=== PATIENT | female | born 1945 | race Caucasian/White ===

== ENCOUNTER 2016-12-09 09:41 | Inpatient (IN) | payer MEDICARE ==
[2016-12-09] MEDS ORDERED: SODIUM CHLORIDE 0.9% 1,000 ML IV STA (10:49)
[2016-12-09] MEDS ORDERED: IPRATROPIUM-ALBUTEROL 3 ML NEB INHALATION STA (10:50)
--- NOTE | 2016-12-09 10:55 | ED ---
General Adult HPI <Mark Perez - Last Filed: 12/09/16 14:35> - General Source: patient, RN notes reviewed Mode of arrival: ambulatory Limitations: no limitations <Jessica Villareal - Last Filed: 12/09/16 15:31> - General Chief complaint: Upper Respiratory Infection Stated complaint: POSS PNEUMONIA Time Seen by Provider: 12/09/16 10:41 - History of Present Illness Initial comments: Patient is a 71-year-old female presents to the emergency room for evaluation of cough and shortness of breath. Patient states she began with throat pain and ear pain about a week ago. Patient states she began developing a productive cough a few days ago. Patient states the cough is getting worse. Patient states she has been having increased shortness of breath. Patient states she has been having low-grade fevers over the past few days. Patient denies receiving influenza vaccine this year. Patient denies history of asthma , COPD or smoking. Patient denies any cardiac history. Patient states she is on medication for blood pressure, cholesterol and diabetes. Patient denies abdominal pain, nausea or vomiting. Patient states she has slight headache. Patient denies dizziness. (Jessica Villareal) - Related Data Home Medications Medication Instructions Recorded Confirmed Aspirin 81 mg PO DAILY 01/06/15 12/09/16 Atenolol [Tenormin] 25 mg PO DAILY 01/06/15 12/09/16 Enalapril [Vasotec] 5 mg PO DAILY 01/06/15 12/09/16 Isosorbide Mononitrate ER [Imdur] 30 mg PO DAILY 01/06/15 12/09/16 Albuterol Inhaler [Ventolin Hfa 2 puff INHALATION RT-Q4H PRN 12/09/16 12/09/16 Inhaler] Fluticasone Nasal [place] [Flonase 1 spr EA NOSTRIL DAILY PRN 12/09/16 12/09/16 Nasal [place]] Insulin Aspart [NovoLOG] 20 unit SQ AC-TID MDD MAX 90UNITS 12/09/16 12/09/16 TOTAL Insulin Aspart [NovoLOG] See Protocol SQ AC-TID MDD MAX 90 12/09/16 12/09/16 UNITS TOTAL Insulin Glargine,Hum.rec.anlog 70 units SQ HS 12/09/16 12/09/16 [Daily Steele] Allergies Allergy/AdvReac Type Severity Reaction Status Date / Time azithromycin Allergy Unknown Verified 09/09/15 21:31 Review of Systems ROS Other: All systems not noted in ROS Statement are negative. <Mark Perez - Last Filed: 12/09/16 14:35> ROS Other: All systems not noted in ROS Statement are negative. <Jessica Villareal - Last Filed: 12/09/16 15:31> ROS Statement: Those systems with pertinent positive or pertinent negative responses have been documented in the HPI. Past Medical History Past Medical History: Diabetes Mellitus, Hyperlipidemia, Hypertension History of Any Multi-Drug Resistant Organisms: None Reported Past Surgical History: Section, Hysterectomy Past Psychological History: No Psychological Hx Reported Smoking Status: Former smoker Past Alcohol Use History: None Reported Past Drug Use History: None Reported <Jessica Villareal - Last Filed: 12/09/16 15:31> General Exam <Mark Perez - Last Filed: 12/09/16 14:35> Limitations: no limitations General appearance: alert, in no apparent distress Head exam: Present: atraumatic, normocephalic, normal inspection Eye exam: Present: normal appearance ENT exam: Present: normal exam, normal oropharynx, mucous membranes moist, TM's normal bilaterally, normal external ear exam Neck exam: Present: normal inspection, full ROM. Absent: tenderness, lymphadenopathy Respiratory exam: Present: wheezes (Expiratory wheezing). Absent: respiratory distress Cardiovascular Exam: Present: regular rate, normal rhythm, normal heart sounds Extremities exam: Present: normal inspection Back exam: Present: normal inspection Neurological exam: Present: alert, oriented X3, CN II-XII intact, normal gait Psychiatric exam: Present: normal affect, normal mood Skin exam: Present: warm, dry, intact, normal color. Absent: rash <Jessica Villareal - Last Filed: 12/09/16 15:31> - General Exam Comments Initial Comments: Sitting in exam room, no acute distress. (Jessica Villareal) Course <Mark Perez - Last Filed: 12/09/16 14:35> <Jessica Villareal - Last Filed: 12/09/16 15:31> Vital Signs 12/09/16 12/09/16 12/09/16 10:13 11:02 11:13 Temperature 98 F Pulse Rate 77 74 77 Respiratory 16 Rate Blood Pressure 138/61 O2 Sat by Pulse 93 L Oximetry 12/09/16 12/09/16 12/09/16 12:45 14:10 15:24 Temperature 97.8 F 98.9 F Pulse Rate 81 72 78 Respiratory 20 18 20 Rate Blood Pressure 123/49 123/59 131/60 O2 Sat by Pulse 96 94 L 95 Oximetry - Reevaluation(s) Reevaluation #1: 12/09/16 14:29 Patient reevaluated by myself, Dr. Perez. Patient still has some difficulty in breathing. Pulse ox dropped to 88 on room air. Patient has wheezing. Dr. Conteh has been paged for admission for Dr. Woodruff. 12/09/16 14:35 Case was discussed in detail with Dr. Conteh, who will admit (Mark Perez) EKG Findings - EKG Comments: EKG Findings:: Normal sinus rhythm, ventricular rate 75 bpm, KS interval 194 ms , QRS duration 82 ms, QT/QTc 400/446 ms <Jessica Villareal - Last Filed: 12/09/16 15:31> Medical Decision Making - Lab Data Result diagrams: 12/09/16 10:52 12/09/16 10:52 <Mark Perez - Last Filed: 12/09/16 14:35> - Lab Data Result diagrams: 12/09/16 10:52 12/09/16 10:52 - Radiology Data Radiology results: report reviewed, image reviewed <Jessica Villareal - Last Filed: 12/09/16 15:31> - Medical Decision Making Patient is a 71-year-old female presents to the emergency room for evaluation cough, shortness of breath. X-ray significant for right middle lobe pneumonia. D-dimer elevated. CT shows no signs of PE. Patient's O2 sat without nasal cannula at 88%. Case discussed with Dr. Perez. Dr. Perez also evaluated patient. Dr. Perez spoke with Dr. Conteh who agreed to admit patient. Plan discussed with patient and her family. (Jessica Villareal) - Lab Data Lab Results 12/09/16 12/09/16 12/09/16 Range/Units 10:52 10:52 10:52 WBC 9.9 (3.8-10.6) k/uL RBC 5.57 H (3.80-5.40) m/uL Hgb 15.6 (11.4-16.0) gm/dL Hct 48.4 H (34.0-46.0) % MCV 86.9 (80.0-100.0) fL MCH 28.1 (25.0-35.0) pg MCHC 32.3 (31.0-37.0) g/dL RDW 14.4 (11.5-15.5) % Plt Count 273 (150-450) k/uL Neutrophils % 68 % Lymphocytes % 20 % Monocytes % 4 % Eosinophils % 6 % Basophils % 0 % Neutrophils # 6.7 (1.3-7.7) k/uL Lymphocytes # 2.0 (1.0-4.8) k/uL Monocytes # 0.4 (0-1.0) k/uL Eosinophils # 0.6 (0-0.7) k/uL Basophils # 0.0 (0-0.2) k/uL PT (9.0-12.0) sec INR (<1.1) APTT (22.0-30.0) sec D-Dimer (<0.60) mg/L FEU Sodium 141 (137-145) mmol/L Potassium 4.5 (3.5-5.1) mmol/L Chloride 98 (98-107) mmol/L Carbon Dioxide 33 H (22-30) mmol/L Anion Gap 10 mmol/L BUN 15 (7-17) mg/dL Creatinine 0.97 (0.52-1.04) mg/dL Est GFR (MDRD) Af Amer >60 (>60 ml/min/1.73 sqM) Est GFR (MDRD) Non-Af 57 (>60 ml/min/1.73 sqM) Glucose 139 H (74-99) mg/dL POC Glucose (mg/dL) (75-99) mg/dL POC Glu Folder Inspector ID Plasma Lactic Acid Gerald (0.7-2.0) mmol/L Calcium 9.4 (8.4-10.2) mg/dL Total Bilirubin 0.8 (0.2-1.3) mg/dL AST 36 (14-36) U/L ALT 43 (9-52) U/L Alkaline Phosphatase 109 (38-126) U/L Total Creatine Kinase 111 (30-135) U/L CK-MB (CK-2) 3.8 H* (0.0-2.4) ng/mL CK-MB (CK-2) Rel Index 3.4 Troponin I <0.012 (0.000-0.034) ng/mL Total Protein 7.1 (6.3-8.2) g/dL Albumin 3.9 (3.5-5.0) g/dL Influenza Type A RNA (Not Detectd) Influenza Type B (PCR) (Not Detectd) 12/09/16 12/09/16 12/09/16 Range/Units 10:52 10:52 10:52 WBC (3.8-10.6) k/uL RBC (3.80-5.40) m/uL Hgb (11.4-16.0) gm/dL Hct (34.0-46.0) % MCV (80.0-100.0) fL MCH (25.0-35.0) pg MCHC (31.0-37.0) g/dL RDW (11.5-15.5) % Plt Count (150-450) k/uL Neutrophils % % Lymphocytes % % Monocytes % % Eosinophils % % Basophils % % Neutrophils # (1.3-7.7) k/uL Lymphocytes # (1.0-4.8) k/uL Monocytes # (0-1.0) k/uL Eosinophils # (0-0.7) k/uL Basophils # (0-0.2) k/uL PT 10.5 (9.0-12.0) sec INR 1.0 (<1.1) APTT 22.7 (22.0-30.0) sec D-Dimer 0.73 H (<0.60) mg/L FEU Sodium (137-145) mmol/L Potassium (3.5-5.1) mmol/L Chloride (98-107) mmol/L Carbon Dioxide (22-30) mmol/L Anion Gap mmol/L BUN (7-17) mg/dL Creatinine (0.52-1.04) mg/dL Est GFR (MDRD) Af Amer (>60 ml/min/1.73 sqM) Est GFR (MDRD) Non-Af (>60 ml/min/1.73 sqM) Glucose (74-99) mg/dL POC Glucose (mg/dL) (75-99) mg/dL POC Glu Folder Inspector ID Plasma Lactic Acid Gerald 1.9 (0.7-2.0) mmol/L Calcium (8.4-10.2) mg/dL Total Bilirubin (0.2-1.3) mg/dL AST (14-36) U/L ALT (9-52) U/L Alkaline Phosphatase (38-126) U/L Total Creatine Kinase (30-135) U/L CK-MB (CK-2) (0.0-2.4) ng/mL CK-MB (CK-2) Rel Index Troponin I (0.000-0.034) ng/mL Total Protein (6.3-8.2) g/dL Albumin (3.5-5.0) g/dL Influenza Type A RNA Not Detected (Not Detectd) Influenza Type B (PCR) Not Detected (Not Detectd) 12/09/16 Range/Units 14:29 WBC (3.8-10.6) k/uL RBC (3.80-5.40) m/uL Hgb (11.4-16.0) gm/dL Hct (34.0-46.0) % MCV (80.0-100.0) fL MCH (25.0-35.0) pg MCHC (31.0-37.0) g/dL RDW (11.5-15.5) % Plt Count (150-450) k/uL Neutrophils % % Lymphocytes % % Monocytes % % Eosinophils % % Basophils % % Neutrophils # (1.3-7.7) k/uL Lymphocytes # (1.0-4.8) k/uL Monocytes # (0-1.0) k/uL Eosinophils # (0-0.7) k/uL Basophils # (0-0.2) k/uL PT (9.0-12.0) sec INR (<1.1) APTT (22.0-30.0) sec D-Dimer (<0.60) mg/L FEU Sodium (137-145) mmol/L Potassium (3.5-5.1) mmol/L Chloride (98-107) mmol/L Carbon Dioxide (22-30) mmol/L Anion Gap mmol/L BUN (7-17) mg/dL Creatinine (0.52-1.04) mg/dL Est GFR (MDRD) Af Amer (>60 ml/min/1.73 sqM) Est GFR (MDRD) Non-Af (>60 ml/min/1.73 sqM) Glucose (74-99) mg/dL POC Glucose (mg/dL) 84 (75-99) mg/dL POC Glu Folder Inspector ID Merry Aly Plasma Lactic Acid Gerald (0.7-2.0) mmol/L Calcium (8.4-10.2) mg/dL Total Bilirubin (0.2-1.3) mg/dL AST (14-36) U/L ALT (9-52) U/L Alkaline Phosphatase (38-126) U/L Total Creatine Kinase (30-135) U/L CK-MB (CK-2) (0.0-2.4) ng/mL CK-MB (CK-2) Rel Index Troponin I (0.000-0.034) ng/mL Total Protein (6.3-8.2) g/dL Albumin (3.5-5.0) g/dL Influenza Type A RNA (Not Detectd) Influenza Type B (PCR) (Not Detectd) Disposition <Mark Perez - Last Filed: 12/09/16 14:35> Decision Date: 12/09/16 <Jessica Villareal - Last Filed: 12/09/16 15:31> Clinical Impression: Pneumonia Disposition: ADMITTED IP TO THIS HOSP Condition: Stable
[2016-12-09 11:12] LABS: Basophils % (A) 0 %; CH 28.1; CHCM 32.5; Eosinophils # (A) 0.6 k/uL (0-0.7); Eosinophils % (A) 6 %; HCT 48.4 % (34.0-46.0); HDW 2.92; HGB 15.6 gm/dL (11.4-16.0); Luc # (Auto) 0.12; Luc % (Auto) 1; Lymphocytes % (A) 20 %; MCH 28.1 pg (25.0-35.0); MCHC 32.3 g/dL (31.0-37.0); MCV 86.9 fL (80.0-100.0); Mean Platelet Volume 7.7; Monocytes # (A) 0.4 k/uL (0-1.0); Monocytes % (A) 4 %; Neutrophils # (A) 6.7 k/uL (1.3-7.7); Neutrophils % (A) 68 %; RBC 5.57 m/uL (3.80-5.40); RDW 14.4 % (11.5-15.5); WBC 9.9 k/uL (3.8-10.6); WBC (Perox) 10.23
[2016-12-09 11:23] LABS: ALT 43 U/L (9-52); AST 36 U/L (14-36); Alkaline Phosphatase 109 U/L (38-126); Anion Gap 10 mmol/L; Blood Urea Nitrogen 15 mg/dL (7-17); Calcium 9.4 mg/dL (8.4-10.2); Carbon Dioxide 33 mmol/L (22-30); Chloride 98 mmol/L (98-107); Glucose 139 mg/dL (74-99); Non-African American GFR(MDRD) 57 (>60 ml/min/1.73 sqM); Potassium 4.5 mmol/L (3.5-5.1); Sodium 141 mmol/L (137-145); Total Bilirubin 0.8 mg/dL (0.2-1.3); Total Protein 7.1 g/dL (6.3-8.2)
[2016-12-09 11:26] LABS: Partial Thromboplastin Time 22.7 sec (22.0-30.0); Prothrombin Time 10.5 sec (9.0-12.0)
[2016-12-09 11:44] LABS: Creatine Kinase 111 U/L (30-135)
[2016-12-09 11:57] LABS: Troponin I <0.012 ng/mL (0.000-0.034)
[2016-12-09 12:05] LABS: Creatine Kinase MB 3.8 ng/mL (0.0-2.4)
--- NOTE | 2016-12-09 12:13 | XR ---
EXAMINATION TYPE: XR chest 2V DATE OF EXAM: 12/09/2016 11:41 AM COMPARISON: 09/13/2016 INDICATION: Difficulty breathing TECHNIQUE: Frontal and lateral views of the chest are obtained. FINDINGS: The heart size is normal. The pulmonary vasculature is normal. Right middle lobe infiltrate is present. Some minimal subsegmental atelectasis may be at the left bas e. IMPRESSION: 1. Right middle lobe infiltrate silhouetting the right heart diaphragm. 2. Minimal streak atelectasis may be at the left lung base.
[2016-12-09] MEDS ORDERED: RX INFO: IV CONTRAST WAS GIVEN 1 EACH MISC MISCELLANE PRN (12:20)
--- NOTE | 2016-12-09 12:58 | CT ---
CT CHEST FOR PULMONARY EMBOLISM. EXAMINATION TYPE: CT angio chest DATE OF EXAM: 12/09/2016 12:46 PM INDICATION: SOB, Cough, recent diagnosis of PE CT DLP: 204 mGycm, Automated exposure control for dose reduction was used. CONTRAST: Patient injected with 100 ml mL of Omnipaque 350. COMPARISON: NONE TECHNIQUE: CT of the chest is performed on a spiral scan at 2 mm thick sections. Study is performed with intravenous contrast timed for evaluation for pulmonary embolism. This will limit additional po rtions of the evaluation. 3-D MIP images reconstructed by the technologist are reviewed on the compu ter in the coronal and sagittal planes. FINDINGS: No persistent filling defects are evident to suggest an acute pulmonary embolism. The ascending aorta diameter at the level of the main pulmonary artery is 2.8 cm. The main pulmonary artery diameter at the bifurcation is 2.3 cm. Emphysematous changes are present. A few patchy upper lobe areas of pneumonitis are present. There ma y be some chronic bronchitis with thickening of the bronchi centrally. Hiatal hernia is present. Vasc ular calcifications within the aorta. There is a borderline enlarged lymph node adjacent to the ascen ding thoracic aorta just above the main pulmonary artery. A few air bronchograms thickening along the mediastinal border with the right middle lobe is present. Correlate for atelectasis. Pneumonia is no t excluded. Limited CT section through the upper abdomen are unremarkable. IMPRESSIONS: 1. Some atelectasis of the right middle lobe may be present medially
[2016-12-09] MEDS ORDERED: LEVOFLOXACIN 500 MG TAB PO STA (13:25)
[2016-12-09] MEDS ORDERED: PNEUMONIA PROTOCOL UTILIZED 1 EACH MISC PO PRN (14:40)
[2016-12-09 14:44] LABS: Glucose,Whole Blood 84 mg/dL (75-99)
[2016-12-09] MEDS ORDERED: FLUTICASONE 50MCG/SPRAY NASAL 16GM EA NOSTRIL PRN (14:44)
[2016-12-09] MEDS: methylPREDNISolone SOD SUCCI 125 MG/2 ML VIAL IV SCH (15:21)
[2016-12-09 16:45] LABS: Glucose,Whole Blood 247 mg/dL (75-99)
[2016-12-09 17:03] VITALS: BMI 29.2
[2016-12-09 17:55] LABS: Glucose,Whole Blood 274 mg/dL (75-99)
[2016-12-09] MEDS: INSULIN LISPRO (humaLOG) 300 UNIT/3 ML VIAL SQ SCH ×3 (18:30→22:26)
[2016-12-09] MEDS: SODIUM CHLORIDE 0.9% 1,000 ML IV SCH (18:31)
[2016-12-09] MEDS ORDERED: PROMETHAZINE 25 MG TAB PO PRN (19:55)
[2016-12-09 20:17] LABS: Appearance,Urine Clear (Clear); Bilirubin,Urine Negative (Negative); Glucose,Urine (UA) 4+ (Negative); Ketones,Urine Negative (Negative); Leukocyte Esterase,Urine Negative (Negative); Nitrite,Urine Negative (Negative); PH, Urine 5.5 (5.0-8.0); Particle Count 1268; Protein,Urine 1+ (Negative); Specific Gravity,Urine 1.024 (1.001-1.035); Squamous Epithelial Cell,Urine <1 /hpf (0-4); UA Billing (MACRO vs. MICRO) MICRO; WBC,Urine 1 /hpf (0-5)
[2016-12-09 21:45] LABS: Glucose,Whole Blood 310 mg/dL (75-99)
[2016-12-09 23:53] LABS: Glucose,Whole Blood 328 mg/dL (75-99)
[2016-12-10] MEDS ORDERED: INSULIN LISPRO (humaLOG) 300 UNIT/3 ML VIAL SQ ONE (00:43)
[2016-12-10 00:54] LABS: Glucose,Whole Blood 311 mg/dL (75-99)
[2016-12-10] MEDS: SODIUM CHLORIDE 0.9% 1,000 ML IV SCH ×2 (05:47→18:23)
[2016-12-10 07:17] LABS: Glucose,Whole Blood 261 mg/dL (75-99)
[2016-12-10] MEDS: INSULIN LISPRO (humaLOG) 300 UNIT/3 ML VIAL SQ SCH ×7 (08:18→22:02)
[2016-12-10] MEDS: ATENOLOL 25 MG TAB PO SCH (08:18)
[2016-12-10] MEDS: LISINOPRIL 10 MG TAB PO SCH (08:18)
[2016-12-10 11:50] LABS: Glucose,Whole Blood 404 mg/dL (75-99)
[2016-12-10] MEDS: INSULIN GLARGINE 100 UNIT/ML 10 ML VIAL SQ SCH ×2 (13:06→22:01)
[2016-12-10] MEDS: ASPIRIN 81 MG CHEW PO SCH (13:07)
[2016-12-10 13:41] LABS: Hemoglobin A1C 8.9 % (4.2-6.1)
[2016-12-10] MEDS ORDERED: LEVOFLOXACIN 750MG-D5W PMX 750 MG in DEXTROSE/WATER 1 150ML.BAG IVPB SCH (14:42)
--- NOTE | 2016-12-10 15:18 | HP ---
DATE OF ADMISSION: PRINCIPAL DIAGNOSIS: Community-acquired pneumonia. HISTORY OF PRESENT ILLNESS: This is a 71-year-old female patient who presented to the emergency department secondary to increasing cough with productive green-yellow sputum. The patient states her symptoms started over a week ago where she developed a sinus infection. She was treated by Dr. Tyrell Woodruff, her primary care physician with antibiotic therapy. She states initially she got better; however, once she was done with the antibiotics, all her symptoms came back. She became more short of breath over the last 24 hours or so and presented to the emergency department. She was admitted to the hospital, started on IV antibiotic therapy, supplemental oxygen, this morning she feels tired, but she states she does feel better than she did yesterday. She has been afebrile overnight. WBC count is normal. Troponin was negative, influenza A and B were also negative. Patient is seen sitting up in bed. She is in no acute distress. REVIEW OF SYSTEMS: Patient denies seizures, syncope, or loss of consciousness. Denies diplopia or visual disturbances. Denies dysphagia. States shortness of breath, cough with productive sputum. Denies wheeze. Denies chest pain, angina or palpitations. Denies abdominal pain, nausea, vomiting, constipation, or diarrhea. Denies dysuria or urinary retention. Denies fever or chills. PAST MEDICAL HISTORY: Hypertension, hypercholesterolemia, diabetes insulin-dependent, abdominal aneurysm, carotid artery disease, hard of hearing. PAST SURGICAL HISTORY: , partial hysterectomy, left breast biopsy 2 weeks ago positive for malignancy. FAMILY HISTORY: Mother from cancer unknown. Father is from CVA. The patient has 15 brothers and sisters, 2 brothers from myocardial infarction. The rest are alive and well. She has 5 children, one daughter with a pacemaker. ALLERGIES: AZITHROMYCIN. HOME MEDICATIONS: 1. NovoLog sliding scale. 2. Flonase 1 spray daily as needed. 3. Vasotec 5 mg daily. 4. Ventolin inhaler 2 puffs q.4 p.r.n. 5. Imdur 30 mg daily. 6. Tenormin 25 mg daily. 7. NovoLog 20 units a.c. t.i.d. 8. Toujeo 70 units at bedtime. 9. Aspirin 81 mg daily. PHYSICAL EXAMINATION: VITAL SIGNS: Temperature is 97.5, heart rate 72, respiratory rate is 17, blood pressure is 136/73, pulse oximetry is 98% on 2 L. GENERAL: Patient is seen lying in bed, in no acute distress. HEENT: Head is normocephalic, atraumatic. Pupils equal. Conjunctivae are clear. NECK: Supple, no JVD. LUNGS: Clear anteriorly, diminished posterior at the bases. No wheezes, rales, or rhonchi appreciated. HEART: Regular rate and rhythm. No murmur. Abdomen is soft, nontender. Bowel sounds positive. EXTREMITIES: No lower extremity edema is noted. NEURO: Patient is alert, oriented x3. Speech is clear, interactive and appropriate. No tremors noted. LABS: Sodium is 141, potassium is 4.5, BUN is 15, creatinine is 0.97. WBC count is 9.9, hemoglobin is 15.6, platelet count is 273, troponin is negative. Urinalysis is negative, urinalysis is negative, influenza A and B are negative. DIAGNOSTIC TESTS: CAT scan of the chest is negative for pulmonary embolism. Ascending aortic aneurysm at the level of the main pulmonary artery is 2.8 cm and emphysema changes are present. Chest x-ray shows right middle lobe infiltrate with atelectasis at the left base. IMPRESSION: 1. Right middle lobe pneumonia, community-acquired, failed outpatient treatment. Continue with IV antibiotic therapy, IV Solu-Medrol and updraft treatments. 2. Diabetes type 2. We convert Toujeo to Lantus, continue with mealtime insulin with sliding scale and Accu-Cheks a.c. and at bedtime. 3. Hypertension. Continue with lisinopril and atenolol. 4. Hyperlipidemia. Patient is diet controlled at this time but would benefit from a statin regardless of her cholesterol secondary to her diabetes. 5. Gastrointestinal prophylaxis, patient will be placed on Protonix. 6. Deep venous thrombosis prophylaxis, continue with Lovenox.
[2016-12-10 17:07] LABS: Glucose,Whole Blood 256 mg/dL (75-99)
[2016-12-10] MEDS: methylPREDNISolone SOD SUCCI 40 MG/ML 1 ML VIAL IV SCH ×2 (18:22→23:56)
[2016-12-10] MEDS: methylPREDNISolone SOD SUCCI 125 MG/2 ML VIAL IV SCH (18:53)
[2016-12-10 21:46] LABS: Glucose,Whole Blood 324 mg/dL (75-99)
[2016-12-11 02:28] LABS: Glucose,Whole Blood 320 mg/dL (75-99)
[2016-12-11] MEDS: SODIUM CHLORIDE 0.9% 1,000 ML IV SCH (05:23)
[2016-12-11 06:53] LABS: Glucose,Whole Blood 312 mg/dL (75-99)
[2016-12-11] MEDS: INSULIN GLARGINE 100 UNIT/ML 10 ML VIAL SQ SCH ×2 (08:54→20:32)
[2016-12-11] MEDS: INSULIN LISPRO (humaLOG) 300 UNIT/3 ML VIAL SQ SCH ×7 (08:54→20:32)
[2016-12-11] MEDS: LISINOPRIL 10 MG TAB PO SCH (08:55)
[2016-12-11] MEDS: ASPIRIN 81 MG CHEW PO SCH (08:55)
[2016-12-11] MEDS: PANTOPRAZOLE 40 MG TABLET PO SCH (08:55)
[2016-12-11] MEDS: ATENOLOL 25 MG TAB PO SCH (08:55)
[2016-12-11] MEDS: ISOSORBIDE MONONITRATE ER 30 MG TAB.ER.24H PO SCH (08:55)
[2016-12-11] MEDS: methylPREDNISolone SOD SUCCI 40 MG/ML 1 ML VIAL IV SCH ×3 (08:55→23:06)
[2016-12-11 09:46] LABS: Basophils % (A) 0 %; CHCM 31.9; Eosinophils # (A) 0.1 k/uL (0-0.7); Eosinophils % (A) 1 %; HCT 46.2 % (34.0-46.0); HDW 2.82; Hypochromasia Slight; Luc # (Auto) 0.04; Luc % (Auto) 0; Lymphocytes # (A) 1.2 k/uL (1.0-4.8); Lymphocytes % (A) 7 %; MCH 28.6 pg (25.0-35.0); MCHC 32.4 g/dL (31.0-37.0); MCV 88.5 fL (80.0-100.0); Monocytes # (A) 0.4 k/uL (0-1.0); Monocytes % (A) 2 %; Neutrophils # (A) 15.4 k/uL (1.3-7.7); Neutrophils % (A) 90 %; RBC 5.22 m/uL (3.80-5.40); WBC 17.1 k/uL (3.8-10.6)
[2016-12-11 10:20] LABS: Anion Gap 15 mmol/L; Blood Urea Nitrogen 32 mg/dL (7-17); Calcium 9.7 mg/dL (8.4-10.2); Carbon Dioxide 27 mmol/L (22-30); Chloride 98 mmol/L (98-107); Glucose 345 mg/dL (74-99); Non-African American GFR(MDRD) 55 (>60 ml/min/1.73 sqM); Potassium 5.3 mmol/L (3.5-5.1); Sodium 140 mmol/L (137-145)
[2016-12-11 11:36] LABS: Glucose,Whole Blood 404 mg/dL (75-99)
[2016-12-11] MEDS ORDERED: LEVOFLOXACIN 750 MG TAB PO SCH (12:00)
[2016-12-11] MEDS: IPRATROPIUM-ALBUTEROL 3 ML NEB INHALATION PRN (12:16)
[2016-12-11] MEDS: ENOXAPARIN 40 MG/0.4 ML SYRINGE SQ SCH (13:11)
--- NOTE | 2016-12-11 14:59 | P.PN ---
Subjective This is a 71-year-old female. Her primary care physician is Dr. Tyrell Woodruff. She has a past medical history for hypertension, hyperlipidemia, diabetes mellitus type 2 insulin-dependent, abdominal aneurysm, carotid artery disease, hard of hearing. Patient complains of a green-yellow sputum production and cough starting over a week ago when she developed a sinus infection. She was treated as an outpatient by Dr. Tyrell Woodruff with antibiotics. She states initially she got better however when she was done with the antibiotics or symptoms came back and she was more short of breath over the past 24 hours. Patient came into the hospital for evaluation. She was started on IV antibiotics, oxygen therapy. Troponin was negative. Influenza A and B were negative. Patient is currently on Solu-Medrol 40 mg every 8 hours. She does not have home O2. IV Levaquin will be switched to oral and IV fluids to saline lock. Patient lives at home with her daughter and plans to return there at discharge. Anticipate possible discharge the next 24-48 hours. Objective - Vital Signs Vital signs: Vital Signs Temp 96.0 F L 12/11/16 07:00 Pulse 88 12/11/16 12:30 Resp 17 12/11/16 07:00 BP 166/70 12/11/16 07:00 Pulse Ox 97 12/11/16 08:22 Intake & Output 12/10/16 12/11/16 12/11/16 18:59 06:59 18:59 Intake Total 500 600 Balance 500 600 Intake: IV 600 Sodium Chloride 0.9% 1, 600 000 ml @ 75 mls/hr IV . [id number] [facility] Rx#:[id number] Oral 500 Other: # Voids 3 3 - Exam Gen: This is a 71-year-old female. She is sitting up in bed and appears to be in no acute distress. HEENT: Head is atraumatic, normocephalic. Pupils equal, round. Sclerae is anicteric. NECK: Supple. No JVD. No lymphadenopathy. No thyromegaly. LUNGS: Diminished to the bases. Harsh cough noted.. No intercostal retractions. HEART: Regular rate and rhythm. No murmur. ABDOMEN: Soft. Bowel sounds are present. No masses. No tenderness. EXTREMITIES: No pedal edema. No calf tenderness. NEUROLOGICAL: Patient is awake, alert and oriented x3. Cranial nerves 2 through 12 are grossly intact. - Labs CBC & Chem 7: 12/11/16 08:54 12/11/16 08:54 Labs: Abnormal Lab Results - Last 24 Hours (Table) 12/10/16 12/10/16 12/11/16 Range/Units 17:05 21:29 02:25 WBC (3.8-10.6) k/uL Hct (34.0-46.0) % Neutrophils # (1.3-7.7) k/uL Potassium (3.5-5.1) mmol/L BUN (7-17) mg/dL Glucose (74-99) mg/dL POC Glucose (mg/dL) 256 H 324 H 320 H (75-99) mg/dL 12/11/16 12/11/16 12/11/16 Range/Units 06:51 08:54 08:54 WBC 17.1 H (3.8-10.6) k/uL Hct 46.2 H (34.0-46.0) % Neutrophils # 15.4 H (1.3-7.7) k/uL Potassium 5.3 H (3.5-5.1) mmol/L BUN 32 H (7-17) mg/dL Glucose 345 H (74-99) mg/dL POC Glucose (mg/dL) 312 H (75-99) mg/dL 12/11/16 Range/Units 11:34 WBC (3.8-10.6) k/uL Hct (34.0-46.0) % Neutrophils # (1.3-7.7) k/uL Potassium (3.5-5.1) mmol/L BUN (7-17) mg/dL Glucose (74-99) mg/dL POC Glucose (mg/dL) 404 H (75-99) mg/dL Microbiology - Last 24 Hours (Table) 12/09/16 20:05 Urine Culture - Final Urine,Voided Assessment and Plan Plan: 1. Middle lobe pneumonia, failed outpatient treatment, possible gram-negative pneumonia. Continue Levaquin which will be switched to oral. Continue Solu- Medrol 40 mg every 8 hours. Continue DuoNeb treatments. 2. Diabetes mellitus type 2. Continue Lantus and sliding insulin scale. Lantus will be increased due to hyperglycemia from steroids. 3. Hypertension. Continue lisinopril and atenolol. 4. Hyperlipidemia. Diet control. 5. Gastrointestinal prophylaxis. Continue Protonix. 6. DVT prophylaxis. Continue Lovenox. Discharge plan: Home with daughter in the next 24-48 hours. Impression and plan of care have been directed as dictated by the signing physician. Sanam Dow nurse practitioner acting as scribe for signing physician. Time with Patient: Greater than 30
[2016-12-11 17:04] LABS: Glucose,Whole Blood 403 mg/dL (75-99)
[2016-12-11 20:38] LABS: Glucose,Whole Blood 406 mg/dL (75-99)
[2016-12-12 02:26] LABS: Glucose,Whole Blood 329 mg/dL (75-99)
[2016-12-12 06:57] LABS: Glucose,Whole Blood 288 mg/dL (75-99)
[2016-12-12] MEDS: PANTOPRAZOLE 40 MG TABLET PO SCH (08:13)
[2016-12-12] MEDS: methylPREDNISolone SOD SUCCI 40 MG/ML 1 ML VIAL IV SCH (08:13)
[2016-12-12] MEDS: ENOXAPARIN 40 MG/0.4 ML SYRINGE SQ SCH (08:13)
[2016-12-12] MEDS: ATENOLOL 25 MG TAB PO SCH (08:13)
[2016-12-12] MEDS: ASPIRIN 81 MG CHEW PO SCH (08:13)
[2016-12-12] MEDS: ISOSORBIDE MONONITRATE ER 30 MG TAB.ER.24H PO SCH (08:14)
[2016-12-12] MEDS: LISINOPRIL 10 MG TAB PO SCH (08:14)
[2016-12-12] MEDS: INSULIN LISPRO (humaLOG) 300 UNIT/3 ML VIAL SQ SCH ×9 (08:14→20:18)
[2016-12-12] MEDS: IPRATROPIUM-ALBUTEROL 3 ML NEB INHALATION PRN (09:08)
[2016-12-12] MEDS: INSULIN GLARGINE 100 UNIT/ML 10 ML VIAL SQ SCH ×2 (09:11→20:18)
[2016-12-12 10:06] LABS: Anion Gap 12 mmol/L; Blood Urea Nitrogen 31 mg/dL (7-17); Calcium 9.1 mg/dL (8.4-10.2); Carbon Dioxide 28 mmol/L (22-30); Chloride 97 mmol/L (98-107); Glucose 395 mg/dL (74-99); Non-African American GFR(MDRD) 54 (>60 ml/min/1.73 sqM); Potassium 4.8 mmol/L (3.5-5.1); Sodium 137 mmol/L (137-145)
[2016-12-12 10:39] LABS: Basophils % (A) 0 %; CH 27.6; CHCM 30.6; Eosinophils % (A) 0 %; HDW 2.73; HGB 14.3 gm/dL (11.4-16.0); Hypochromasia Moderate; Luc # (Auto) 0.05; Luc % (Auto) 0; Lymphocytes # (A) 1.4 k/uL (1.0-4.8); Lymphocytes % (A) 9 %; MCH 28.3 pg (25.0-35.0); MCHC 31.2 g/dL (31.0-37.0); MCV 90.8 fL (80.0-100.0); Mean Platelet Volume 7.9; Monocytes # (A) 0.3 k/uL (0-1.0); Monocytes % (A) 2 %; Neutrophils # (A) 14.1 k/uL (1.3-7.7); Neutrophils % (A) 89 %; RBC 5.07 m/uL (3.80-5.40); RDW 13.8 % (11.5-15.5); WBC 15.8 k/uL (3.8-10.6); WBC (Perox) 15.98
[2016-12-12 12:16] LABS: Glucose,Whole Blood 388 mg/dL (75-99)
[2016-12-12] MEDS ORDERED: ONDANSETRON 4 MG/2 ML VIAL IVP PRN (12:29)
[2016-12-12] MEDS ORDERED: INFLUENZA VACCINE (3YR+) 60 MCG/0.5 ML SYRINGE IM ONE (14:43)
[2016-12-12] MEDS ORDERED: PNEUMOCOCCAL VACC-PNEUMOVAX 23 25 MCG/0.5 ML VIAL IM ONE (14:43)
--- NOTE | 2016-12-12 15:50 | P.PN ---
Subjective This is a 71-year-old female. Her primary care physician is Dr. Tyrell Woodruff. She has a past medical history for hypertension, hyperlipidemia, diabetes mellitus type 2 insulin-dependent, abdominal aneurysm, carotid artery disease, hard of hearing. Patient complains of a green-yellow sputum production and cough starting over a week ago when she developed a sinus infection. She was treated as an outpatient by Dr. Tyrell Woodruff with antibiotics. She states initially she got better however when she was done with the antibiotics or symptoms came back and she was more short of breath over the past 24 hours. Patient came into the hospital for evaluation. She was started on IV antibiotics, oxygen therapy. Troponin was negative. Influenza A and B were negative. Patient is currently on Solu-Medrol 40 mg every 8 hours. She does not have home O2. IV Levaquin will be switched to oral and IV fluids to saline lock. Patient lives at home with her daughter and plans to return there at discharge. Anticipate possible discharge the next 24-48 hours. 12/12: Patient continues to have cough with clear sputum production. She denies any chest pain except with coughing. She is complaining of some nausea for which Zofran added. Solu-Medrol will be switched over to prednisone in the morning with anticipation of a ready for discharge. Objective - Vital Signs Vital signs: Vital Signs Temp 97.2 F L 12/12/16 07:00 Pulse 78 12/12/16 09:22 Resp 18 12/12/16 07:00 BP 137/59 12/12/16 07:00 Pulse Ox 96 12/12/16 07:00 Intake & Output 12/11/16 12/12/16 12/12/16 18:59 06:59 18:59 Intake Total 600 700 Balance 600 700 Weight 77.111 kg Intake: IV 600 Sodium Chloride 0.9% 1, 600 000 ml @ 75 mls/hr IV . [id number] [facility] Rx#:[id number] Oral 700 Other: Voiding Method Toilet # Voids 1 2 - Exam Gen: This is a 71-year-old female. She is sitting up in bed and appears to be in no acute distress. HEENT: Head is atraumatic, normocephalic. Pupils equal, round. Sclerae is anicteric. NECK: Supple. No JVD. No lymphadenopathy. No thyromegaly. LUNGS: Diminished to the bases. Harsh cough noted.. No intercostal retractions. HEART: Regular rate and rhythm. No murmur. ABDOMEN: Soft. Bowel sounds are present. No masses. No tenderness. EXTREMITIES: No pedal edema. No calf tenderness. NEUROLOGICAL: Patient is awake, alert and oriented x3. Cranial nerves 2 through 12 are grossly intact. - Labs CBC & Chem 7: 12/12/16 08:56 12/12/16 08:56 Labs: Abnormal Lab Results - Last 24 Hours (Table) 12/11/16 12/11/16 12/12/16 Range/Units 17:02 20:18 02:10 WBC (3.8-10.6) k/uL Neutrophils # (1.3-7.7) k/uL Chloride (98-107) mmol/L BUN (7-17) mg/dL Glucose (74-99) mg/dL POC Glucose (mg/dL) 403 H 406 H 329 H (75-99) mg/dL 12/12/16 12/12/16 12/12/16 Range/Units 06:56 08:56 08:56 WBC 15.8 H (3.8-10.6) k/uL Neutrophils # 14.1 H (1.3-7.7) k/uL Chloride 97 L (98-107) mmol/L BUN 31 H (7-17) mg/dL Glucose 395 H (74-99) mg/dL POC Glucose (mg/dL) 288 H (75-99) mg/dL 12/12/16 Range/Units 12:14 WBC (3.8-10.6) k/uL Neutrophils # (1.3-7.7) k/uL Chloride (98-107) mmol/L BUN (7-17) mg/dL Glucose (74-99) mg/dL POC Glucose (mg/dL) 388 H (75-99) mg/dL Assessment and Plan Plan: 1. Middle lobe pneumonia, failed outpatient treatment, possible gram-negative pneumonia. Continue Levaquin which will be switched to oral. Solu-Medrol changed to oral prednisone. Continue DuoNeb treatments. 2. Diabetes mellitus type 2. Continue Lantus and sliding insulin scale. Lantus will be increased due to hyperglycemia from steroids. 3. Hypertension. Continue lisinopril and atenolol. 4. Hyperlipidemia. Diet control. 5. Gastrointestinal prophylaxis. Continue Protonix. 6. DVT prophylaxis. Continue Lovenox. Discharge plan: Home with daughter in the next 24 hours. Impression and plan of care have been directed as dictated by the signing physician. Sanam Dow nurse practitioner acting as scribe for signing physician. Time with Patient: Greater than 30
[2016-12-12 16:31] LABS: Glucose,Whole Blood 309 mg/dL (75-99)
[2016-12-12 20:28] LABS: Glucose,Whole Blood 245 mg/dL (75-99)
[2016-12-12 23:53] LABS: Glucose,Whole Blood 225 mg/dL (75-99)
[2016-12-13] MEDS: INSULIN LISPRO (humaLOG) 300 UNIT/3 ML VIAL SQ SCH ×6 (00:04→13:04)
[2016-12-13 04:01] LABS: Glucose,Whole Blood 145 mg/dL (75-99)
[2016-12-13] MEDS: IPRATROPIUM-ALBUTEROL 3 ML NEB INHALATION PRN (07:49)
[2016-12-13] MEDS: ENOXAPARIN 40 MG/0.4 ML SYRINGE SQ SCH (07:51)
[2016-12-13] MEDS: ATENOLOL 25 MG TAB PO SCH (07:51)
[2016-12-13] MEDS: PANTOPRAZOLE 40 MG TABLET PO SCH (07:51)
[2016-12-13] MEDS: ASPIRIN 81 MG CHEW PO SCH (07:51)
[2016-12-13] MEDS: ISOSORBIDE MONONITRATE ER 30 MG TAB.ER.24H PO SCH (07:51)
[2016-12-13] MEDS: INSULIN GLARGINE 100 UNIT/ML 10 ML VIAL SQ SCH (07:52)
[2016-12-13] MEDS: LISINOPRIL 10 MG TAB PO SCH (07:53)
[2016-12-13 08:02] LABS: Glucose,Whole Blood 115 mg/dL (75-99)
[2016-12-13 08:11] VITALS: BP 144/72; PULSE 69; RESP 18; TEMP 96.5
[2016-12-13] MEDS ORDERED: predniSONE 20 MG TAB PO SCH (09:00)
[2016-12-13 09:31] LABS: Basophils % (A) 0 %; CHCM 31.6; Eosinophils % (A) 0 %; HCT 46.1 % (34.0-46.0); HDW 2.74; HGB 14.3 gm/dL (11.4-16.0); Hypochromasia Slight; Luc % (Auto) 1; Lymphocytes % (A) 23 %; MCH 27.6 pg (25.0-35.0); Mean Platelet Volume 8.8; Monocytes # (A) 0.8 k/uL (0-1.0); Monocytes % (A) 6 %; Neutrophils # (A) 9.1 k/uL (1.3-7.7); Neutrophils % (A) 69 %; RBC 5.18 m/uL (3.80-5.40); RDW 13.9 % (11.5-15.5); WBC 13.1 k/uL (3.8-10.6); WBC (Perox) 12.92
[2016-12-13 09:39] LABS: Anion Gap 11 mmol/L; Blood Urea Nitrogen 31 mg/dL (7-17); Carbon Dioxide 30 mmol/L (22-30); Chloride 100 mmol/L (98-107); Glucose 204 mg/dL (74-99); Non-African American GFR(MDRD) 52 (>60 ml/min/1.73 sqM); Potassium 4.5 mmol/L (3.5-5.1); Sodium 141 mmol/L (137-145)
[2016-12-13 11:50] LABS: Glucose,Whole Blood 293 mg/dL (75-99)
[2016-12-13] MEDS ORDERED: LEVOFLOXACIN 750 MG TAB PO SCH (13:00)
--- NOTE | 2016-12-13 15:04 | P.DS ---
Providers Date of admission: 12/09/16 14:45 Expected date of discharge: 12/13/16 Attending physician: Meri Conteh Primary care physician: Tyrell Woodruff [facility] Course: This is a 71-year-old female. Her primary care physician is Dr. Tyrell Woodruff. She has a past medical history for hypertension, hyperlipidemia, diabetes mellitus type 2 insulin-dependent, abdominal aneurysm, carotid artery disease, hard of hearing. Patient complains of a green-yellow sputum production and cough starting over a week ago when she developed a sinus infection. She was treated as an outpatient by Dr. Tyrell Woodruff with antibiotics. She states initially she got better however when she was done with the antibiotics or symptoms came back and she was more short of breath over the past 24 hours. Patient came into the hospital for evaluation. She was started on IV antibiotics, oxygen therapy. Troponin was negative. Influenza A and B were negative. Patient is currently on Solu-Medrol 40 mg every 8 hours. She does not have home O2. IV Levaquin will be switched to oral and IV fluids to saline lock. Patient lives at home with her daughter and plans to return there at discharge. Anticipate possible discharge the next 24-48 hours. 12/12: Patient continues to have cough with clear sputum production. She denies any chest pain except with coughing. She is complaining of some nausea for which Zofran added. Solu-Medrol will be switched over to prednisone in the morning with anticipation of a ready for discharge. 12/13: Patient is breathing status continues to improve and she is anxious to be discharged home today. Patient will be discharged home in stable condition. Patient was noted to have a pulse ox of 88% on room air and casework supervisor is setting up home oxygen. Discharge diagnoses: 1. Middle lobe pneumonia, failed outpatient treatment, possible gram-negative pneumonia. 2. Diabetes mellitus type 2. 3. Hypertension. 4. Hyperlipidemia. 5. Chronic respiratory failure requiring home oxygen therapy. Discharge plan: Home with daughter Impression and plan of care have been directed as dictated by the signing physician. Sanam Dow nurse practitioner acting as scribe for signing physician. Cc: Dr. Tyrell Woodruff Patient Condition at Discharge: Good Plan - Discharge Summary New Discharge Prescriptions: Levofloxacin [Levaquin] 750 mg PO Q48H #3 tab predniSONE 0 mg PO DIRECTED #40 tab Discharge Medication List Aspirin 81 mg PO DAILY 02/18/15 [History] Atenolol [Tenormin] 25 mg PO DAILY 01/06/15 [History] Enalapril [Vasotec] 5 mg PO DAILY 01/06/15 [History] Isosorbide Mononitrate ER [Imdur] 30 mg PO DAILY 01/06/15 [History] Albuterol Inhaler [Ventolin Hfa Inhaler] 2 puff INHALATION RT-Q4H PRN 12/09/16 [ History] Fluticasone Nasal [place] [Flonase Nasal [place]] 1 spr EA NOSTRIL DAILY PRN [History] Insulin Aspart [NovoLOG] 20 unit SQ AC-TID MDD MAX 90UNITS TOTAL 12/09/16 [ History] Insulin Aspart [NovoLOG] See Protocol SQ AC-TID MDD MAX 90 UNITS TOTAL 12/09/16 [History] Insulin Glargine,Hum.rec.anlog [Toujeo Solostar] 70 units SQ HS 12/09/16 [ History] Levofloxacin [Levaquin] 750 mg PO Q48H #3 tab 12/13/16 [Rx] predniSONE 0 mg PO DIRECTED #40 tab 12/13/16 [Rx] Follow up Appointment(s)/Referral(s): Tyrell Woodruff MD [Primary Care Provider] - 1 Week (Office currently closed, please call for appointment. ) Patient Instructions/Handouts: Type 2 Diabetes in Adults (DC), Pneumonia (DC) Activity/Diet/Wound Care/Special Instructions: Cardiac, diabetic diet Home Oxygen with [facility] #[phone] Discharge Disposition: HOME SELF-CARE
== END 2016-12-13 15:29 | disposition home or self-care (01) | DRG 178 ==
LOC: EC 09:41 → 4MS4W 14:45
PROVIDERS: ADMIT Internal Medicine; ATTEND Internal Medicine
DX: J15.6 Pneumonia due to other Gram-negative bacteria (principal); J96.10 Chronic respiratory failure, unspecified whether with hypoxia or hypercapnia; Z99.81 Dependence on supplemental oxygen; E11.9 Type 2 diabetes mellitus without complications; I10 Essential (primary) hypertension; E78.00 Pure hypercholesterolemia, unspecified; E78.5 Hyperlipidemia, unspecified; H91.90 Unspecified hearing loss, unspecified ear; I71.4 Abdominal aortic aneurysm, without rupture; I77.89 Other specified disorders of arteries and arterioles; Z79.4 Long term (current) use of insulin; Z79.82 Long term (current) use of aspirin; Z79.899 Other long term (current) drug therapy; Z88.1 Allergy status to other antibiotic agents; Z87.891 Personal history of nicotine dependence; Z82.49 Family history of ischemic heart disease and other diseases of the circulatory system
CPT/HCPCS: 36415; 71020; 71275; 80048; 80053; 81001; 82550; 82553; 83036; 83605; 84484; 85025; 85379; 85610; 85730; 87040; 87086; 87502; 93005; 94640; 94760; 96361; 96374; 99285

== ENCOUNTER 2016-12-17 19:51 | Inpatient (IN) | payer MEDICARE ==
[2016-12-17] MEDS ORDERED: PANTOPRAZOLE 40 MG/10 ML VIAL IVP STA (20:22)
[2016-12-17] MEDS ORDERED: ONDANSETRON 4 MG/2 ML VIAL IVP STA (20:22)
[2016-12-17] MEDS ORDERED: SODIUM CHLORIDE 0.9% 1,000 ML IV STA (20:22)
[2016-12-17] MEDS ORDERED: SODIUM CHLORIDE 0.9% 500 ML IV STA (20:22)
--- NOTE | 2016-12-17 20:35 | ED ---
General Adult HPI - General Chief complaint: Abdominal Pain Stated complaint: upper abdominal pain Source: patient, family, RN notes reviewed, old records reviewed Mode of arrival: wheelchair Limitations: no limitations - History of Present Illness Initial comments: Chief complaint and history of present illness a 71-year-old female with complaint of epigastric discomfort getting progressively worse over the past day and a half. She vomited once yesterday. Decreased appetite. - Related Data Home Medications Medication Instructions Recorded Confirmed Aspirin 81 mg PO DAILY 01/06/15 12/09/16 Atenolol [Tenormin] 25 mg PO DAILY 01/06/15 12/09/16 Enalapril [Vasotec] 5 mg PO DAILY 01/06/15 12/09/16 Isosorbide Mononitrate ER [Imdur] 30 mg PO DAILY 01/06/15 12/09/16 Albuterol Inhaler [Ventolin Hfa 2 puff INHALATION RT-Q4H PRN 12/09/16 12/09/16 Inhaler] Fluticasone Nasal [facility] [Flonase 1 spr EA NOSTRIL DAILY PRN 12/09/16 12/09/16 Nasal [facility]] Insulin Aspart [NovoLOG] 20 unit SQ AC-TID MDD MAX 90UNITS 12/09/16 12/09/16 TOTAL Insulin Aspart [NovoLOG] See Protocol SQ AC-TID MDD MAX 90 12/09/16 12/09/16 UNITS TOTAL Insulin Glargine,Hum.rec.anlog 70 units SQ HS 12/09/16 12/09/16 [Daily [place]] Previous Rx's Medication Instructions Recorded Levofloxacin [Levaquin] 750 mg PO Q48H #3 tab 12/13/16 predniSONE 0 mg PO DIRECTED #40 tab 12/13/16 Allergies Allergy/AdvReac Type Severity Reaction Status Date / Time azithromycin Allergy Unknown Verified 12/17/16 20:16 Review of Systems ROS Statement: Those systems with pertinent positive or pertinent negative responses have been documented in the HPI. Review of systems no headache or visual acuity changes no chest pain or shortness of breath patient points to epigastric region as area discomfort. Raiding around toward the upper left quadrant area. Nausea today vomited once yesterday. No diarrhea. No change in color stool. Appetite is decreased. All systems reviewed. Past medical problems significant for insulin-dependent diabetes mellitus, hyperlipidemia, hypertension and kidney stones. Patient worsens does not feel any kidney stone. Her surgeries include a , hysterectomy and left breast biopsy which daughter reports positive for very early breast cancer patient follow-up with radiation is being arranged. The family history includes mother had breast cancer. Patient quit smoking 20 years ago denies alcohol use. ROS Other: All systems not noted in ROS Statement are negative. Past Medical History Past Medical History: Diabetes Mellitus, Hyperlipidemia, Hypertension Additional Past Medical History / Comment(s): KIDNEY STONES. History of Any Multi-Drug Resistant Organisms: None Reported Past Surgical History: Section, Hysterectomy Additional Past Surgical History / Comment(s): LEFT BREAST BIOPSY R/T POSITIVE MAMMOGRAM. Past Anesthesia/Blood Transfusion Reactions: No Reported Reaction Past Psychological History: No Psychological Hx Reported Smoking Status: Former smoker Past Alcohol Use History: None Reported Past Drug Use History: None Reported - Past Family History Brother(s) Family Medical History: Congestive Heart Failure (CHF) Mother Additional Family Medical History / Comment(s): BREAST CANCER WITH METS TO LIVER AND BODY General Exam - General Exam Comments Initial Comments: General: The patient is awake and alert, complaining of epigastric discomfort. Getting progressively worse over the past day and a half. Nausea vomiting one time. Vital signs O2 is 97.8 pulse 87 respiratory rate 20 pulse ox 94% room air blood pressure elevated 198/84. Elevated blood pressure noted. Patient is in pain initially brought down with medications as needed. Eye: Pupils are equal, round and reactive to light, extra-ocular movements are intact ; there is normal conjunctiva bilaterally. No signs of icterus. Ears, nose, mouth and throat: There are moist mucous membranes and no oral lesions. Neck: The neck is supple, there is no tenderness . Cardiovascular: There is a regular rate and rhythm. No murmur, rub or gallop is appreciated. Respiratory: Lungs are clear to auscultation, respirations are non-labored, breath sounds are equal. No wheezes, stridor, rales, or rhonchi. Gastrointestinal: Tender epigastric region. Voluntary guarding. No rebound or referred pain to that area. Normal active bowel sounds. Family reports history of abdominal aortic aneurysm last measured approximately a year ago at between 3 and 4 cm. Back: No complaint of any back pain. No radiation of pain. Musculoskeletal: No complaint of pain to the upper or lower extremities. Neurological: No noted or complained of neuro deficits. Skin: Skin is warm and dry and no rashes or lesions are noted. Limitations: no limitations Course Vital Signs 12/17/16 12/17/16 12/17/16 20:07 21:45 23:35 Temperature 97.8 F Pulse Rate 87 82 73 Respiratory 20 18 Rate Blood Pressure 198/84 187/77 O2 Sat by Pulse 94 L 94 L Oximetry 12/17/16 23:44 Temperature Pulse Rate 79 Respiratory Rate Blood Pressure O2 Sat by Pulse Oximetry Medical Decision Making - Medical Decision Making Labs show white count of 15.2 hemoglobin 15 hematocrit of 47, INR 1.1, potassium is 4.9 with a BUN 20 creatinine 0.8 GFR greater than 60. Glucose 210. AST ALT both elevated. Amylase and lipase within normal limits. Urine clean no signs of infection. Chest x-ray was done and reviewed and compared to a chest x-ray that had been done approximately 8 days ago. His impression is radiologist's impression is heart is normal. Lungs are clear consolidation. There are no hilar masses. Thoracic aorta is atheromatous. Bony thorax is intact. Impression; no acute cardiopulmonary disease. No change compared to old exam. As read by Dr. Gastelum X-ray of the abdomen was done and reviewed by radiologist his findings are reviewed. His final impression is no acute abdomen. No change. As read by Dr. Gastelum The patient was given a GI cocktail with lidocaine which helped significantly with the epigastric pain. The patient still is short of breath with a pulse ox in the high 80s. DuoNeb ordered. Patient reports feeling significantly better afterwards. Case discussed with Dr. Pierre on-call for Dr. Woodruff. Patient be admitted for acute exacerbation of COPD. - Lab Data Result diagrams: 12/17/16 20:25 12/17/16 20:25 Lab Results 12/17/16 12/17/16 12/17/16 Range/Units 20:25 20:25 20:25 WBC 15.2 H (3.8-10.6) k/uL RBC 5.50 H (3.80-5.40) m/uL Hgb 15.3 (11.4-16.0) gm/dL Hct 47.2 H (34.0-46.0) % MCV 85.8 (80.0-100.0) fL MCH 27.8 (25.0-35.0) pg MCHC 32.4 (31.0-37.0) g/dL RDW 13.8 (11.5-15.5) % Plt Count 218 (150-450) k/uL Neutrophils % 85 % Lymphocytes % 10 % Monocytes % 4 % Eosinophils % 1 % Basophils % 0 % Neutrophils # 12.8 H (1.3-7.7) k/uL Lymphocytes # 1.5 (1.0-4.8) k/uL Monocytes # 0.6 (0-1.0) k/uL Eosinophils # 0.2 (0-0.7) k/uL Basophils # 0.0 (0-0.2) k/uL PT (9.0-12.0) sec INR (<1.1) Sodium 138 (137-145) mmol/L Potassium 4.9 (3.5-5.1) mmol/L Chloride 98 (98-107) mmol/L Carbon Dioxide 30 (22-30) mmol/L Anion Gap 10 mmol/L BUN 20 H (7-17) mg/dL Creatinine 0.80 (0.52-1.04) mg/dL Est GFR (MDRD) Af Amer >60 (>60 ml/min/1.73 sqM) Est GFR (MDRD) Non-Af >60 (>60 ml/min/1.73 sqM) Glucose 210 H (74-99) mg/dL POC Glucose (mg/dL) (75-99) mg/dL POC Glu Automatic Lathe Setter ID Plasma Lactic Acid Gerald 2.6 H* (0.7-2.0) mmol/L Calcium 9.5 (8.4-10.2) mg/dL Total Bilirubin 0.5 (0.2-1.3) mg/dL AST 41 H (14-36) U/L ALT 72 H (9-52) U/L Alkaline Phosphatase 127 H (38-126) U/L Total Protein 6.5 (6.3-8.2) g/dL Albumin 3.7 (3.5-5.0) g/dL Amylase 35 (30-110) U/L Lipase 63 (23-300) U/L Urine Color Urine Appearance (Clear) Urine pH (5.0-8.0) Ur Specific [place] (1.001-1.035) Urine Protein (Negative) Urine Glucose (UA) (Negative) Urine Ketones (Negative) Urine Blood (Negative) Urine Nitrate (Negative) Urine Bilirubin (Negative) Urine Urobilinogen (<2.0) mg/dL Ur Leukocyte Esterase (Negative) 12/17/16 12/17/16 12/17/16 Range/Units 20:25 21:17 23:55 WBC (3.8-10.6) k/uL RBC (3.80-5.40) m/uL Hgb (11.4-16.0) gm/dL Hct (34.0-46.0) % MCV (80.0-100.0) fL MCH (25.0-35.0) pg MCHC (31.0-37.0) g/dL RDW (11.5-15.5) % Plt Count (150-450) k/uL Neutrophils % % Lymphocytes % % Monocytes % % Eosinophils % % Basophils % % Neutrophils # (1.3-7.7) k/uL Lymphocytes # (1.0-4.8) k/uL Monocytes # (0-1.0) k/uL Eosinophils # (0-0.7) k/uL Basophils # (0-0.2) k/uL PT 10.7 (9.0-12.0) sec INR 1.1 (<1.1) Sodium (137-145) mmol/L Potassium (3.5-5.1) mmol/L Chloride (98-107) mmol/L Carbon Dioxide (22-30) mmol/L Anion Gap mmol/L BUN (7-17) mg/dL Creatinine (0.52-1.04) mg/dL Est GFR (MDRD) Af Amer (>60 ml/min/1.73 sqM) Est GFR (MDRD) Non-Af (>60 ml/min/1.73 sqM) Glucose (74-99) mg/dL POC Glucose (mg/dL) 139 H (75-99) mg/dL POC Glu Automatic Lathe Setter ID Gabby Aguirre Plasma Lactic Acid Gerald (0.7-2.0) mmol/L Calcium (8.4-10.2) mg/dL Total Bilirubin (0.2-1.3) mg/dL AST (14-36) U/L ALT (9-52) U/L Alkaline Phosphatase (38-126) U/L Total Protein (6.3-8.2) g/dL Albumin (3.5-5.0) g/dL Amylase (30-110) U/L Lipase (23-300) U/L Urine Color Colorless Urine Appearance Clear (Clear) Urine pH 5.5 (5.0-8.0) Ur Specific [place] 1.003 (1.001-1.035) Urine Protein Negative (Negative) Urine Glucose (UA) 1+ H (Negative) Urine Ketones Negative (Negative) Urine Blood Negative (Negative) Urine Nitrate Negative (Negative) Urine Bilirubin Negative (Negative) Urine Urobilinogen <2.0 (<2.0) mg/dL Ur Leukocyte Esterase Negative (Negative) Disposition Clinical Impression: Acute exacerbation of chronic obstructive pulmonary disease (COPD), GERD ( gastroesophageal reflux disease) Disposition: ADMITTED IP TO THIS [facility] Condition: Stable
[2016-12-17 20:42] LABS: Basophils % (A) 0 %; CH 28.2; Eosinophils # (A) 0.2 k/uL (0-0.7); Eosinophils % (A) 1 %; HCT 47.2 % (34.0-46.0); HDW 2.78; HGB 15.3 gm/dL (11.4-16.0); Luc # (Auto) 0.07; Luc % (Auto) 0; Lymphocytes # (A) 1.5 k/uL (1.0-4.8); Lymphocytes % (A) 10 %; MCH 27.8 pg (25.0-35.0); MCHC 32.4 g/dL (31.0-37.0); MCV 85.8 fL (80.0-100.0); Mean Platelet Volume 8.6; Monocytes # (A) 0.6 k/uL (0-1.0); Monocytes % (A) 4 %; Neutrophils # (A) 12.8 k/uL (1.3-7.7); Neutrophils % (A) 85 %; RDW 13.8 % (11.5-15.5); WBC 15.2 k/uL (3.8-10.6); WBC (Perox) 15.17
[2016-12-17 20:51] LABS: INR 1.1 (<1.1); Prothrombin Time 10.7 sec (9.0-12.0)
[2016-12-17 20:56] LABS: ALT 72 U/L (9-52); AST 41 U/L (14-36); Alkaline Phosphatase 127 U/L (38-126); Amylase 35 U/L (30-110); Anion Gap 10 mmol/L; Blood Urea Nitrogen 20 mg/dL (7-17); Calcium 9.5 mg/dL (8.4-10.2); Carbon Dioxide 30 mmol/L (22-30); Chloride 98 mmol/L (98-107); Glucose 210 mg/dL (74-99); Non-African American GFR(MDRD) >60 (>60 ml/min/1.73 sqM); Potassium 4.9 mmol/L (3.5-5.1); Sodium 138 mmol/L (137-145); Total Bilirubin 0.5 mg/dL (0.2-1.3); Total Protein 6.5 g/dL (6.3-8.2)
--- NOTE | 2016-12-17 21:01 | XR ---
EXAMINATION TYPE: XR chest 2V DATE OF EXAM: 12/17/2016 8:53 PM COMPARISON: 12/09/2016 HISTORY: Pneumonia cough TECHNIQUE: Frontal and lateral views of the chest are obtained. FINDINGS: Heart is normal. Lungs are clear of consolidation. There are no hilar masses. Thoracic aor ta is atheromatous. Bony thorax is intact. IMPRESSION: No active cardiopulmonary disease. No change compared to old exam.
--- NOTE | 2016-12-17 21:03 | XR ---
EXAMINATION TYPE: XR abdomen 2V DATE OF EXAM: 12/17/2016 8:53 PM COMPARISON: 09/09/2015 HISTORY: Flank pain TECHNIQUE: 3 views FINDINGS: Bowel gas pattern is normal. There is no sign of intestinal obstruction or pneumoperitoneum . Fecal pattern is normal. There are phleboliths in the pelvis. There is moderate spurring in the hip joints. Lung bases are clear. There are no pathologic calcifications over the kidneys. IMPRESSION: Nonacute abdomen. No change.
[2016-12-17] MEDS ORDERED: HYDROmorphone 1 MG/ML 1 ML SYRINGE IVP STA (21:39)
[2016-12-17 21:40] LABS: Appearance,Urine Clear (Clear); Bilirubin,Urine Negative (Negative); Glucose,Urine (UA) 1+ (Negative); Ketones,Urine Negative (Negative); Leukocyte Esterase,Urine Negative (Negative); Nitrite,Urine Negative (Negative); PH, Urine 5.5 (5.0-8.0); Protein,Urine Negative (Negative); Specific Gravity,Urine 1.003 (1.001-1.035); UA Billing (MACRO vs. MICRO) CHEM; Urobilinogen,Urine <2.0 mg/dL (<2.0)
[2016-12-17] MEDS ORDERED: MAG HYDROX/AL HYDROX/SIMETH 30 ML, HYOSCYAMINE ELIXIR 10 ML, CIMETIDINE HCL 300 MG, LID... PO STA ×4 (22:37)
[2016-12-17] MEDS ORDERED: IPRATROPIUM-ALBUTEROL 3 ML NEB INHALATION STA (23:24)
[2016-12-17 23:57] LABS: Glucose,Whole Blood 139 mg/dL (75-99)
[2016-12-18] MEDS ORDERED: NALOXONE 0.4 MG/ML 1 ML VIAL IV PRN (00:28)
[2016-12-18] MEDS ORDERED: FLUTICASONE 50MCG/SPRAY NASAL 16GM EA NOSTRIL PRN (00:31)
[2016-12-18] MEDS ORDERED: IPRATROPIUM-ALBUTEROL 3 ML NEB INHALATION PRN (00:35)
[2016-12-18] MEDS: SODIUM CHLORIDE 0.9% 1,000 ML IV SCH ×2 (02:00→14:20)
[2016-12-18 02:03] LABS: Glucose,Whole Blood 134 mg/dL (75-99)
[2016-12-18 02:10] VITALS: BMI 26.6
[2016-12-18] MEDS: methylPREDNISolone SOD SUCCI 125 MG/2 ML VIAL IV SCH ×4 (02:26→23:30)
[2016-12-18 07:32] LABS: Glucose,Whole Blood 251 mg/dL (75-99)
[2016-12-18] MEDS: ASPIRIN 81 MG CHEW PO SCH (07:51)
[2016-12-18] MEDS: INSULIN LISPRO (humaLOG) 300 UNIT/3 ML VIAL SQ SCH ×4 (07:51→22:46)
[2016-12-18] MEDS: ATENOLOL 25 MG TAB PO SCH ×3 (07:52→14:22)
[2016-12-18] MEDS: PANTOPRAZOLE 40 MG/10 ML VIAL IV SCH (07:52)
[2016-12-18] MEDS: LISINOPRIL 10 MG TAB PO SCH (07:52)
[2016-12-18 11:20] LABS: Hemoglobin A1C 8.9 % (4.2-6.1)
[2016-12-18 12:20] LABS: Glucose,Whole Blood 311 mg/dL (75-99)
[2016-12-18] MEDS: ISOSORBIDE MONONITRATE ER 30 MG TAB.ER.24H PO SCH (14:20)
[2016-12-18] MEDS: LEVOFLOXACIN 750 MG TAB PO SCH (14:20)
[2016-12-18 17:09] LABS: Glucose,Whole Blood 307 mg/dL (75-99)
[2016-12-18] MEDS: ACETAMINOPHEN TAB 325 MG TAB PO PRN ×2 (18:00→23:30)
[2016-12-18 21:10] LABS: Glucose,Whole Blood 297 mg/dL (75-99)
[2016-12-18] MEDS ORDERED: ONDANSETRON 4 MG/2 ML VIAL IVP PRN (21:22)
[2016-12-18] MEDS: HYDROmorphone 1 MG/ML 1 ML SYRINGE IVP PRN (21:34)
[2016-12-18] MEDS: INSULIN GLARGINE 100 UNIT/ML 10 ML VIAL SQ SCH (22:46)
--- NOTE | 2016-12-19 00:08 | P.HPIM ---
History of Present Illness H&P Date: 12/18/16 Chief Complaint: Abdominal pain/possible PUD This is a 71mYear-Old female with a previous medical history significant for hypertension and hypertensive cardiovascular disease, hyperlipidemia,diabetes mellitus type 2, abdominal aortic aneurysm , carotid artery disease, was recently hospitalized at [facility] for right middle lobe pneumonia and COPD exacerbation and was recently discharged few days ago ,patient stated that she was doing fine till fe wdays ago when she developed to have increased abdominal pain located in the epigastric area with her pain described as sharp pain located in the epigastric area radiating to her back so she ended up coming to the ER at [facility] for evaluation and was given solumedrol 125 mg IVP and was admitted for further evaluation. Patient is sitting up in bed in no acute distress and she will be seen by Gastroenterology for possible PUD and will be started on protonix 40 mg IVP daily. Review of Systems Constitutional: Denies anorexia, Denies chronic headaches, Denies fever, Denies lethargy, Denies weakness, Denies weight gain, Denies weight loss Eyes: denies blurred vision, denies bulging eye, denies decreased vision Ears: bilateral: decreased hearing Ears, nose, mouth and throat: Denies dysphagia, Denies neck fullness/pressure, Denies neck lump Cardiovascular: Reports decreased exercise tolerance, Denies chest pain, Denies claudication, Denies lightheadedness, Denies rapid heart beat, Denies shortness of breath, Denies syncope Respiratory: Reports dyspnea, Denies congestion, Denies cough, Denies cough with sputum, Denies home oxygen, Denies sleep apnea, Denies snoring, Denies wheezing Gastrointestinal: Reports abdominal pain, Reports belching, Reports bloating, Reports dyspepsia, Reports early satiety, Reports heartburn, Reports indigestion , Reports loss of appetite, Reports nausea, Denies BRBPR, Denies coffee ground emesis, Denies constipation, Denies hematemesis, Denies hematochezia, Denies jaundice, Denies melena, Denies vomiting Genitourinary: Denies dysuria, Denies hematuria Menstruation: Reports post hysterectomy, Reports postmenopausal Musculoskeletal: Denies myalgias Musculoskeletal: absent: ankle pain, ankle stiffness, ankle swelling, elbow pain , elbow stiffness, elbow swelling, foot pain, foot stiffness, foot swelling, hand pain, hand stiffness, hand swelling, hip pain, hip stiffness, hip swelling , knee pain, knee stiffness, knee swelling, shoulder pain, shoulder stiffness, shoulder swelling, wrist pain, wrist stiffness, wrist swelling Integumentary: Denies pruritus, Denies rash Neurological: Denies numbness, Denies weakness Psychiatric: Denies anxiety, Denies depression Endocrine: Denies fatigue, Denies weight change Past Medical History Past Medical History: Cancer, Diabetes Mellitus, GERD/Reflux, Hearing Disorder / Deafness, Hyperlipidemia, Hypertension, Osteoarthritis (OA), Vascular Disorder Additional Past Medical History / Comment(s): KIDNEY STONES, NEW BREAST CA/ RADIATION TO START FIRST WEEK IN DEC-2016 History of Any Multi-Drug Resistant Organisms: None Reported Past Surgical History: Section, Hysterectomy Additional Past Surgical History / Comment(s): LEFT BREAST BIOPSY R/T POSITIVE MAMMOGRAM. Past Anesthesia/Blood Transfusion Reactions: No Reported Reaction Past Psychological History: No Psychological Hx Reported Smoking Status: Former smoker Past Alcohol Use History: None Reported Past Drug Use History: None Reported - Past Family History Brother(s) Family Medical History: Congestive Heart Failure (CHF), Myocardial Infarction ( [place]) (patient has 15 brothers and sisters 2 brothers from [place].) Mother Additional Family Medical History / Comment(s): BREAST CANCER WITH METS TO LIVER AND BODY Father Family Medical History: CVA/TIA (Father from CVA.) Daughter(s) Family Medical History: No Reported History (patient has 5 children one daughter with a pacemaker.) Medications and Allergies Home Medications Medication Instructions Recorded Confirmed Type Aspirin 81 mg PO DAILY 01/06/15 12/18/16 History Enalapril [Vasotec] 5 mg PO DAILY 01/06/15 12/18/16 History Isosorbide Mononitrate ER [Imdur] 30 mg PO DAILY 01/06/15 12/18/16 History Albuterol Inhaler [Ventolin Hfa 2 puff INHALATION RT-Q4H PRN 12/09/16 12/18/16 History Inhaler] Fluticasone Nasal [place] [Flonase 1 spr EA NOSTRIL DAILY PRN 12/09/16 12/18/16 History Nasal [place]] Insulin Aspart [NovoLOG] 20 unit SQ AC-TID MDD MAX 90UNITS 12/09/16 12/18/16 History TOTAL Insulin Aspart [NovoLOG] See Protocol SQ AC-TID MDD MAX 90 12/09/16 12/18/16 History UNITS TOTAL Insulin Glargine,Hum.rec.anlog 70 units SQ HS 12/09/16 12/18/16 History [Daily Sarinadamaris] Atenolol 25 mg PO DAILY 12/18/16 12/18/16 History predniSONE See Taper PO DAILY 12/18/16 12/18/16 History Allergies Allergy/AdvReac Type Severity Reaction Status Date / Time azithromycin Allergy Swelling Verified 12/18/16 08:03 Physical Exam Vitals: Vital Signs Temp Pulse Pulse Resp BP BP Pulse Ox 12/18/16 15:00 96.5 F L 76 16 181/78 94 L 12/18/16 07:44 96 12/18/16 07:00 96.9 F L 78 20 154/75 96 12/18/16 02:45 96.9 F L 86 18 152/76 94 L 12/18/16 00:50 97.4 F L 80 18 171/74 94 L Intake and Output 12/18/16 12/18/16 12/18/16 06:59 14:59 22:59 Intake Total 560 Balance 560 Intake: IV 560 Sodium Chloride 0.9% 1, 560 000 ml @ 70 mls/hr IV . [id number] [facility] Rx#:[id number] Other: # Voids 2 3 Weight 77.111 kg - Constitutional General appearance: average body habitus, mild distress - EENT Eyes: anicteric sclerae, EOMI, PERRLA, no ptosis, no scleral icterus, normal appearance ENT: hard of hearing, normal oropharynx, no thrush, no tonsillar exudates, no tonsillar swelling Ears: bilateral: normal - Neck Neck: no lymphadenopathy, normal ROM, no rigidity, no stridor, no thyromegaly Carotids: bilateral: upstroke delayed Thyroid: bilateral: normal size - Respiratory Respiratory: bilateral: diminished, prolonged expiration, negative: dullness, rales, rhonchi, wheezing - Cardiovascular Rhythm: regular Heart sounds: normal: S1, S2 Abnormal Heart Sounds: systolic murmur, no rub, no click - Gastrointestinal General gastrointestinal: soft, no splenomegaly, no tenderness, no umbilical hernia, no ventral hernia - Integumentary Integumentary: normal, normal turgor - Neurologic Neurologic: CNII-XII intact - Musculoskeletal Musculoskeletal: gait normal, strength equal bilaterally - Psychiatric Psychiatric: A&O x's 3, appropriate affect, intact judgment & insight Results CBC & Chem 7: 12/17/16 20:25 12/17/16 20:25 Labs: Abnormal Lab Results - Last 24 Hours (Table) 12/18/16 12/18/16 12/18/16 Range/Units 02:02 07:29 12:04 POC Glucose (mg/dL) 134 H 251 H 311 H (75-99) mg/dL 12/18/16 Range/Units 17:06 POC Glucose (mg/dL) 307 H (75-99) mg/dL Thrombosis Risk Factor Assmnt - DVT/VTE Prophylaxis DVT/VTE Prophylaxis: Pharmacologic Prophylaxis ordered, Mechanical Prophylaxis ordered - Choose All That Apply Each Factor Represents 1 point: Abnormal pulmonary function (COPD) Each Risk Factor Represents 2 Points: Age 61-74 years, Malignancy Thrombosis Risk Factor Assessment Total Risk Factor Score: 5 Thrombosis Risk Factor Assessment Level: High Risk Assessment and Plan Plan: Assessment and plan: 1. Abdominal pain with possible PUD. will start Protonix 40 mg IVP daily and will consult Gastroenterology for possible EGD in AM. 2. Recent RML pneumonia with COPD exacerbation. will continue with Nebulized treatment,and discontinue Solu-Medrol. 3. Diabetes Mellitus type 2. will continue Lantus 70 units subcutaneously qhs and Humalog per SSI,BGM tid. 4. Hypertension. will continue with Atenolol 25 mg orally daily and Vasotec 5 mg orally daily. 5. Hyperlipidemia. low cholesterol diet. 6. Breast cancer post left lumpectomy.going for Radiation therapy next week. 7. Allergic Rhinitis. will continue with Flonase nasal spray bid. 8. DVT prophylaxis. continue with heparin 5000 units SC q 12 h. 9. GI prophylaxis. continue with PPI. 10. Full code.
[2016-12-19] MEDS: HYDROmorphone 1 MG/ML 1 ML SYRINGE IVP PRN (00:46)
[2016-12-19] MEDS: SODIUM CHLORIDE 0.9% 1,000 ML IV SCH ×2 (06:10→21:12)
[2016-12-19 07:24] LABS: Glucose,Whole Blood 228 mg/dL (75-99)
[2016-12-19] MEDS: predniSONE 10 MG TAB PO SCH (08:18)
[2016-12-19] MEDS: ISOSORBIDE MONONITRATE ER 30 MG TAB.ER.24H PO SCH (08:19)
[2016-12-19] MEDS: PANTOPRAZOLE 40 MG/10 ML VIAL IV SCH ×3 (08:19→21:14)
[2016-12-19] MEDS: LISINOPRIL 10 MG TAB PO SCH (08:19)
[2016-12-19] MEDS: ATENOLOL 25 MG TAB PO SCH ×2 (08:19)
[2016-12-19] MEDS: INSULIN LISPRO (humaLOG) 300 UNIT/3 ML VIAL SQ SCH ×3 (08:20→21:14)
[2016-12-19 09:51] LABS: Basophils # (A) 0.1 k/uL (0-0.2); Basophils % (A) 0 %; CH 28.2; CHCM 31.5; Eosinophils # (A) 0.1 k/uL (0-0.7); Eosinophils % (A) 0 %; HCT 46.3 % (34.0-46.0); HDW 2.52; HGB 14.1 gm/dL (11.4-16.0); Luc # (Auto) 0.03; Luc % (Auto) 0; Lymphocytes # (A) 0.9 k/uL (1.0-4.8); Lymphocytes % (A) 4 %; MCH 27.4 pg (25.0-35.0); MCHC 30.5 g/dL (31.0-37.0); MCV 89.9 fL (80.0-100.0); Mean Platelet Volume 8.6; Monocytes # (A) 0.3 k/uL (0-1.0); Monocytes % (A) 1 %; Neutrophils # (A) 20.1 k/uL (1.3-7.7); Neutrophils % (A) 94 %; RBC 5.15 m/uL (3.80-5.40); RDW 13.7 % (11.5-15.5); WBC 21.4 k/uL (3.8-10.6); WBC (Perox) 22.83
[2016-12-19 10:12] LABS: ALT 51 U/L (9-52); AST 22 U/L (14-36); Alkaline Phosphatase 83 U/L (38-126); Anion Gap 11 mmol/L; Blood Urea Nitrogen 26 mg/dL (7-17); Calcium 8.7 mg/dL (8.4-10.2); Carbon Dioxide 28 mmol/L (22-30); Chloride 96 mmol/L (98-107); Glucose 368 mg/dL (74-99); Non-African American GFR(MDRD) >60 (>60 ml/min/1.73 sqM); Potassium 5.2 mmol/L (3.5-5.1); Sodium 135 mmol/L (137-145); Total Bilirubin 0.6 mg/dL (0.2-1.3); Total Protein 5.8 g/dL (6.3-8.2)
[2016-12-19 10:15] LABS: Creatine Kinase MB 1.7 ng/mL (0.0-2.4); Troponin I <0.012 ng/mL (0.000-0.034)
--- NOTE | 2016-12-19 10:47 | P.CONS ---
History of Present Illness - Reason for Consult Consult date: 12/19/16 Epigastric pain Requesting physician: Rene Comer - History of Present Illness 71-year-old female patient Dr. Tyrell Woodruff past medical history recent diagnosis of breast cancer status post biopsy 2-3 weeks ago, hypertension, IDDM , abdominal aneurysm, CAD, and hard of hearing. Recently hospitalized for pneumonia and discharged 6 days ago. Readmitted with severe epigastric pain nausea vomiting without hematemesis, hematochezia, melena, or fever. No history of this type of pain. No history of EGD. No history of GERD. Pain is located along the mid sternum radiating down to the mid epigastric region. White count 15.2 increase to 21.4 this morning. Hemoglobin 14.1. Platelet 215. INR 1.1. Glucose 368. LFTs total bilirubin within normal limits. Lipase 63. Troponin less than 0.012. 12/17/2016 chest x-ray reported no active cardiopulmonary disease no change compared to old exam. 12/17/2016 abdominal x-rays done acute abdomen. No change. 12/09/2016 CTA negative for pulmonary embolism. Receiving oral steroids and baby aspirin. She is refusing intravenous Protonix and pain medications. She is making comments about going home today "I'll just deal with this at home". Review of Systems Constitutional: Denies fever, chills, sweats, weight gain, or loss. HEENT: Hard of hearing. Negative for migraines, blurred vision or loss, earaches, drainage, tinnitus, oral mucosal lesions, dysphagia, or odynophagia. CARDIAC: CAD. Hypertension. Hyperplastic colostomy. Negative for chest pain, arrhythmias, or palpitation. RESPIRATORY: Negative for shortness of breath, hemoptysis, cough, or sputum production. GI: See HPI for pertinent findings. : Negative for hematuria, urgency, frequency, polyuria, or dysuria. GYNc: Breast cancer. Denies possibility of . Negative vaginal discharge. MUSCULOSKELETAL: Negative for muscle aches, swelling, arthritis, and arthralgias. NEUROLOGIC: Negative for stroke or TIA. ENDOCRINE: IDDM. Negative for thyroid problems. SKIN: Negative for rash or itching. PSYCHIATRIC: Negative history for depression and anxiety All systems: negative (See HPI) Past Medical History Past Medical History: Cancer, Diabetes Mellitus, GERD/Reflux, Hearing Disorder / Deafness, Hyperlipidemia, Hypertension, Osteoarthritis (OA), Vascular Disorder Additional Past Medical History / Comment(s): KIDNEY STONES, NEW BREAST CA/ RADIATION TO START FIRST WEEK IN DEC-2016 History of Any Multi-Drug Resistant Organisms: None Reported Past Surgical History: Section, Hysterectomy Additional Past Surgical History / Comment(s): LEFT BREAST BIOPSY R/T POSITIVE MAMMOGRAM. Past Anesthesia/Blood Transfusion Reactions: No Reported Reaction Past Psychological History: No Psychological Hx Reported Smoking Status: Former smoker Past Alcohol Use History: None Reported Past Drug Use History: None Reported - Past Family History Brother(s) Family Medical History: Congestive Heart Failure (CHF), Myocardial Infarction ( [place]) (patient has 15 brothers and sisters 2 brothers from [place].) Mother Additional Family Medical History / Comment(s): BREAST CANCER WITH METS TO LIVER AND BODY Father Family Medical History: CVA/TIA (Father from CVA.) Daughter(s) Family Medical History: No Reported History (patient has 5 children one daughter with a pacemaker.) Medications and Allergies Home Medications Medication Instructions Recorded Confirmed Type Aspirin 81 mg PO DAILY 01/06/15 12/18/16 History Enalapril [Vasotec] 5 mg PO DAILY 01/06/15 12/18/16 History Isosorbide Mononitrate ER [Imdur] 30 mg PO DAILY 01/06/15 12/18/16 History Albuterol Inhaler [Ventolin Hfa 2 puff INHALATION RT-Q4H PRN 12/09/16 12/18/16 History Inhaler] Fluticasone Nasal [place] [Flonase 1 spr EA NOSTRIL DAILY PRN 12/09/16 12/18/16 History Nasal [place]] Insulin Aspart [NovoLOG] 20 unit SQ AC-TID MDD MAX 90UNITS 12/09/16 12/18/16 History TOTAL Insulin Aspart [NovoLOG] See Protocol SQ AC-TID MDD MAX 90 12/09/16 12/18/16 History UNITS TOTAL Insulin Glargine,Hum.rec.anlog 70 units SQ HS 12/09/16 12/18/16 History [Tonaz Solostkrishna] Atenolol 25 mg PO DAILY 12/18/16 12/18/16 History predniSONE See Taper PO DAILY 12/18/16 12/18/16 History Allergies Allergy/AdvReac Type Severity Reaction Status Date / Time azithromycin Allergy Swelling Verified 12/18/16 08:03 Physical Exam Vitals: Vital Signs Temp Pulse Resp BP Pulse Ox 12/19/16 07:00 96.8 F L 76 20 131/70 97 12/18/16 23:00 97.0 F L 77 16 156/68 98 12/18/16 15:00 96.5 F L 76 16 181/78 94 L Intake and Output 12/18/16 12/19/16 12/19/16 22:59 06:59 14:59 Intake Total 240 Balance 240 Intake: Oral 240 Other: # Voids 1 1 General appearance: The patient is alert, oriented, in no acute distress. HET: Head is normocephalic and atraumatic. Pupils are equal and reactive. Oropharynx is clear without lesions. Neck: Supple without lymphadenopathy. Trachea midline. Heart: S1 S2. Regular rate and rhythm. Lungs: No crackles or wheezes are heard. Abdomen: Soft, very mild midepigastric tenderness, nondistended with bowel sounds. No peritoneal signs. No palpable organomegaly or masses. Extremities: Normal skin color and turgor. No cyanosis, rash, ulceration, clubbing, or edema. Radial and pedal pulses are 2/4 bilaterally. Neurological: No focal deficits. Strength and sensation are grossly intact. Results CBC & Chem 7: 12/19/16 09:21 12/19/16 09:21 Labs: Abnormal Lab Results - Last 24 Hours (Table) 12/18/16 12/18/16 12/18/16 Range/Units 12:04 17:06 21:07 WBC (3.8-10.6) k/uL Hct (34.0-46.0) % MCHC (31.0-37.0) g/dL Neutrophils # (1.3-7.7) k/uL Lymphocytes # (1.0-4.8) k/uL Sodium (137-145) mmol/L Potassium (3.5-5.1) mmol/L Chloride (98-107) mmol/L BUN (7-17) mg/dL Glucose (74-99) mg/dL POC Glucose (mg/dL) 311 H 307 H 297 H (75-99) mg/dL Total Protein (6.3-8.2) g/dL Albumin (3.5-5.0) g/dL 12/19/16 12/19/16 12/19/16 Range/Units 07:05 09:21 09:21 WBC 21.4 H (3.8-10.6) k/uL Hct 46.3 H (34.0-46.0) % MCHC 30.5 L (31.0-37.0) g/dL Neutrophils # 20.1 H (1.3-7.7) k/uL Lymphocytes # 0.9 L (1.0-4.8) k/uL Sodium 135 L (137-145) mmol/L Potassium 5.2 H (3.5-5.1) mmol/L Chloride 96 L (98-107) mmol/L BUN 26 H (7-17) mg/dL Glucose 368 H (74-99) mg/dL POC Glucose (mg/dL) 228 H (75-99) mg/dL Total Protein 5.8 L (6.3-8.2) g/dL Albumin 3.2 L (3.5-5.0) g/dL Chest x-ray: report reviewed (Reviewed by Dr. Ding) Abdominal x-ray: report reviewed Assessment and Plan (1) Epigastric pain Narrative/Plan: 71-year-old female with a recent breast cancer diagnosis and recent hospitalization for pneumonia admitted with 5 day history of intractable nausea vomiting and midepigastric midsternal chest pain with leukocytosis suspect GERD possible peptic ulcer disease, however other pathology cannot be entirely excluded. Status: Acute Plan: Recommendations: 1. Patient was advised to take intravenous Protonix as directed as it is recommended for treatment of her epigastric pain. Patient was also encouraged take her pain medications. We'll proceed with an EGD evaluation in the am. Nothing by mouth except medications after midnight. May have clears as tolerated. We'll follow with you. The senior cognos developer has discussed the risks, benefits and alternative therapies for the above-mentioned procedure and for both sedation/analgesia as well as necessary blood product administration, if indicated, as they pertain to this patient. The patient has indicated understanding and acceptance of the risks and procedures discussed. Thank you for this kind referral and the opportunity to participate in the care of your patient. This consultation was discussed with Dr. Ding. The impression and plan of care have been directed as dictated.
[2016-12-19] MEDS ORDERED: RX INFO: IV CONTRAST WAS GIVEN 1 EACH MISC MISCELLANE PRN (11:35)
[2016-12-19 12:10] LABS: Amylase 34 U/L (30-110); LDH 375 U/L (313-618)
[2016-12-19 12:18] LABS: Glucose,Whole Blood 227 mg/dL (75-99)
[2016-12-19] MEDS: IOHEXOL 350 MG/ML 25 ML BOTTLE (ORAL USE) PO PRN ×2 (12:31→13:32)
--- NOTE | 2016-12-19 14:07 | P.GSCN ---
History of Present Illness Consult date: 12/19/16 Reason for Consult: Abdominal pain History of present illness: Patient came to the hospital for epigastric abdominal pain. She was recently hospitalized with pneumonia. She was started on IV steroids during this hospital stay for an exacerbation of COPD. Her white blood cell count is elevated today. She is afebrile. Abdominal x-rays performed 48 hours ago showed no pneumoperitoneum. She is scheduled for an upper endoscopy by GI. Denies any rectal bleeding or melena. We are asked to see this patient for evaluation of her abdomen pain. Review of Systems The patient denies any acute changes in his vision or hearing, no dysphagia or odynophagia, no chest pain, no dysuria or hematuria, no headache, no runny nose , no rectal bleeding or melena, no unexplained weight loss Past Medical History Past Medical History: Cancer, Diabetes Mellitus, GERD/Reflux, Hearing Disorder / Deafness, Hyperlipidemia, Hypertension, Osteoarthritis (OA), Vascular Disorder Additional Past Medical History / Comment(s): KIDNEY STONES, NEW BREAST CA/ RADIATION TO START FIRST WEEK IN DEC-2016 History of Any Multi-Drug Resistant Organisms: None Reported Past Surgical History: Section, Hysterectomy Additional Past Surgical History / Comment(s): LEFT BREAST BIOPSY R/T POSITIVE MAMMOGRAM. Past Anesthesia/Blood Transfusion Reactions: No Reported Reaction Past Psychological History: No Psychological Hx Reported Smoking Status: Former smoker Past Alcohol Use History: None Reported Past Drug Use History: None Reported - Past Family History Brother(s) Family Medical History: Congestive Heart Failure (CHF), Myocardial Infarction ( [place]) (patient has 15 brothers and sisters 2 brothers from [place].) Mother Additional Family Medical History / Comment(s): BREAST CANCER WITH METS TO LIVER AND BODY Father Family Medical History: CVA/TIA (Father from CVA.) Daughter(s) Family Medical History: No Reported History (patient has 5 children one daughter with a pacemaker.) Medications and Allergies Home Medications Medication Instructions Recorded Confirmed Type Aspirin 81 mg PO DAILY 01/06/15 12/18/16 History Enalapril [Vasotec] 5 mg PO DAILY 01/06/15 12/18/16 History Isosorbide Mononitrate ER [Imdur] 30 mg PO DAILY 01/06/15 12/18/16 History Albuterol Inhaler [Ventolin Hfa 2 puff INHALATION RT-Q4H PRN 12/09/16 12/18/16 History Inhaler] Fluticasone Nasal [place] [Flonase 1 spr EA NOSTRIL DAILY PRN 12/09/16 12/18/16 History Nasal [place]] Insulin Aspart [NovoLOG] 20 unit SQ AC-TID MDD MAX 90UNITS 12/09/16 12/18/16 History TOTAL Insulin Aspart [NovoLOG] See Protocol SQ AC-TID MDD MAX 90 12/09/16 12/18/16 History UNITS TOTAL Insulin Glargine,Hum.rec.anlog 70 units SQ HS 12/09/16 12/18/16 History [[place] Solostar] Atenolol 25 mg PO DAILY 12/18/16 12/18/16 History predniSONE See Taper PO DAILY 12/18/16 12/18/16 History Allergies Allergy/AdvReac Type Severity Reaction Status Date / Time azithromycin Allergy Swelling Verified 12/18/16 08:03 Surgical - Exam Vital Signs Temp Pulse Resp BP Pulse Ox 97.8 F 87 20 198/84 94 L 12/17/16 20:07 12/17/16 20:07 12/17/16 20:07 12/17/16 20:07 12/17/16 20:07 Physical exam: General: Well-developed, well-nourished HEENT: Normocephalic, sclerae nonicteric Abdomen: Mild epigastric tenderness, nondistended Extremities: No edema Neuro: Alert and oriented Results - Labs 12/19/16 09:21 12/19/16 09:21 Abnormal Lab Results - Last 24 Hours (Table) 12/18/16 12/18/16 12/19/16 Range/Units 17:06 21:07 07:05 WBC (3.8-10.6) k/uL Hct (34.0-46.0) % MCHC (31.0-37.0) g/dL Neutrophils # (1.3-7.7) k/uL Lymphocytes # (1.0-4.8) k/uL Sodium (137-145) mmol/L Potassium (3.5-5.1) mmol/L Chloride (98-107) mmol/L BUN (7-17) mg/dL Glucose (74-99) mg/dL POC Glucose (mg/dL) 307 H 297 H 228 H (75-99) mg/dL Total Protein (6.3-8.2) g/dL Albumin (3.5-5.0) g/dL 12/19/16 12/19/16 12/19/16 Range/Units 09:21 09:21 12:16 WBC 21.4 H (3.8-10.6) k/uL Hct 46.3 H (34.0-46.0) % MCHC 30.5 L (31.0-37.0) g/dL Neutrophils # 20.1 H (1.3-7.7) k/uL Lymphocytes # 0.9 L (1.0-4.8) k/uL Sodium 135 L (137-145) mmol/L Potassium 5.2 H (3.5-5.1) mmol/L Chloride 96 L (98-107) mmol/L BUN 26 H (7-17) mg/dL Glucose 368 H (74-99) mg/dL POC Glucose (mg/dL) 227 H (75-99) mg/dL Total Protein 5.8 L (6.3-8.2) g/dL Albumin 3.2 L (3.5-5.0) g/dL Diabetes panel 12/19/16 Range/Units 09:21 Sodium 135 L (137-145) mmol/L Potassium 5.2 H (3.5-5.1) mmol/L Chloride 96 L (98-107) mmol/L Carbon Dioxide 28 (22-30) mmol/L BUN 26 H (7-17) mg/dL Creatinine 0.85 (0.52-1.04) mg/dL Glucose 368 H (74-99) mg/dL Calcium 8.7 (8.4-10.2) mg/dL AST 22 (14-36) U/L ALT 51 (9-52) U/L Alkaline Phosphatase 83 (38-126) U/L Total Protein 5.8 L (6.3-8.2) g/dL Albumin 3.2 L (3.5-5.0) g/dL Calcium panel 12/19/16 Range/Units 09:21 Calcium 8.7 (8.4-10.2) mg/dL Albumin 3.2 L (3.5-5.0) g/dL Pituitary panel 12/19/16 Range/Units 09:21 Sodium 135 L (137-145) mmol/L Potassium 5.2 H (3.5-5.1) mmol/L Chloride 96 L (98-107) mmol/L Carbon Dioxide 28 (22-30) mmol/L BUN 26 H (7-17) mg/dL Creatinine 0.85 (0.52-1.04) mg/dL Glucose 368 H (74-99) mg/dL Calcium 8.7 (8.4-10.2) mg/dL Adrenal panel 12/19/16 Range/Units 09:21 Sodium 135 L (137-145) mmol/L Potassium 5.2 H (3.5-5.1) mmol/L Chloride 96 L (98-107) mmol/L Carbon Dioxide 28 (22-30) mmol/L BUN 26 H (7-17) mg/dL Creatinine 0.85 (0.52-1.04) mg/dL Glucose 368 H (74-99) mg/dL Calcium 8.7 (8.4-10.2) mg/dL Total Bilirubin 0.6 (0.2-1.3) mg/dL AST 22 (14-36) U/L ALT 51 (9-52) U/L Alkaline Phosphatase 83 (38-126) U/L Total Protein 5.8 L (6.3-8.2) g/dL Albumin 3.2 L (3.5-5.0) g/dL Assessment and Plan (1) Epigastric pain Narrative/Plan: Will check CAT scan abdomen and pelvis. Agree with proceeding with upper endoscopy. Continue antiacids. Status: Acute
--- NOTE | 2016-12-19 14:49 | CT ---
EXAMINATION TYPE: CT abdomen pelvis w con DATE OF EXAM: 12/19/2016 2:34 PM COMPARISON: NONE HISTORY: pain CT DLP: 501.2 mGycm Automated exposure control for dose reduction was used. CONTRAST: CT scan of the abdomen pelvis is performed with IV Contrast, patient injected with 100 ml mL of Omnip aque 300. FINDINGS- LUNG BASES-focal area of consolidation along the right heart border. LIVER/GB- No gross abnormality is appreciated. PANCREAS- No gross abnormality is seen. SPLEEN-and tiny area of enhancement within the spleen could represent a tiny flash angioma. Measures 3 mm. ADRENALS- No gross abnormality is seen. KIDNEYS/BLADDER-there are 2 right renal calculi measuring less than 5 mm with no hydronephrosis. Ther e is a calculus involving the posterior mid pole infundibulum and calyx extending a length of 1 cm wi thin the left kidney. No hydronephrosis. BOWEL- no bowel dilatation. Normal appendix. Diverticulosis of the colon with no CT evidence of div erticulitis. LYMPH NODES- No greater than 1cm abdominal or pelvic lymph nodes are appreciated. OSSEOUS STRUCTURES-facet arthropathy and degenerative change of the spine. Small hiatal hernia noted. OTHER- there is a 3.8 x 3.8 cm infrarenal abdominal aortic aneurysm which extends to the aortic bifu rcation. There appears to be variant anatomy with a common origin of the celiac axis and SMA with sev ere stenosis suspected at its origin. IMPRESSION- 1. And there is a 3.8 x 3.8 cm infrarenal abdominal aortic aneurysm which extends to the aortic bifur cation. There appears to be variant anatomy with a common origin of the celiac axis and SMA with pal re stenosis suspected at its origin. Correlate for mesenteric symptoms. Patient would seem at risk fo r development of mesenteric ischemia. 2. Diverticulosis of the colon with no CT evidence of diverticulitis. 3. Bilateral nephrolithiasis with no evidence of hydronephrosis.
--- NOTE | 2016-12-19 14:58 | P.PN ---
Subjective This is a 71 year-Old female with a previous medical history significant for hypertension and hypertensive cardiovascular disease, hyperlipidemia,diabetes mellitus type 2, abdominal aortic aneurysm , carotid artery disease, was recently hospitalized at [facility] for right middle lobe pneumonia and COPD exacerbation and was recently discharged few days ago ,patient stated that she was doing fine till fe wdays ago when she developed to have increased abdominal pain located in the epigastric area with her pain described as sharp pain located in the epigastric area radiating to her back so she ended up coming to the ER at [facility] for evaluation and was given solumedrol 125 mg IVP and was admitted for further evaluation. Patient is sitting up in bed in no acute distress and she will be seen by Gastroenterology for possible PUD and will be started on protonix 40 mg IVP daily. 12/19: patient continues to have sharp pain in the epigastric area. She is refusing pain medications as she states it doesn't last. Consult with Dr. Brizuela added. endoscopy is scheduled for today with Dr. Ding. CAT scan of the abdomen and pelvis with contrast has been ordered. Objective - Vital Signs Vital signs: Vital Signs Temp 96.8 F L 12/19/16 07:00 Pulse 76 12/19/16 07:00 Resp 20 12/19/16 07:00 BP 131/70 12/19/16 07:00 Pulse Ox 97 12/19/16 07:00 Intake & Output 12/18/16 12/19/16 12/19/16 18:59 06:59 18:59 Intake Total 240 Balance 240 Intake: Oral 240 Other: # Voids 3 1 - Exam General appearance: average body habitus, mild distress - EENT Eyes: anicteric sclerae, EOMI, PERRLA, no ptosis, no scleral icterus, normal appearance ENT: hard of hearing, normal oropharynx, no thrush, no tonsillar exudates, no tonsillar swelling Ears: bilateral: normal - Neck Neck: no lymphadenopathy, normal ROM, no rigidity, no stridor, no thyromegaly Carotids: bilateral: upstroke delayed Thyroid: bilateral: normal size - Respiratory Respiratory: bilateral: diminished, prolonged expiration, negative: dullness, rales, rhonchi, wheezing - Cardiovascular Rhythm: regular Heart sounds: normal: S1, S2 Abnormal Heart Sounds: systolic murmur, no rub, no click - Gastrointestinal General gastrointestinal: soft, no splenomegaly, no tenderness, no umbilical hernia, no ventral hernia - Integumentary Integumentary: normal, normal turgor - Neurologic Neurologic: CNII-XII intact - Musculoskeletal Musculoskeletal: gait normal, strength equal bilaterally - Psychiatric Psychiatric: A&O x's 3, appropriate affect, intact judgment & insight - Labs CBC & Chem 7: 12/19/16 09:21 12/19/16 09:21 Labs: Abnormal Lab Results - Last 24 Hours (Table) 12/18/16 12/18/16 12/18/16 Range/Units 12:04 17:06 21:07 WBC (3.8-10.6) k/uL Hct (34.0-46.0) % MCHC (31.0-37.0) g/dL Neutrophils # (1.3-7.7) k/uL Lymphocytes # (1.0-4.8) k/uL Sodium (137-145) mmol/L Potassium (3.5-5.1) mmol/L Chloride (98-107) mmol/L BUN (7-17) mg/dL Glucose (74-99) mg/dL POC Glucose (mg/dL) 311 H 307 H 297 H (75-99) mg/dL Total Protein (6.3-8.2) g/dL Albumin (3.5-5.0) g/dL 12/19/16 12/19/16 12/19/16 Range/Units 07:05 09:21 09:21 WBC 21.4 H (3.8-10.6) k/uL Hct 46.3 H (34.0-46.0) % MCHC 30.5 L (31.0-37.0) g/dL Neutrophils # 20.1 H (1.3-7.7) k/uL Lymphocytes # 0.9 L (1.0-4.8) k/uL Sodium 135 L (137-145) mmol/L Potassium 5.2 H (3.5-5.1) mmol/L Chloride 96 L (98-107) mmol/L BUN 26 H (7-17) mg/dL Glucose 368 H (74-99) mg/dL POC Glucose (mg/dL) 228 H (75-99) mg/dL Total Protein 5.8 L (6.3-8.2) g/dL Albumin 3.2 L (3.5-5.0) g/dL Assessment and Plan Plan: 1. Abdominal pain with possible PUD. will start Protonix 40 mg IVP daily and will consult Gastroenterology for possible EGD in AM.consult with Dr. Brizuela added. CAT scan of the abdomen and pelvis ordered. 2. Recent RML pneumonia with COPD exacerbation. will continue with Nebulized treatment,and discontinue Solu-Medrol. 3. Diabetes Mellitus type 2. will continue Lantus 70 units subcutaneously qhs and Humalog per SSI,BGM tid. 4. Hypertension. will continue with Atenolol 25 mg orally daily and Vasotec 5 mg orally daily. 5. Hyperlipidemia. low cholesterol diet. 6. Breast cancer post left lumpectomy.going for Radiation therapy next week. 7. Allergic Rhinitis. will continue with Flonase nasal spray bid. 8. DVT prophylaxis. continue with heparin 5000 units SC q 12 h. 9. GI prophylaxis. continue with PPI. 10. Full code. discharge plan: Return home Impression and plan of care have been directed as dictated by the signing physician. Sanam Dow nurse practitioner acting as scribe for signing physician. Time with Patient: Greater than 30
[2016-12-19 17:40] LABS: Glucose,Whole Blood 158 mg/dL (75-99)
[2016-12-19] MEDS: ASPIRIN 81 MG CHEW PO SCH (18:01)
[2016-12-19 21:14] LABS: Glucose,Whole Blood 146 mg/dL (75-99)
[2016-12-19] MEDS: INSULIN GLARGINE 100 UNIT/ML 10 ML VIAL SQ SCH (21:14)
[2016-12-20 07:53] LABS: Glucose,Whole Blood 80 mg/dL (75-99)
[2016-12-20] MEDS ORDERED: DEXTROSE 50%-WATER 50 ML SYRINGE IVP STA (07:59)
[2016-12-20] MEDS ORDERED: DEXTROSE 50%-WATER 50 ML SYRINGE IVP ONE (08:00)
[2016-12-20] MEDS: INSULIN LISPRO (humaLOG) 300 UNIT/3 ML VIAL SQ SCH ×4 (08:03→20:50)
[2016-12-20] MEDS ORDERED: PROPOFOL 10 MG/ML 20 ML VIAL IV ONE (08:42)
[2016-12-20] MEDS ORDERED: IV FLUID CONTINUATION 1,000 ML IV ONE (08:49)
--- NOTE | 2016-12-20 08:57 | P.PCN ---
Date of Procedure: 12/20/16 Implants: BRIEF HISTORY: Patient is a 71-year-old, pleasant, white female, scheduled for an upper endoscopy as a part of evaluation of acute onset of severe midepigastric lower sternal chest pain for the last 2 days' duration. She had CT abdomen and pelvis that showed stenosis in the origin of SMA/celiac artery but otherwise unremarkable. She never had these symptoms in the past. Recently was in the hospital with pneumonia and treated with antibiotics and steroids. Because of the symptoms she is scheduled for an upper endoscopy to evaluate further. PROCEDURE PERFORMED: Esophagogastroduodenoscopy with biopsy. PREOPERATIVE DIAGNOSIS: Severe epigastric pain. IV sedation per anesthesia. PROCEDURE: After informed consent was obtained, the patient was brought into the endoscopy unit. IV conscious sedation was administered by Anesthesia under continuous monitoring. Initially the Olympus GIF-140 video endoscope was inserted into the mouth. Esophagus intubated without any difficulty. It was gradually advanced into the stomach and duodenum and carefully examined. The bulb and the second part of the duodenum appeared normal. The scope at this time was withdrawn to the stomach, adequately insufflated with air, and upon careful examination, mucosa of the antrum, had mild gastritis and biopsies were done from this area. The body, cardia and the fundus appeared normal. The scope was then withdrawn into the esophagus. The GE junction was located at 39 cm from the incisors. The esophagus appeared normal. There were no erosions or ulcerations seen and the patient tolerated the procedure well. IMPRESSION: 1. Mild antral gastritis. 2. No evidence of esophagitis or peptic ulcer disease. RECOMMENDATIONS: The findings of this examination were discussed with the patient as well as her family. At this time will obtain ultrasound of the gallbladder to rule out any gallstones. She will be started on soft diet and continued on Protonix 40 mg daily
[2016-12-20] MEDS: ASPIRIN 81 MG CHEW PO SCH (10:51)
[2016-12-20] MEDS: ISOSORBIDE MONONITRATE ER 30 MG TAB.ER.24H PO SCH (10:51)
[2016-12-20] MEDS: ATENOLOL 25 MG TAB PO SCH (10:51)
[2016-12-20] MEDS: PANTOPRAZOLE 40 MG/10 ML VIAL IV SCH ×2 (10:51→20:07)
[2016-12-20] MEDS: LISINOPRIL 10 MG TAB PO SCH (10:51)
[2016-12-20] MEDS: predniSONE 10 MG TAB PO SCH (10:52)
[2016-12-20] MEDS: SODIUM CHLORIDE 0.9% 1,000 ML IV SCH ×2 (10:52→23:53)
[2016-12-20 11:02] LABS: Glucose,Whole Blood 81 mg/dL (75-99)
--- NOTE | 2016-12-20 11:31 | US ---
EXAMINATION TYPE: US gallbladder DATE OF EXAM: 12/20/2016 10:37 AM COMPARISON: 12/19/16 CT in pacs CLINICAL HISTORY: severe epi pain. Abdomen pain and N/V x 5 days EXAM MEASUREMENTS: Liver Length: 14.6 cm Gallbladder Wall: 0.3 cm CBD: 0.3 cm Right Kidney: 11.2 x 4.3 x 5.2 cm TECHNOLOGIST IMPRESSION: Pancreas: visualized portions wnl, head and tail limited by overlying bowel gas Liver: slightly heterogeneous echotexture Gallbladder: multiple tiny echogenic foci along posterior wall with largest measuring 0.5cm Evidence for sonographic Olivarez's sign: no CBD: visualized portions wnl, limited by overlying bowel gas Right Kidney: multiple tiny echogenic foci mid pole with largest measuring 0.6cm IMPRESSION: 1. Poor visualization of the pancreas. 2. Cholelithiasis. 3. Echogenic foci within the kidney may be vascular in nature.
[2016-12-20 11:33] LABS: Glucose,Whole Blood 99 mg/dL (75-99)
--- NOTE | 2016-12-20 12:02 | P.PN ---
Subjective Principal diagnosis: Abdominal pain Patient had her CAT scan performed yesterday which showed no etiology for her epigastric pain. Her upper endoscopy this morning likewise was fairly unimpressive. Her pain is improved. An ultrasound showed multiple gallstones. Denies nausea vomiting. She is afebrile. Objective - Vital Signs Vital signs: Vital Signs Temp 97.4 F L 12/20/16 07:00 Pulse 62 12/20/16 07:00 Resp 16 12/20/16 07:00 BP 161/70 12/20/16 07:00 Pulse Ox 98 12/20/16 07:00 Intake & Output 12/19/16 12/20/16 12/20/16 18:59 06:59 18:59 Intake Total 590 400 100 Balance 590 400 100 Intake: IV 350 100 Sodium Chloride 0.9% 1, 350 000 ml @ 70 mls/hr IV . [id number] ALEKSEY Rx#:[id number] Oral 240 400 Other: # Voids 1 - Exam Abdomen: Soft, nondistended, minimal epigastric tenderness - Labs CBC & Chem 7: 12/19/16 09:21 12/19/16 09:21 Labs: Abnormal Lab Results - Last 24 Hours (Table) 12/19/16 12/19/16 12/19/16 Range/Units 12:16 17:11 20:53 POC Glucose (mg/dL) 227 H 158 H 146 H (75-99) mg/dL Assessment and Plan (1) Epigastric pain Narrative/Plan: Patient's pain may likely be on the basis of symptomatic cholelithiasis. Her enzymes were elevated 2 days ago. We will repeat her CMP tomorrow. Tentatively we'll plan laparoscopic cholecystectomy tomorrow. The risks of bleeding, infection, biloma, bile duct injury, persistent pain, diarrhea, conversion to an open procedure were discussed. She and her family understand and wish to proceed. Status: Acute
[2016-12-20] MEDS: LEVOFLOXACIN 750 MG TAB PO SCH (13:51)
--- NOTE | 2016-12-20 16:43 | P.PN ---
Subjective This is a 71 year-Old female with a previous medical history significant for hypertension and hypertensive cardiovascular disease, hyperlipidemia,diabetes mellitus type 2, abdominal aortic aneurysm , carotid artery disease, was recently hospitalized at [facility] for right middle lobe pneumonia and COPD exacerbation and was recently discharged few days ago ,patient stated that she was doing fine till fe wdays ago when she developed to have increased abdominal pain located in the epigastric area with her pain described as sharp pain located in the epigastric area radiating to her back so she ended up coming to the ER at [facility] for evaluation and was given solumedrol 125 mg IVP and was admitted for further evaluation. Patient is sitting up in bed in no acute distress and she will be seen by Gastroenterology for possible PUD and will be started on protonix 40 mg IVP daily. 12/19: patient continues to have sharp pain in the epigastric area. She is refusing pain medications as she states it doesn't last. Consult with Dr. Brizuela added. endoscopy is scheduled for today with Dr. Ding. CAT scan of the abdomen and pelvis with contrast has been ordered. 12/20: CT of the abdomen and pelvis shows a 3.8 x 3.8 infrarenal abdominal aortic aneurysm which extends to the aortic bifurcation. There appears to be variant anatomy within the common origin of the celiac axis and SMA with severe stenosis suspected in this region. Correlate for mesenteric symptoms. Patient seems at risk for development of mesenteric ischemia. Diverticulosis of the colon with no diverticulitis. Bilateral nephrolithiasis with no evidence of hydronephrosis. Gallbladder ultrasound shows cholelithiasis, echogenic foci within the kidney may be vascular in nature. Dr. Brizuela has scheduled her for laparoscopic cholecystectomy tomorrow. Patient underwent EGD with biopsy this morning with Dr. Ding. Findings were of mild antral gastritis. No evidence of esophagitis or peptic ulcer disease. Patient started on a soft diet and continued on Protonix. Abdominal pain is improved today. Objective - Vital Signs Vital signs: Vital Signs Temp 97.4 F L 12/20/16 07:00 Pulse 62 12/20/16 07:00 Resp 16 12/20/16 07:00 BP 161/70 12/20/16 07:00 Pulse Ox 98 12/20/16 07:00 Intake & Output 12/19/16 12/20/16 12/20/16 18:59 06:59 18:59 Intake Total 590 400 100 Balance 590 400 100 Intake: IV 350 100 Sodium Chloride 0.9% 1, 350 000 ml @ 70 mls/hr IV . [id number] ALEKSEY Rx#:[id number] Oral 240 400 Other: # Voids 1 - Exam General appearance: average body habitus, mild distress - EENT Eyes: anicteric sclerae, EOMI, PERRLA, no ptosis, no scleral icterus, normal appearance ENT: hard of hearing, normal oropharynx, no thrush, no tonsillar exudates, no tonsillar swelling Ears: bilateral: normal - Neck Neck: no lymphadenopathy, normal ROM, no rigidity, no stridor, no thyromegaly Carotids: bilateral: upstroke delayed Thyroid: bilateral: normal size - Respiratory Respiratory: bilateral: diminished, prolonged expiration, negative: dullness, rales, rhonchi, wheezing - Cardiovascular Rhythm: regular Heart sounds: normal: S1, S2 Abnormal Heart Sounds: systolic murmur, no rub, no click - Gastrointestinal General gastrointestinal: soft, no splenomegaly, no tenderness, no umbilical hernia, no ventral hernia - Integumentary Integumentary: normal, normal turgor - Neurologic Neurologic: CNII-XII intact - Musculoskeletal Musculoskeletal: gait normal, strength equal bilaterally - Psychiatric Psychiatric: A&O x's 3, appropriate affect, intact judgment & insight - Labs CBC & Chem 7: 12/19/16 09:21 12/19/16 09:21 Labs: Abnormal Lab Results - Last 24 Hours (Table) 12/19/16 12/19/16 12/19/16 Range/Units 12:16 17:11 20:53 POC Glucose (mg/dL) 227 H 158 H 146 H (75-99) mg/dL Assessment and Plan Plan: 1. Abdominal pain secondarey to cholelithiasis status post EGD and scheduled for laparoscopic cholecystectomy tomorrow. 2. Recent RML pneumonia with COPD exacerbation. will continue with Nebulized treatment,and discontinue Solu-Medrol. 3. Diabetes Mellitus type 2. will continue Lantus 70 units subcutaneously qhs and Humalog per SSI,BGM tid. 4. Hypertension. will continue with Atenolol 25 mg orally daily and Vasotec 5 mg orally daily. 5. Hyperlipidemia. low cholesterol diet. 6. Breast cancer post left lumpectomy.going for Radiation therapy next week. 7. Allergic Rhinitis. will continue with Flonase nasal spray bid. 8. DVT prophylaxis. continue with heparin 5000 units SC q 12 h. 9. GI prophylaxis. continue with PPI. 10. Full code. discharge plan: Return home Impression and plan of care have been directed as dictated by the signing physician. Sanam Dow nurse practitioner acting as scribe for signing physician. Time with Patient: Greater than 30
[2016-12-20 17:11] LABS: Glucose,Whole Blood 193 mg/dL (75-99)
[2016-12-20] MEDS: INSULIN GLARGINE 100 UNIT/ML 10 ML VIAL SQ SCH (20:50)
[2016-12-20 20:59] LABS: Glucose,Whole Blood 221 mg/dL (75-99)
[2016-12-21 07:38] LABS: Glucose,Whole Blood 163 mg/dL (75-99)
[2016-12-21] MEDS: INSULIN LISPRO (humaLOG) 300 UNIT/3 ML VIAL SQ SCH ×4 (07:48→22:06)
[2016-12-21] MEDS: predniSONE 10 MG TAB PO SCH (08:01)
[2016-12-21] MEDS: LISINOPRIL 10 MG TAB PO SCH (08:01)
[2016-12-21] MEDS: PANTOPRAZOLE 40 MG/10 ML VIAL IV SCH ×2 (08:01→22:00)
[2016-12-21] MEDS: ASPIRIN 81 MG CHEW PO SCH (08:01)
[2016-12-21] MEDS: ATENOLOL 25 MG TAB PO SCH (08:01)
[2016-12-21] MEDS: ISOSORBIDE MONONITRATE ER 30 MG TAB.ER.24H PO SCH (08:01)
[2016-12-21 10:11] LABS: Basophils % (A) 0 %; CHCM 31.9; Eosinophils # (A) 0.2 k/uL (0-0.7); Eosinophils % (A) 2 %; HCT 45.4 % (34.0-46.0); HGB 14.6 gm/dL (11.4-16.0); Luc # (Auto) 0.09; Luc % (Auto) 1; Lymphocytes % (A) 22 %; MCH 28.2 pg (25.0-35.0); Mean Platelet Volume 7.8; Monocytes # (A) 0.5 k/uL (0-1.0); Monocytes % (A) 5 %; Neutrophils # (A) 6.6 k/uL (1.3-7.7); Neutrophils % (A) 70 %; RBC 5.16 m/uL (3.80-5.40); RDW 13.4 % (11.5-15.5); WBC 9.3 k/uL (3.8-10.6); WBC (Perox) 10.09
[2016-12-21 10:38] LABS: ALT 50 U/L (9-52); AST 28 U/L (14-36); Alkaline Phosphatase 96 U/L (38-126); Anion Gap 9 mmol/L; Blood Urea Nitrogen 20 mg/dL (7-17); Calcium 8.5 mg/dL (8.4-10.2); Carbon Dioxide 32 mmol/L (22-30); Chloride 97 mmol/L (98-107); Glucose 163 mg/dL (74-99); Non-African American GFR(MDRD) >60 (>60 ml/min/1.73 sqM); Potassium 4.1 mmol/L (3.5-5.1); Sodium 138 mmol/L (137-145); Total Bilirubin 0.6 mg/dL (0.2-1.3); Total Protein 5.5 g/dL (6.3-8.2)
[2016-12-21 12:01] LABS: Glucose,Whole Blood 222 mg/dL (75-99)
[2016-12-21] MEDS ORDERED: IV FLUID CONTINUATION 1,000 ML IV ONE (12:14)
[2016-12-21] MEDS ORDERED: INSULIN LISPRO (humaLOG) 300 UNIT/3 ML VIAL SQ ONE (12:19)
[2016-12-21] MEDS ORDERED: ONDANSETRON 4 MG/2 ML VIAL IVP ONE (12:29)
[2016-12-21] MEDS ORDERED: DEXAMETHASONE SOD PHOSPHATE 10 MG/ML 1 ML VIAL IV ONE (12:29)
[2016-12-21] MEDS ORDERED: SCOPOLAMINE 1.5MG/72HR PATCH TRANSDERM ONE (12:29)
[2016-12-21] MEDS ORDERED: HYDROCORTISONE SUCCINATE 100 MG/2 ML VIAL IV STA (12:35)
[2016-12-21] MEDS ORDERED: HEPARIN SODIUM,PORCINE 5,000 UNIT/ML 1 ML VIAL SQ ONE (12:44)
[2016-12-21] MEDS ORDERED: ROCURONIUM BROMIDE 10 MG/ML 10 ML VIAL IV ONE (12:46)
[2016-12-21] MEDS ORDERED: fentaNYL (PF) 50 MCG/ML 2 ML AMP ONE (12:46)
[2016-12-21] MEDS ORDERED: SUCCINYLCHOLINE CHLORIDE 100 MG/5 ML SYR IV ONE (12:46)
[2016-12-21] MEDS ORDERED: MIDAZOLAM 2 MG/2 ML VIAL ONE (12:46)
[2016-12-21] MEDS ORDERED: HYDROmorphone (PF) 1 MG/ML ONE (12:46)
[2016-12-21] MEDS ORDERED: PROPOFOL 10 MG/ML 20 ML VIAL IV ONE (12:46)
[2016-12-21] MEDS ORDERED: LIDOCAINE 1% INJ 10MG/ML (20 ML MDV) ONE (12:46)
[2016-12-21] MEDS ORDERED: GLYCOPYRROLATE 0.2 MG/ML 2 ML VIAL ONE (12:46)
[2016-12-21] MEDS ORDERED: NEOSTIGMINE 1 MG/ML 10 ML VIAL ONE (12:46)
[2016-12-21] MEDS ORDERED: SODIUM CHLORIDE 0.9% 100 ML with ceFAZolin 2,000 MG IV ONE ×2 (13:04)
[2016-12-21] MEDS ORDERED: BUPIVACAIN-EPI 0.25%-1:200,000 30 ML VIAL SQ ONE ×2 (13:17)
[2016-12-21] MEDS ORDERED: LACTATED RINGERS 1,000 ML IV ONE ×2 (13:30)
[2016-12-21] MEDS ORDERED: HYDROcodone/APAP 5-325MG 1 EACH TAB PO PRN (13:44)
--- NOTE | 2016-12-21 13:45 | P.PCN ---
Date of Procedure: 12/21/16 Procedure(s) Performed: PREOPERATIVE DIAGNOSIS: Acute cholecystitis POSTOPERATIVE DIAGNOSIS: Same PROCEDURE: Laparoscopic cholecystectomy SURGEON: Gelacio EBL: Minimal see anesthesia record ANESTHESIA: Gen. COMPLICATIONS: None OPERATIVE PROCEDURE: The patient was brought and placed on the operating room table in the supine position. The patient was placed under general anesthesia at that time. The abdomen was prepped and draped in the usual sterile fashion. A small curvilinear supraumbilical incision was made. The fascia was grasped with the Cyndy forceps. The fascia was retracted anteriorly. The Veress needle was advanced into the peritoneal cavity. The saline drop test was normal. Insufflation took place up to 15 mmHg. A 5 mm optical trocar was advanced and the peritoneal cavity. 2 additional 5 mm trochars were placed in the right upper quadrant under direct visualization. A 10 mm trocar was advanced into the epigastric incision site. The gallbladder was retracted superiorly and laterally. The peritoneum overlying the infundibulum was bluntly dissected. The patient's cystic duct was visualized. The junction between the cystic duct common and hepatic duct was identified. The cystic duct was then divided after placement of 3 10 mm clips on the patient's side and one on the specimen side. The cystic artery was identified and clipped as well. A small vessel was seen along the gallbladder fossa and clipped as well. The gallbladder was then removed from the liver bed using electrocautery. The gallbladder was then removed from the epigastric trocar site with an Endo Catch bag. The gallbladder fossa was irrigated with saline. There was no evidence of any bleeding or biliary drainage seen. The trochars were then removed. The fascia at the 10 millimeter site was closed using a figure-of- eight 0 Vicryl stitch. The skin at all 4 sites was closed using a 4-0 Monocryl stitch. At the end of this procedure the sponge and needle counts were correct. DISPOSITION: Stable to the recovery room
[2016-12-21 14:06] LABS: Glucose,Whole Blood 217 mg/dL (75-99)
[2016-12-21] MEDS: SODIUM CHLORIDE 0.9% 1,000 ML IV SCH (14:45)
[2016-12-21 17:14] LABS: Glucose,Whole Blood 284 mg/dL (75-99)
[2016-12-21 21:07] LABS: Glucose,Whole Blood 243 mg/dL (75-99)
[2016-12-21] MEDS: INSULIN GLARGINE 100 UNIT/ML 10 ML VIAL SQ SCH (22:06)
[2016-12-22] MEDS: SODIUM CHLORIDE 0.9% 1,000 ML IV SCH (06:18)
[2016-12-22 07:29] LABS: Glucose,Whole Blood 167 mg/dL (75-99)
[2016-12-22] MEDS: predniSONE 10 MG TAB PO SCH (08:05)
[2016-12-22] MEDS: ISOSORBIDE MONONITRATE ER 30 MG TAB.ER.24H PO SCH (08:05)
[2016-12-22] MEDS: PANTOPRAZOLE 40 MG/10 ML VIAL IV SCH (08:05)
[2016-12-22] MEDS: LISINOPRIL 10 MG TAB PO SCH (08:05)
[2016-12-22] MEDS: ASPIRIN 81 MG CHEW PO SCH (08:05)
[2016-12-22] MEDS: ATENOLOL 25 MG TAB PO SCH (08:05)
[2016-12-22] MEDS: INSULIN LISPRO (humaLOG) 300 UNIT/3 ML VIAL SQ SCH ×2 (08:06→13:47)
[2016-12-22 09:40] VITALS: RESP 16
--- NOTE | 2016-12-22 11:19 | P.PN ---
Subjective This is a 71 year-Old female with a previous medical history significant for hypertension and hypertensive cardiovascular disease, hyperlipidemia,diabetes mellitus type 2, abdominal aortic aneurysm , carotid artery disease, was recently hospitalized at [facility] for right middle lobe pneumonia and COPD exacerbation and was recently discharged few days ago ,patient stated that she was doing fine till fe wdays ago when she developed to have increased abdominal pain located in the epigastric area with her pain described as sharp pain located in the epigastric area radiating to her back so she ended up coming to the ER at [facility] for evaluation and was given solumedrol 125 mg IVP and was admitted for further evaluation. Patient is sitting up in bed in no acute distress and she will be seen by Gastroenterology for possible PUD and will be started on protonix 40 mg IVP daily. 12/19: patient continues to have sharp pain in the epigastric area. She is refusing pain medications as she states it doesn't last. Consult with Dr. Brizuela added. endoscopy is scheduled for today with Dr. Ding. CAT scan of the abdomen and pelvis with contrast has been ordered. 12/20: CT of the abdomen and pelvis shows a 3.8 x 3.8 infrarenal abdominal aortic aneurysm which extends to the aortic bifurcation. There appears to be variant anatomy within the common origin of the celiac axis and SMA with severe stenosis suspected in this region. Correlate for mesenteric symptoms. Patient seems at risk for development of mesenteric ischemia. Diverticulosis of the colon with no diverticulitis. Bilateral nephrolithiasis with no evidence of hydronephrosis. Gallbladder ultrasound shows cholelithiasis, echogenic foci within the kidney may be vascular in nature. Dr. Brizuela has scheduled her for laparoscopic cholecystectomy tomorrow. Patient underwent EGD with biopsy this morning with Dr. Ding. Findings were of mild antral gastritis. No evidence of esophagitis or peptic ulcer disease. Patient started on a soft diet and continued on Protonix. Abdominal pain is improved today. 12/21: Patient scheduled for laparoscopic cholecystectomy. Patient is complaining of swelling to the right arm. Previous IV site to area which was removed earlier today. Capillary blood glucose running between 163 and 222. Objective - Vital Signs Vital signs: Vital Signs Temp 97.0 F L 12/21/16 12:09 Pulse 66 12/21/16 12:09 Resp 16 02/02/17 12:09 BP 142/65 12/21/16 12:09 Pulse Ox 91 L 12/21/16 12:09 Intake & Output 12/20/16 12/21/16 12/21/16 18:59 06:59 18:59 Intake Total 100 600 100 Balance 100 600 100 Intake: IV 100 100 Oral 600 Other: # Voids 3 1 - Exam General appearance: average body habitus, mild distress - EENT Eyes: anicteric sclerae, EOMI, PERRLA, no ptosis, no scleral icterus, normal appearance ENT: hard of hearing, normal oropharynx, no thrush, no tonsillar exudates, no tonsillar swelling Ears: bilateral: normal - Neck Neck: no lymphadenopathy, normal ROM, no rigidity, no stridor, no thyromegaly Carotids: bilateral: upstroke delayed Thyroid: bilateral: normal size - Respiratory Respiratory: bilateral: diminished, prolonged expiration, negative: dullness, rales, rhonchi, wheezing - Cardiovascular Rhythm: regular Heart sounds: normal: S1, S2 Abnormal Heart Sounds: systolic murmur, no rub, no click - Gastrointestinal General gastrointestinal: soft, no splenomegaly, no tenderness, no umbilical hernia, no ventral hernia - Integumentary Integumentary: normal, normal turgor - Neurologic Neurologic: CNII-XII intact - Musculoskeletal Musculoskeletal: gait normal, strength equal bilaterally - Psychiatric Psychiatric: A&O x's 3, appropriate affect, intact judgment & insight - Labs CBC & Chem 7: 12/21/16 09:18 12/21/16 09:18 Labs: Abnormal Lab Results - Last 24 Hours (Table) 12/20/16 12/20/16 12/21/16 Range/Units 17:03 20:35 07:26 Chloride (98-107) mmol/L Carbon Dioxide (22-30) mmol/L BUN (7-17) mg/dL Glucose (74-99) mg/dL POC Glucose (mg/dL) 193 H 221 H 163 H (75-99) mg/dL Total Protein (6.3-8.2) g/dL Albumin (3.5-5.0) g/dL 12/21/16 12/21/16 Range/Units 09:18 11:38 Chloride 97 L (98-107) mmol/L Carbon Dioxide 32 H (22-30) mmol/L BUN 20 H (7-17) mg/dL Glucose 163 H (74-99) mg/dL POC Glucose (mg/dL) 222 H (75-99) mg/dL Total Protein 5.5 L (6.3-8.2) g/dL Albumin 3.1 L (3.5-5.0) g/dL Assessment and Plan Plan: 1. Abdominal pain secondarey to cholelithiasis status post EGD and laparoscopic cholecystectomy tomorrow. 2. Recent RML pneumonia with COPD exacerbation. will continue with Nebulized treatment,and discontinue Solu-Medrol. 3. Diabetes Mellitus type 2. will continue Lantus 70 units subcutaneously qhs and Humalog per SSI,BGM tid. 4. Hypertension. will continue with Atenolol 25 mg orally daily and Vasotec 5 mg orally daily. 5. Hyperlipidemia. low cholesterol diet. 6. Breast cancer post left lumpectomy.going for Radiation therapy next week. 7. Allergic Rhinitis. will continue with Flonase nasal spray bid. 8. DVT prophylaxis. continue with heparin 5000 units SC q 12 h. 9. GI prophylaxis. continue with PPI. 10. Edema to left arm, monitor . Full code. discharge plan: Return home Impression and plan of care have been directed as dictated by the signing physician. Sanam Dow nurse practitioner acting as scribe for signing physician. Time with Patient: Greater than 30
[2016-12-22 12:38] LABS: Glucose,Whole Blood 181 mg/dL (75-99)
--- NOTE | 2016-12-22 13:49 | US ---
EXAMINATION TYPE: US venous doppler duplex UE RT DATE OF EXAM: 12/22/2016 1:33 PM COMPARISON: NONE CLINICAL HISTORY: edema, dvt. SIDE PERFORMED: right TECHNOLOGIST IMPRESSION: Negative Right Arm: Negative for DVT Satisfactory blood flow and phasicity is seen in the subclavian vein. Satisfactory blood flow, phasicity, compressibility is seen in the internal jugular vein, axillary ve in, and brachial vein in the right upper extremity. Satisfactory color flow and compressibility is seen in the superficial basilic vein. Moderate subcuta neous edema is present at this level. Satisfactory compressibility is seen in the superficial cephali c vein as well as the paired Radial and ulnar veins. IMPRESSION: No ultrasound evidence for acute DVT in the right upper extremity.
[2016-12-22] MEDS: LEVOFLOXACIN 750 MG TAB PO SCH (14:16)
[2016-12-22 15:31] VITALS: BP 166/73; PULSE 66; TEMP 96.4
--- NOTE | 2016-12-22 17:25 | P.PN ---
Subjective Principal diagnosis: Abdominal pain Patient doing well today. Denies pain. Tolerating diet. Anxious to go home today. Objective - Vital Signs Vital signs: Vital Signs Temp 96.4 F L 12/22/16 15:00 Pulse 66 12/22/16 15:00 Resp 16 12/22/16 15:23 BP 166/73 12/22/16 15:00 Pulse Ox 94 L 12/22/16 15:00 Intake & Output 12/21/16 12/22/16 12/22/16 18:59 06:59 18:59 Intake Total 2059 800 Output Total 5 Balance 2054 800 Intake: IV 2059 Sodium Chloride 0.9% 1, 560 000 ml @ 70 mls/hr IV . [id number] ALEKSEY Rx#:[id number] Oral 800 Output: Estimated Blood Loss 5 Other: Voiding Method Toilet # Voids 1 3 - Exam Abdomen: Soft, nondistended, minimal incisional tenderness - Labs CBC & Chem 7: 12/21/16 09:18 12/21/16 09:18 Labs: Abnormal Lab Results - Last 24 Hours (Table) 12/21/16 12/22/16 12/22/16 Range/Units 21:04 07:27 12:35 POC Glucose (mg/dL) 243 H 167 H 181 H (75-99) mg/dL Assessment and Plan (1) Epigastric pain Narrative/Plan: Stable for discharge follow-up 1 week. Status: Acute
--- NOTE | 2016-12-26 08:32 | P.DS ---
Providers Date of admission: 12/18/16 00:28 Expected date of discharge: 12/22/16 Attending physician: Gregory Grider Consults: 12/19/16 11:36 Consult Physician Routine Consulting Provider: Rl Brizuela Reason/Comments: severe abd pain Do you want consulting provider notified?: Yes Primary care physician: [facility] Course: This is a 71 year-Old female with a previous medical history significant for hypertension and hypertensive cardiovascular disease, hyperlipidemia,diabetes mellitus type 2, abdominal aortic aneurysm , carotid artery disease, was recently hospitalized at [facility] for right middle lobe pneumonia and COPD exacerbation and was recently discharged few days ago ,patient stated that she was doing fine till fe wdays ago when she developed to have increased abdominal pain located in the epigastric area with her pain described as sharp pain located in the epigastric area radiating to her back so she ended up coming to the ER at [facility] for evaluation and was given solumedrol 125 mg IVP and was admitted for further evaluation. Patient is sitting up in bed in no acute distress and she will be seen by Gastroenterology for possible PUD and will be started on protonix 40 mg IVP daily. 12/19: patient continues to have sharp pain in the epigastric area. She is refusing pain medications as she states it doesn't last. Consult with Dr. Brizuela added. endoscopy is scheduled for today with Dr. Ding. CAT scan of the abdomen and pelvis with contrast has been ordered. 12/20: CT of the abdomen and pelvis shows a 3.8 x 3.8 infrarenal abdominal aortic aneurysm which extends to the aortic bifurcation. There appears to be variant anatomy within the common origin of the celiac axis and SMA with severe stenosis suspected in this region. Correlate for mesenteric symptoms. Patient seems at risk for development of mesenteric ischemia. Diverticulosis of the colon with no diverticulitis. Bilateral nephrolithiasis with no evidence of hydronephrosis. Gallbladder ultrasound shows cholelithiasis, echogenic foci within the kidney may be vascular in nature. Dr. Brizuela has scheduled her for laparoscopic cholecystectomy tomorrow. Patient underwent EGD with biopsy this morning with Dr. Ding. Findings were of mild antral gastritis. No evidence of esophagitis or peptic ulcer disease. Patient started on a soft diet and continued on Protonix. Abdominal pain is improved today. 2/2: Patient scheduled for laparoscopic cholecystectomy. Patient is complaining of swelling to the right arm. Previous IV site to area which was removed earlier today. Capillary blood glucose running between 163 and 222. 2/3: Patient feels the right arm is about the same today. Ultrasound Doppler will be ordered which showed no evidence of acute DVT. She is passing gas but no bowel movement. She will be discharged home today in stable condition. Discharge diagnoses: 1. Abdominal pain secondarey to cholelithiasis status post EGD and laparoscopic cholecystectomy 2. Recent RML pneumonia with COPD exacerbation 3. Diabetes Mellitus type 2 4. Hypertension 5. Hyperlipidemia 6. Breast cancer post left lumpectomy.going for Radiation therapy next week. 7. Allergic Rhinitis 8. Edema to left arm, monitor . discharge plan: Return home Impression and plan of care have been directed as dictated by the signing physician. Sanam Dow nurse practitioner acting as scribe for signing physician. Patient Condition at Discharge: Good Plan - Discharge Summary New Discharge Prescriptions: Hydrocodone/Acetaminophen [Bowie 5-325] 1 - 2 each PO Q4HR PRN #30 tab PRN Reason: pain Pantoprazole Sodium [Protonix] 40 mg PO DAILY #30 tablet.dr Discharge Medication List Aspirin 81 mg PO DAILY 01/06/15 [History] Enalapril [Vasotec] 5 mg PO DAILY 01/06/15 [History] Isosorbide Mononitrate ER [Imdur] 30 mg PO DAILY 01/06/15 [History] Albuterol Inhaler [Ventolin Hfa Inhaler] 2 puff INHALATION RT-Q4H PRN 12/09/16 [ History] Fluticasone Nasal Gallant [Flonase Nasal Gallant] 1 spr EA NOSTRIL DAILY PRN [History] Insulin Aspart [NovoLOG] 20 unit SQ AC-TID MDD MAX 90UNITS TOTAL 12/09/16 [ History] Insulin Aspart [NovoLOG] See Protocol SQ AC-TID MDD MAX 90 UNITS TOTAL 12/09/16 [History] Insulin Glargine,Hum.rec.anlog [Toujeo Solostar] 70 units SQ HS 12/09/16 [ History] Levofloxacin [Levaquin] 750 mg PO Q48H #3 tab 12/13/16 [Rx] Atenolol 25 mg PO DAILY 12/18/16 [History] Hydrocodone/Acetaminophen [Bowie 5-325] 1 - 2 each PO Q4HR PRN #30 tab 12/21/16 [Rx] Pantoprazole Sodium [Protonix] 40 mg PO DAILY #30 tablet. 12/22/16 [Rx] Follow up Appointment(s)/Referral(s): Rl Brizuela MD [Medical Doctor] - 01/04/17 9:00 am Tyrell Woodruff MD [Primary Care Provider] - 1-2 days (Please call for appointment. ) Patient Instructions/Handouts: *Surgery [facility] - ([facility]) Laparoscopic Cholecystectomy, COPD (Chronic Obstructive Pulmonary Disease) (DC) Activity/Diet/Wound Care/Special Instructions: Cardiac, diabetic diet. Diabetic folder given. Discharge Disposition: HOME SELF-CARE
== END 2016-12-22 17:14 | disposition home or self-care (01) | DRG 418 ==
LOC: EC 19:51 → 4MS4W 12-18 00:28
PROVIDERS: ADMIT Internal Medicine Geriatric Medicine; ATTEND Internal Medicine Geriatric Medicine
PROC: 0DB68ZX Excision of Stomach, Via Natural or Artificial Opening Endoscopic, Diagnostic (ICD-10-PCS; 2016-12-20)
PROC: 0FT44ZZ Resection of Gallbladder, Percutaneous Endoscopic Approach (ICD-10-PCS; principal; 2016-12-21 13:00)
DX: K80.00 Calculus of gallbladder with acute cholecystitis without obstruction (principal); J44.1 Chronic obstructive pulmonary disease with (acute) exacerbation; I77.4 Celiac artery compression syndrome; I11.9 Hypertensive heart disease without heart failure; C50.912 Malignant neoplasm of unspecified site of left female breast; D72.829 Elevated white blood cell count, unspecified; N20.0 Calculus of kidney; K29.60 Other gastritis without bleeding; K21.9 Gastro-esophageal reflux disease without esophagitis; K57.30 Diverticulosis of large intestine without perforation or abscess without bleeding; E11.9 Type 2 diabetes mellitus without complications; M79.89 Other specified soft tissue disorders; I71.4 Abdominal aortic aneurysm, without rupture; E78.5 Hyperlipidemia, unspecified; I25.10 Atherosclerotic heart disease of native coronary artery without angina pectoris; I70.0 Atherosclerosis of aorta; M19.90 Unspecified osteoarthritis, unspecified site; J30.9 Allergic rhinitis, unspecified; H91.90 Unspecified hearing loss, unspecified ear; Z79.82 Long term (current) use of aspirin; Z79.4 Long term (current) use of insulin; Z82.49 Family history of ischemic heart disease and other diseases of the circulatory system; Z82.3 Family history of stroke; Z80.3 Family history of malignant neoplasm of breast; Z87.891 Personal history of nicotine dependence; Z88.1 Allergy status to other antibiotic agents; Z79.51 Long term (current) use of inhaled steroids; Z79.899 Other long term (current) drug therapy; Z87.01 Personal history of pneumonia (recurrent); Z90.710 Acquired absence of both cervix and uterus; Z80.0 Family history of malignant neoplasm of digestive organs; Z90.12 Acquired absence of left breast and nipple; Z78.0 Asymptomatic menopausal state; Z86.79 Personal history of other diseases of the circulatory system
CPT/HCPCS: 36415; 43239; 71020; 74020; 74177; 76705; 80053; 81003; 82150; 82553; 83036; 83605; 83615; 83690; 84484; 85025; 85610; 87086; 88304; 88305; 88342; 93005; 94640; 94760; 96361; 96374; 96375; 99285

== ENCOUNTER 2017-01-01 10:12 | Emergency (ER) | payer MEDICARE ==
[2017-01-01 10:25] VITALS: RESP 18
[2017-01-01] MEDS ORDERED: FAMOTIDINE 20 MG/2 ML VIAL IV STA (10:38)
[2017-01-01] MEDS ORDERED: ONDANSETRON 4 MG/2 ML VIAL IVP STA (10:38)
[2017-01-01] MEDS ORDERED: MAG HYDROX/AL HYDROX/SIMETH 30 ML, HYOSCYAMINE ELIXIR 10 ML, CIMETIDINE HCL 300 MG, LID... PO STA ×4 (10:38)
--- NOTE | 2017-01-01 10:42 | ED ---
Abdominal Pain HPI - General Chief Complaint: Abdominal Pain Stated Complaint: Gallbladder Pain Time Seen by Provider: 01/01/17 10:24 Source: patient Mode of arrival: ambulatory Limitations: physical limitation - History of Present Illness Initial Comments: This is a 71-year-old female who presents emergency department for epigastric abdominal pain for the last week. She had her gallbladder removed approximately one week ago with Dr. Elizabeth. She states that she's been taking Moban and Protonix at home for pain. She states that now every time she eats she has epigastric abdominal pain. She also admits to some burning in her throat. She denies any vomiting. No diarrhea. No dysuria or hematuria. She denies any fevers or chills. She spoke with Dr. Elizabeth this morning who advised her to come emergency department. She denies any other complains. - Related Data Home Medications Medication Instructions Recorded Confirmed Aspirin 81 mg PO DAILY 01/06/15 01/01/17 Enalapril [Vasotec] 5 mg PO DAILY 01/06/15 01/01/17 Isosorbide Mononitrate ER [Imdur] 30 mg PO DAILY 01/06/15 01/01/17 Albuterol Inhaler [Ventolin Hfa 2 puff INHALATION RT-Q4H PRN 12/09/16 01/01/17 Inhaler] Fluticasone Nasal [place] [Flonase 1 spr EA NOSTRIL DAILY PRN 12/09/16 01/01/17 Nasal [place]] Insulin Aspart [NovoLOG] 20 unit SQ AC-TID MDD MAX 90UNITS 12/09/16 01/01/17 TOTAL Insulin Aspart [NovoLOG] See Protocol SQ AC-TID MDD MAX 90 12/09/16 01/01/17 UNITS TOTAL Insulin Glargine,Hum.rec.anlog 70 units SQ HS 12/09/16 01/01/17 [Daily Steele] Atenolol 25 mg PO DAILY 12/18/16 01/01/17 Previous Rx's Medication Instructions Recorded Hydrocodone/Acetaminophen [[place] 1 - 2 each PO Q4HR PRN #30 tab 12/21/16 5-325] Pantoprazole Sodium [Protonix] 40 mg PO DAILY #30 tablet. 12/22/16 Allergies Allergy/AdvReac Type Severity Reaction Status Date / Time azithromycin Allergy Swelling Verified 01/01/17 10:25 Review of Systems ROS Statement: Those systems with pertinent positive or pertinent negative responses have been documented in the HPI. ROS Other: All systems not noted in ROS Statement are negative. Past Medical History Past Medical History: Cancer, Diabetes Mellitus, GERD/Reflux, Hearing Disorder / Deafness, Hyperlipidemia, Hypertension, Osteoarthritis (OA), Vascular Disorder Additional Past Medical History / Comment(s): KIDNEY STONES, NEW BREAST CA/ RADIATION TO START FIRST WEEK IN DEC-2016 History of Any Multi-Drug Resistant Organisms: None Reported Past Surgical History: Section, Hysterectomy Additional Past Surgical History / Comment(s): LEFT BREAST BIOPSY R/T POSITIVE MAMMOGRAM. Past Anesthesia/Blood Transfusion Reactions: No Reported Reaction Past Psychological History: No Psychological Hx Reported Smoking Status: Former smoker Past Alcohol Use History: None Reported Past Drug Use History: None Reported - Past Family History Brother(s) Family Medical History: Congestive Heart Failure (CHF), Myocardial Infarction ( [place]) (patient has 15 brothers and sisters 2 brothers from [place].) Mother Additional Family Medical History / Comment(s): BREAST CANCER WITH METS TO LIVER AND BODY Father Family Medical History: CVA/TIA (Father from CVA.) Daughter(s) Family Medical History: No Reported History (patient has 5 children one daughter with a pacemaker.) General Exam - General Exam Comments Initial Comments: Constitutional: Awake alert Appears comfortable Head: Normocephalic atraumatic Eyes: no conjunctival injection No scleral icterus EOMI Neck: No JVD Supple Heart: Regular rate rhythm normal S1-S2 no murmurs Lungs: Clear to auscultation bilaterally No wheezing No rales Abdomen: Soft nondistended tenderness in the epigastric area without rebound or guarding Extremities: Non edematous DP pulses intact Radial pulses intact Neuro: A&Ox3 No focal neurologic deficits Psych: Appropriate mood and affect Limitations: physical limitation Course Vital Signs 01/01/17 01/01/17 10:22 12:21 Temperature 98.2 F 98.7 F Pulse Rate 85 75 Respiratory 18 18 Rate Blood Pressure 143/62 143/61 O2 Sat by Pulse 94 L 97 Oximetry - Reevaluation(s) Reevaluation #1: 01/01/17 11:21 EKG showing normal sinus rhythm with a rate of 77. No ST segment changes or T- wave inversions. QTC is 463. Other intervals are normal. No ectopy. Medical Decision Making - Medical Decision Making This is a 71-year-old female presents emergency department for recurrent epigastric abdominal pain. Labwork here was unremarkable. Ultrasound did not show any bile duct dilation to make me think of biliary stone. I did review the computed tomography scan from [place] [id number] that showed severe narrowing of the SMA. I spoke with Dr. Alonso here states that they do not take care of that here. The decision was made to send the patient to [facility] for evaluation. Spoke with Dr. Alcazar and referred Yodit who accepted the transfer to the ER for evaluation. The patient will be sent with her CAT scan labwork. Patient and her daughter were updated and agree with the plan. - Lab Data Result diagrams: 01/01/17 10:40 01/01/17 10:40 Lab Results 01/01/17 01/01/17 01/01/17 Range/Units 10:40 10:40 10:40 WBC 13.1 H (3.8-10.6) k/uL RBC 5.00 (3.80-5.40) m/uL Hgb 13.6 (11.4-16.0) gm/dL Hct 43.4 (34.0-46.0) % MCV 86.6 (80.0-100.0) fL MCH 27.2 (25.0-35.0) pg MCHC 31.4 (31.0-37.0) g/dL RDW 14.2 (11.5-15.5) % Plt Count 270 (150-450) k/uL Neutrophils % 80 % Lymphocytes % 11 % Monocytes % 4 % Eosinophils % 5 % Basophils % 0 % Neutrophils # 10.4 H (1.3-7.7) k/uL Lymphocytes # 1.5 (1.0-4.8) k/uL Monocytes # 0.5 (0-1.0) k/uL Eosinophils # 0.6 (0-0.7) k/uL Basophils # 0.1 (0-0.2) k/uL PT 11.6 (9.0-12.0) sec INR 1.2 (<1.1) Sodium (137-145) mmol/L Potassium (3.5-5.1) mmol/L Chloride (98-107) mmol/L Carbon Dioxide (22-30) mmol/L Anion Gap mmol/L BUN (7-17) mg/dL Creatinine (0.52-1.04) mg/dL Est GFR (MDRD) Af Amer (>60 ml/min/1.73 sqM) Est GFR (MDRD) Non-Af (>60 ml/min/1.73 sqM) Glucose (74-99) mg/dL Calcium (8.4-10.2) mg/dL Magnesium (1.6-2.3) mg/dL Total Bilirubin (0.2-1.3) mg/dL AST (14-36) U/L ALT (9-52) U/L Alkaline Phosphatase (38-126) U/L Total Protein (6.3-8.2) g/dL Albumin (3.5-5.0) g/dL Amylase <30 L (30-110) U/L Lipase (23-300) U/L 01/01/17 Range/Units 10:40 WBC (3.8-10.6) k/uL RBC (3.80-5.40) m/uL Hgb (11.4-16.0) gm/dL Hct (34.0-46.0) % MCV (80.0-100.0) fL MCH (25.0-35.0) pg MCHC (31.0-37.0) g/dL RDW (11.5-15.5) % Plt Count (150-450) k/uL Neutrophils % % Lymphocytes % % Monocytes % % Eosinophils % % Basophils % % Neutrophils # (1.3-7.7) k/uL Lymphocytes # (1.0-4.8) k/uL Monocytes # (0-1.0) k/uL Eosinophils # (0-0.7) k/uL Basophils # (0-0.2) k/uL PT (9.0-12.0) sec INR (<1.1) Sodium 138 (137-145) mmol/L Potassium 4.6 (3.5-5.1) mmol/L Chloride 96 L (98-107) mmol/L Carbon Dioxide 29 (22-30) mmol/L Anion Gap 13 mmol/L BUN 11 (7-17) mg/dL Creatinine 0.92 (0.52-1.04) mg/dL Est GFR (MDRD) Af Amer >60 (>60 ml/min/1.73 sqM) Est GFR (MDRD) Non-Af >60 (>60 ml/min/1.73 sqM) Glucose 279 H (74-99) mg/dL Calcium 8.9 (8.4-10.2) mg/dL Magnesium 1.3 L (1.6-2.3) mg/dL Total Bilirubin 1.0 (0.2-1.3) mg/dL AST 17 (14-36) U/L ALT 27 (9-52) U/L Alkaline Phosphatase 113 (38-126) U/L Total Protein 5.9 L (6.3-8.2) g/dL Albumin 3.3 L (3.5-5.0) g/dL Amylase (30-110) U/L Lipase 63 (23-300) U/L Disposition Clinical Impression: Abdominal angina, SMA stenosis Disposition: OTHER INSTITUTION NOT DEFINED Condition: Stable - Out of Hospital Transfer - Req. Specs Out of Hospital Transfer - Requested Specifics: Other Emergency Center ([facility])
[2017-01-01 10:49] LABS: Basophils # (A) 0.1 k/uL (0-0.2); Basophils % (A) 0 %; CH 28.4; Eosinophils # (A) 0.6 k/uL (0-0.7); Eosinophils % (A) 5 %; HCT 43.4 % (34.0-46.0); HDW 2.91; HGB 13.6 gm/dL (11.4-16.0); Luc # (Auto) 0.09; Luc % (Auto) 1; Lymphocytes # (A) 1.5 k/uL (1.0-4.8); Lymphocytes % (A) 11 %; MCH 27.2 pg (25.0-35.0); MCHC 31.4 g/dL (31.0-37.0); MCV 86.6 fL (80.0-100.0); Mean Platelet Volume 8.2; Monocytes # (A) 0.5 k/uL (0-1.0); Monocytes % (A) 4 %; Neutrophils # (A) 10.4 k/uL (1.3-7.7); Neutrophils % (A) 80 %; RDW 14.2 % (11.5-15.5); WBC 13.1 k/uL (3.8-10.6); WBC (Perox) 13.18
[2017-01-01 11:01] LABS: ALT 27 U/L (9-52); AST 17 U/L (14-36); Alkaline Phosphatase 113 U/L (38-126); Anion Gap 13 mmol/L; Blood Urea Nitrogen 11 mg/dL (7-17); Calcium 8.9 mg/dL (8.4-10.2); Carbon Dioxide 29 mmol/L (22-30); Chloride 96 mmol/L (98-107); Glucose 279 mg/dL (74-99); Magnesium 1.3 mg/dL (1.6-2.3); Non-African American GFR(MDRD) >60 (>60 ml/min/1.73 sqM); Potassium 4.6 mmol/L (3.5-5.1); Sodium 138 mmol/L (137-145); Total Protein 5.9 g/dL (6.3-8.2)
[2017-01-01 11:07] LABS: INR 1.2 (<1.1); Prothrombin Time 11.6 sec (9.0-12.0)
[2017-01-01] MEDS ORDERED: MAGNESIUM OXIDE 400 MG TAB PO STA (11:21)
[2017-01-01] MEDS ORDERED: MORPHINE SULFATE 4 MG/ML SYRINGE IVP STA (11:30)
--- NOTE | 2017-01-01 12:10 | XR ---
EXAMINATION TYPE: XR abdomen acute w cxr DATE OF EXAM ORDERED: 01/01/2017 12:00 PM HISTORY: Abdominal pain and nausea. COMPARISON: None. FINDINGS: The lungs are overinflated but clear. Pleural spaces are clear. Heart size is upper limits of normal. Within the abdomen, there are cholecystectomy clips. The abdominal gas pattern is within normal limit s. There is no evidence of obstruction or free air. There are phleboliths and other vascular calcific ations within the pelvis. There are degenerative changes in the spine and hips. IMPRESSION: 1. COPD. 2. NO ACUTE INTRATHORACIC OR ABDOMINAL ABNORMALITY.
--- NOTE | 2017-01-01 13:06 | US ---
EXAMINATION TYPE: US abdomen limited DATE OF EXAM: 01/01/2017 12:16 PM COMPARISON: Previous study dated 12/20/2016 CLINICAL HISTORY: RUQ pain. RUQ pain with intermittent N/V x 2 weeks, history of cholecystectomy 2 we eks ago EXAM MEASUREMENTS: Liver Length: 16.8 cm Gallbladder Wall: Surgically absent CBD: 0.4 cm Right Kidney: 10.7 x 4.5 x 5.0 cm TECHNOLOGIST IMPRESSION: Pancreas: visualized portions appear wnl, tail obscured by overlying midline gas Liver: appears slightly heterogeneous without any definite lesions seen at this time Gallbladder: Surgically absent Evidence for sonographic Olivarez's sign: no CBD: visualized portions wnl, limited by overlying bowel gas Right Kidney: wnl IMPRESSION: NORMAL RIGHT UPPER QUADRANT ULTRASOUND.
[2017-01-01] MEDS ORDERED: SODIUM CHLORIDE 0.9% 1,000 ML IV SCH (13:15)
[2017-01-01 13:57] VITALS: BP 143/65; PULSE 88; TEMP 98.6
== END 2017-01-01 14:00 | disposition other institution (70) ==
LOC: EC 10:12
DX: K55.1 Chronic vascular disorders of intestine (principal); G12.9 Spinal muscular atrophy, unspecified; J44.9 Chronic obstructive pulmonary disease, unspecified; C50.919 Malignant neoplasm of unspecified site of unspecified female breast; I10 Essential (primary) hypertension; E11.9 Type 2 diabetes mellitus without complications; H91.90 Unspecified hearing loss, unspecified ear; Z87.891 Personal history of nicotine dependence; Z88.1 Allergy status to other antibiotic agents; Z79.82 Long term (current) use of aspirin; Z79.4 Long term (current) use of insulin; Z79.899 Other long term (current) drug therapy
CPT/HCPCS: 99285; 96374; 96375 ×2; 96361; 36415; 93005; 80053; 82150; 83690; 83735; 85025; 85610; 74022; 76705; J2270; J2405

== ENCOUNTER 2017-03-10 08:58 | Inpatient (IN) | payer MEDICARE ==
[2017-03-10] MEDS ORDERED: SODIUM CHLORIDE 0.9% 1,000 ML IV STA (09:24)
--- NOTE | 2017-03-10 09:28 | ED ---
General Adult HPI <Mark Perez - Last Filed: 03/10/17 14:05> - General Source: patient, family, RN notes reviewed Mode of arrival: ambulatory Limitations: no limitations <Rl March - Last Filed: 03/10/17 14:33> - General Chief complaint: Abdominal Pain Stated complaint: abd pain Time Seen by Provider: 03/10/17 09:13 - History of Present Illness Initial comments: Patient is a 71-year-old female who presents emergency room today with a chief complaint of left-sided abdominal pain that started last night. She does admit to a recent surgery just 2 months ago through [facility] where a stent was placed in an artery going to her intestines. She states that she began having pain last night. She states it was sharp. She states it has improved but is still there at this time. She states is not as bad and is relatively comfortable. She denies any other complaints or associated symptoms. Patient denies any recent fever, chills, shortness of breath, chest pain, back pain, nausea or vomiting, numbness or tingling, dysuria or hematuria, constipation or diarrhea, headaches or visual changes, or any other complaints. (Rl March) - Related Data Home Medications Medication Instructions Recorded Confirmed Enalapril [Vasotec] 5 mg PO DAILY 01/06/15 03/10/17 Isosorbide Mononitrate ER [Imdur] 30 mg PO DAILY 01/06/15 03/10/17 Albuterol Inhaler [Ventolin Hfa 2 puff INHALATION RT-Q4H PRN 12/09/16 03/10/17 Inhaler] Fluticasone Nasal [place] [Flonase 1 spr EA NOSTRIL DAILY PRN 12/09/16 03/10/17 Nasal [place]] Insulin Aspart [NovoLOG] 20 unit SQ AC-TID MDD MAX 90 UNITS 12/09/16 03/10/17 TOTAL Insulin Aspart [NovoLOG] See Protocol SQ AC-TID MDD MAX 90 12/09/16 03/10/17 UNITS TOTAL Insulin Glargine,Hum.rec.anlog 70 units SQ HS 12/09/16 03/10/17 [Daily Steele] Atenolol 25 mg PO DAILY 12/18/16 03/10/17 Aspirin EC [Ecotrin Low Dose] 81 mg PO DAILY 03/10/17 03/10/17 Atorvastatin [Lipitor] 40 mg PO HS 03/10/17 03/10/17 Clopidogrel [Plavix] 75 mg PO DAILY 03/10/17 03/10/17 Allergies Allergy/AdvReac Type Severity Reaction Status Date / Time azithromycin Allergy Rash/Hives Verified 03/10/17 12:35 Review of Systems ROS Other: All systems not noted in ROS Statement are negative. <Mark Perez - Last Filed: 03/10/17 14:05> ROS Other: All systems not noted in ROS Statement are negative. <Rl March - Last Filed: 03/10/17 14:33> ROS Statement: Those systems with pertinent positive or pertinent negative responses have been documented in the HPI. Past Medical History Past Medical History: Cancer, Diabetes Mellitus, GERD/Reflux, Hearing Disorder / Deafness, Hyperlipidemia, Hypertension, Osteoarthritis (OA), Vascular Disorder Additional Past Medical History / Comment(s): KIDNEY STONES, NEW BREAST CA/ RADIATION TO START FIRST WEEK IN DEC-2016 History of Any Multi-Drug Resistant Organisms: None Reported Past Surgical History: Section, Hysterectomy Additional Past Surgical History / Comment(s): LEFT BREAST BIOPSY R/T POSITIVE MAMMOGRAM. Past Anesthesia/Blood Transfusion Reactions: No Reported Reaction Past Psychological History: No Psychological Hx Reported Smoking Status: Former smoker Past Alcohol Use History: None Reported Past Drug Use History: None Reported - Past Family History Brother(s) Family Medical History: Congestive Heart Failure (CHF), Myocardial Infarction ( [place]) (patient has 15 brothers and sisters 2 brothers from [place].) Mother Additional Family Medical History / Comment(s): BREAST CANCER WITH METS TO LIVER AND BODY Father Family Medical History: CVA/TIA (Father from CVA.) Daughter(s) Family Medical History: No Reported History (patient has 5 children one daughter with a pacemaker.) <Rl March - Last Filed: 03/10/17 14:33> General Exam <Mark Perez - Last Filed: 03/10/17 14:05> Limitations: no limitations <Rl March - Last Filed: 03/10/17 14:33> - General Exam Comments Initial Comments: General: The patient is awake and alert, in no distress, and does not appear acutely ill. Eye: Pupils are equal, round and reactive to light, extra-ocular movements are intact. No nystagmus. There is normal conjunctiva bilaterally. No signs of icterus. Ears, nose, mouth and throat: There are moist mucous membranes and no oral lesions. Neck: The neck is supple, there is no tenderness or JVD. Cardiovascular: There is a regular rate and rhythm. No murmur, rub or gallop is appreciated. Respiratory: Lungs are clear to auscultation, respirations are non-labored, breath sounds are equal. No wheezes, stridor, rales, or rhonchi. Gastrointestinal: Normal appearance. Normal bowel sounds. Abdomen soft on palpation. Patient does have mild tenderness left upper quadrant. No rebound tenderness. No guarding. No CVA tenderness. Musculoskeletal: Normal ROM, no tenderness. Strength 5/5. Sensation intact. Pulses equal bilaterally 2+. Neurological: A&O x 3. CN II-XII intact, There are no obvious motor or sensory deficits. Coordination appears grossly intact. Speech is normal. Skin: Skin is warm and dry and no rashes or lesions are noted. Psychiatric: Cooperative, appropriate mood & affect, normal judgment. (Rl March) Course <Mark Perez - Last Filed: 03/10/17 14:05> <Rl March - Last Filed: 03/10/17 14:33> Vital Signs 03/10/17 09:03 Temperature 98.5 F Pulse Rate 100 Respiratory 16 Rate Blood Pressure 178/72 O2 Sat by Pulse 95 Oximetry - Reevaluation(s) Reevaluation #1: 03/10/17 09:26 71-year-old female presenting status post abdominal surgery for a stent in an artery to the intestines as per family. Records will be obtained from [facility]. Patient has labs ordered and currently pending at this time. Patient states she is relatively comfortable does not want any pain medication. She will be continued to be monitored. (Rl March) Medical Decision Making - Lab Data Result diagrams: 03/10/17 10:10 03/10/17 10:10 <Mark Perez - Last Filed: 03/10/17 14:05> - Lab Data Result diagrams: 03/10/17 10:10 03/10/17 10:10 <Rl March - Last Filed: 04/22/17 14:33> - Medical Decision Making Patient reevaluated by myself, Dr. Perez. Patient resting comfortably in bed. Patient does have moderate tenderness left lower quadrant. Family is very concerned. Case discussed with Dr. Alex xie, who will admit for Dr. Woodruff. (Mark Perez) - Lab Data Lab Results 03/10/17 03/10/17 03/10/17 Range/Units 10:10 10:10 10:10 WBC 13.0 H (3.8-10.6) k/uL RBC 4.69 (3.80-5.40) m/uL Hgb 13.3 (11.4-16.0) gm/dL Hct 39.9 (34.0-46.0) % MCV 84.9 (80.0-100.0) fL MCH 28.3 (25.0-35.0) pg MCHC 33.3 (31.0-37.0) g/dL RDW 13.7 (11.5-15.5) % Plt Count 242 (150-450) k/uL Neutrophils % 71 % Lymphocytes % 19 % Monocytes % 6 % Eosinophils % 3 % Basophils % 0 % Neutrophils # 9.2 H (1.3-7.7) k/uL Lymphocytes # 2.4 (1.0-4.8) k/uL Monocytes # 0.7 (0-1.0) k/uL Eosinophils # 0.4 (0-0.7) k/uL Basophils # 0.0 (0-0.2) k/uL PT (9.0-12.0) sec INR (<1.1) APTT (22.0-30.0) sec Sodium 140 (137-145) mmol/L Potassium 4.5 (3.5-5.1) mmol/L Chloride 100 (98-107) mmol/L Carbon Dioxide 31 H (22-30) mmol/L Anion Gap 9 mmol/L BUN 14 (7-17) mg/dL Creatinine 0.86 (0.52-1.04) mg/dL Est GFR (MDRD) Af Amer >60 (>60 ml/min/1.73 sqM) Est GFR (MDRD) Non-Af >60 (>60 ml/min/1.73 sqM) Glucose 178 H (74-99) mg/dL Plasma Lactic Acid Gerald 2.6 H* (0.7-2.0) mmol/L Calcium 9.3 (8.4-10.2) mg/dL Total Bilirubin 0.8 (0.2-1.3) mg/dL AST 29 (14-36) U/L ALT 31 (9-52) U/L Alkaline Phosphatase 142 H (38-126) U/L Total Protein 7.4 (6.3-8.2) g/dL Albumin 4.1 (3.5-5.0) g/dL Amylase 43 (30-110) U/L Lipase 87 (23-300) U/L 03/10/17 Range/Units 10:14 WBC (3.8-10.6) k/uL RBC (3.80-5.40) m/uL Hgb (11.4-16.0) gm/dL Hct (34.0-46.0) % MCV (80.0-100.0) fL MCH (25.0-35.0) pg MCHC (31.0-37.0) g/dL RDW (11.5-15.5) % Plt Count (150-450) k/uL Neutrophils % % Lymphocytes % % Monocytes % % Eosinophils % % Basophils % % Neutrophils # (1.3-7.7) k/uL Lymphocytes # (1.0-4.8) k/uL Monocytes # (0-1.0) k/uL Eosinophils # (0-0.7) k/uL Basophils # (0-0.2) k/uL PT 10.3 (9.0-12.0) sec INR 1.0 (<1.1) APTT 21.2 L (22.0-30.0) sec Sodium (137-145) mmol/L Potassium (3.5-5.1) mmol/L Chloride (98-107) mmol/L Carbon Dioxide (22-30) mmol/L Anion Gap mmol/L BUN (7-17) mg/dL Creatinine (0.52-1.04) mg/dL Est GFR (MDRD) Af Amer (>60 ml/min/1.73 sqM) Est GFR (MDRD) Non-Af (>60 ml/min/1.73 sqM) Glucose (74-99) mg/dL Plasma Lactic Acid Gerald (0.7-2.0) mmol/L Calcium (8.4-10.2) mg/dL Total Bilirubin (0.2-1.3) mg/dL AST (14-36) U/L ALT (9-52) U/L Alkaline Phosphatase (38-126) U/L Total Protein (6.3-8.2) g/dL Albumin (3.5-5.0) g/dL Amylase (30-110) U/L Lipase (23-300) U/L Disposition <Mark Perez - Last Filed: 03/10/17 14:05> Time of Disposition: 14:02 <Rl March - Last Filed: 03/10/17 14:33> Clinical Impression: Acute diverticulitis Disposition: ADMITTED IP TO THIS [facility] Condition: Good
--- NOTE | 2017-03-10 10:03 | XR ---
EXAMINATION TYPE: XR KUB DATE OF EXAM: 03/10/2017 9:58 AM COMPARISON: 01/01/2017 INDICATION: Abdomen pain right side TECHNIQUE: Single view abdomen upright view FINDINGS: There is a normal bowel gas pattern. Psoas margins are normal. No organomegaly is present. No suspicious calcifications are evident. IMPRESSION: 1. Unremarkable Abdomen
[2017-03-10 10:24] LABS: Basophils % (A) 0 %; CHCM 33.2; Eosinophils # (A) 0.4 k/uL (0-0.7); Eosinophils % (A) 3 %; HCT 39.9 % (34.0-46.0); HDW 3.39; HGB 13.3 gm/dL (11.4-16.0); Luc # (Auto) 0.25; Luc % (Auto) 2; Lymphocytes # (A) 2.4 k/uL (1.0-4.8); Lymphocytes % (A) 19 %; MCH 28.3 pg (25.0-35.0); MCHC 33.3 g/dL (31.0-37.0); MCV 84.9 fL (80.0-100.0); Mean Platelet Volume 7.4; Monocytes # (A) 0.7 k/uL (0-1.0); Monocytes % (A) 6 %; Neutrophils # (A) 9.2 k/uL (1.3-7.7); Neutrophils % (A) 71 %; RBC 4.69 m/uL (3.80-5.40); RDW 13.7 % (11.5-15.5)
[2017-03-10 10:33] LABS: Prothrombin Time 10.3 sec (9.0-12.0)
[2017-03-10 10:34] LABS: ALT 31 U/L (9-52); AST 29 U/L (14-36); Alkaline Phosphatase 142 U/L (38-126); Amylase 43 U/L (30-110); Anion Gap 9 mmol/L; Blood Urea Nitrogen 14 mg/dL (7-17); Calcium 9.3 mg/dL (8.4-10.2); Carbon Dioxide 31 mmol/L (22-30); Chloride 100 mmol/L (98-107); Glucose 178 mg/dL (74-99); Non-African American GFR(MDRD) >60 (>60 ml/min/1.73 sqM); Potassium 4.5 mmol/L (3.5-5.1); Sodium 140 mmol/L (137-145); Total Bilirubin 0.8 mg/dL (0.2-1.3); Total Protein 7.4 g/dL (6.3-8.2)
[2017-03-10 10:35] LABS: Appearance,Urine Cloudy (Clear); Bacteria,Urine Rare /hpf; Bilirubin,Urine Negative (Negative); Glucose,Urine (UA) Negative (Negative); Ketones,Urine Negative (Negative); Leukocyte Esterase,Urine Large (Negative); Mucus,Urine Rare /hpf; Nitrite,Urine Negative (Negative); PH, Urine 5.5 (5.0-8.0); Particle Count 10687; Protein,Urine 2+ (Negative); RBC,Urine 2 /hpf (0-5); Specific Gravity,Urine 1.009 (1.001-1.035); Squamous Epithelial Cell,Urine 11 /hpf (0-4); UA Billing (MACRO vs. MICRO) MICRO; Urobilinogen,Urine <2.0 mg/dL (<2.0); WBC,Urine 16 /hpf (0-5)
[2017-03-10] MEDS ORDERED: RX INFO: IV CONTRAST WAS GIVEN 1 EACH MISC MISCELLANE PRN (10:42)
[2017-03-10 11:37] LABS: Partial Thromboplastin Time 21.2 sec (22.0-30.0)
--- NOTE | 2017-03-10 13:08 | CT ---
EXAMINATION TYPE: CT abdomen pelvis w con DATE OF EXAM: 03/10/2017 11:44 AM COMPARISON: 12/19/2016 INDICATION: Left side abdominal pain DLP: 550.8 mGycm, Automated exposure control for dose reduction was used. CONTRAST: 100 mL of Omnipaque 300. Study performed without Oral Contrast TECHNIQUE: Axial images were obtained from above the diaphragm to the pubic rami in the axial plane a t 5 mm thick sections. Reconstructed images are reviewed on the computer in the coronal plane. FINDINGS: Limited CT sections are obtained the lung bases. The lung bases are clear. CT ABDOMEN: Liver: Normal Spleen: Normal Pancreas: Normal Adrenal glands: The adrenal glands are normal. Gallbladder: Surgically absent Kidneys: No masses are evident. No hydronephrosis is present. No cysts are present. There appear to be nonobstructing renal stones in the right kidney. Delayed images were obtained through the kidneys , which remain unremarkable. Aorta: Vascular calcification is within the aorta. There is some dilatation of the mid abdominal aor ta infrarenal portion terminating above the bifurcation with a maximal AP diameter of 3.8 cm. This is stable. Inferior vena cava: Normal. CT PELVIS: Loops of bowel within the abdomen appear unremarkable without contrast. Within the pelvis there is in flammatory change adjacent to the distal sigmoid colon. The more proximal sigmoid colon contains mult iple diverticuli without acute diverticulitis. Few Sigmoid diverticuli are within the distal sigmoid colon. Differential could include diverticulitis or colitis. Appendix: Normal as visualized. Urinary bladder: Normal. Genitourinary structures: Uterus is unremarkable. Adnexal regions are clear. Osseous structures: No suspicious lytic or sclerotic lesions. Facet degenerative changes are present. IMPRESSIONS: 1. Distal sigmoid diverticulitis versus colitis. 2. Proximal sigmoid diverticulosis. 3. Stable 3.8 cm dilated mid abdominal aorta.
[2017-03-10] MEDS ORDERED: SODIUM CHLORIDE 0.9% 500 ML IV STA (13:37)
[2017-03-10] MEDS ORDERED: LEVOFLOXACIN 500MG-D5W PMX 500 MG in DEXTROSE/WATER 1 100ML.BAG IVPB STA (14:23)
[2017-03-10] MEDS ORDERED: metroNIDAZOLE-NS PMX 500 MG in SALINE 1 100ML.BAG IVPB STA (14:23)
[2017-03-10] MEDS ORDERED: HYDROcodone/APAP 5-325MG 1 EACH TAB PO STA (14:23)
[2017-03-10] MEDS ORDERED: HYDROcodone/APAP 5-325MG 1 EACH TAB PO PRN (14:33)
[2017-03-10] MEDS ORDERED: ONDANSETRON 4 MG/2 ML VIAL IVP PRN (14:33)
[2017-03-10] MEDS ORDERED: NALOXONE 0.4 MG/ML 1 ML VIAL IV PRN (14:33)
[2017-03-10] MEDS ORDERED: HYDROmorphone 1 MG/ML 1 ML SYRINGE IV PRN (14:33)
--- NOTE | 2017-03-10 14:45 | P.HPIM ---
History of Present Illness H&P Date: 03/10/17 Chief Complaint: Severe abdominal pain. This is a 71 Year-Old female with a previous medical history significant for hypertension and hypertensive cardiovascular disease, hyperlipidemia,diabetes mellitus type 2, abdominal aortic aneurysm , carotid artery disease, was hospitalized at [facility] for right middle lobe pneumonia and COPD exacerbation and was recently discharged around November 2016 , the patient was discharged home and came back a few days later with significant abdominal pain radiating to the back associated with nausea but no vomiting patient at that time was hospitalized under were service and she was seen and evaluated by gastroenterology as well as general surgery underwent a CT abdomen pelvis with contrast and at the same time underwent ultrasound of the gallbladder and EGD she was diagnosed with esophagitis as well as cholelithiasis underwent laparoscopic cholecystectomy and the patient was discharged home in a stable condition. 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 But this was never started because the patient has been hospitalized since the beginning of the year. Today patient came to the emergency department with the 24-hour history of increased abdominal pain that radiated in the left lower quadrant worse with ambulation, she did not have any change in her diet, she denied any recent seeds or corns or popcorn's, patient ended up coming to the ER at [facility] where she had a computed tomography scan of the abdomen that showed diverticulitis in the left sigmoid colon patient was given Levaquin and Flagyl and she was admitted to the hospital for evaluation. General surgery consultation was obtained from Dr. Garza. Review of Systems Constitutional: Reports chronic pain, Reports fatigue, Reports malaise, Reports weakness, Denies anorexia, Denies weight loss Eyes: denies blurred vision, denies bulging eye, denies decreased vision Ears: deny: decreased hearing Ears, nose, mouth and throat: Denies dental pain, Denies neck lump, Denies sore throat Breasts: absent: change in shape Cardiovascular: Denies chest pain, Denies claudication, Denies decreased exercise tolerance, Denies phlebitis, Denies rapid heart beat, Denies shortness of breath, Denies syncope Respiratory: Reports cough, Reports dyspnea, Denies congestion, Denies home oxygen, Denies sleep apnea, Denies snoring, Denies wheezing Gastrointestinal: Reports abdominal pain, Reports bloating, Reports loss of appetite, Reports nausea, Denies constipation, Denies dyspepsia, Denies early satiety, Denies excessive gas, Denies heartburn, Denies hematemesis, Denies hematochezia, Denies indigestion, Denies melena, Denies vomiting Genitourinary: Denies dysuria, Denies hematuria Menstruation: Reports postmenopausal Musculoskeletal: Denies myalgias Musculoskeletal: absent: ankle pain, ankle stiffness, ankle swelling, elbow pain , elbow stiffness, elbow swelling, foot pain, foot stiffness, foot swelling, hand pain, hand stiffness, hand swelling, hip pain, hip stiffness, hip swelling , knee pain, knee stiffness, knee swelling, shoulder pain, shoulder stiffness, shoulder swelling, wrist pain, wrist stiffness, wrist swelling Integumentary: Denies pruritus, Denies rash Neurological: Denies numbness, Denies weakness Psychiatric: Denies anxiety, Denies depression Endocrine: Denies fatigue, Denies weight change Past Medical History Past Medical History: Cancer, Diabetes Mellitus, GERD/Reflux, Hearing Disorder / Deafness, Hyperlipidemia, Hypertension, Osteoarthritis (OA), Vascular Disorder (Severe SMA stenosis status post angioplasty with stent placement at [facility] back in December 2016.) Additional Past Medical History / Comment(s): KIDNEY STONES, NEW BREAST CA/ RADIATION TO START FIRST WEEK IN DEC-2016 History of Any Multi-Drug Resistant Organisms: None Reported Past Surgical History: Section, Cholecystectomy, Hysterectomy Additional Past Surgical History / Comment(s): LEFT BREAST BIOPSY R/T POSITIVE MAMMOGRAM/lumpectomy/angiogram with the celiac trunk dilatation with stent placement of the SMA. Past Anesthesia/Blood Transfusion Reactions: No Reported Reaction Past Psychological History: No Psychological Hx Reported Smoking Status: Former smoker Past Alcohol Use History: None Reported Past Drug Use History: None Reported - Past Family History Brother(s) Family Medical History: Congestive Heart Failure (CHF), Myocardial Infarction ( [place]) (patient has 15 brothers and sisters 2 brothers from [place].) Mother Additional Family Medical History / Comment(s): BREAST CANCER WITH METS TO LIVER AND BODY Father Family Medical History: CVA/TIA (Father from CVA.) Daughter(s) Family Medical History: No Reported History (patient has 5 children one daughter with a pacemaker.) Medications and Allergies Home Medications Medication Instructions Recorded Confirmed Type Enalapril [Vasotec] 5 mg PO DAILY 01/06/15 03/10/17 History Isosorbide Mononitrate ER [Imdur] 30 mg PO DAILY 01/06/15 03/10/17 History Albuterol Inhaler [Ventolin Hfa 2 puff INHALATION RT-Q4H PRN 12/09/16 03/10/17 History Inhaler] Fluticasone Nasal [place] [Flonase 1 spr EA NOSTRIL DAILY PRN 12/09/16 03/10/17 History Nasal [place]] Insulin Aspart [NovoLOG] 20 unit SQ AC-TID MDD MAX 90 UNITS 12/09/16 03/10/17 History TOTAL Insulin Aspart [NovoLOG] See Protocol SQ AC-TID MDD MAX 90 12/09/16 03/10/17 History UNITS TOTAL Insulin Glargine,Hum.rec.anlog 70 units SQ HS 12/09/16 03/10/17 History [Tonaz Solostkrishna] Atenolol 25 mg PO DAILY 12/18/16 03/10/17 History Aspirin EC [Ecotrin Low Dose] 81 mg PO DAILY 03/10/17 03/10/17 History Atorvastatin [Lipitor] 40 mg PO HS 03/10/17 03/10/17 History Clopidogrel [Plavix] 75 mg PO DAILY 03/10/17 03/10/17 History Allergies Allergy/AdvReac Type Severity Reaction Status Date / Time azithromycin Allergy Rash/Hives Verified 03/10/17 12:35 Physical Exam Vitals: Vital Signs Temp Pulse Resp BP Pulse Ox 03/10/17 09:03 98.5 F 100 16 178/72 95 Intake and Output 03/09/17 03/10/17 03/10/17 22:59 06:59 14:59 Other: Weight 77.564 kg Patient Weight 03/11/17 06:59 Weight 77.564 kg - Constitutional General appearance: average body habitus, mild distress - EENT Eyes: anicteric sclerae, EOMI, PERRLA, no ptosis, no scleral icterus, normal appearance ENT: normal oropharynx, no thrush, no tonsillar exudates Ears: bilateral: normal - Neck Neck: no lymphadenopathy, normal ROM, no rigidity, no thyromegaly Carotids: bilateral: upstroke delayed Thyroid: bilateral: normal size - Respiratory Respiratory: bilateral: diminished, prolonged expiration, negative: dullness, rales, rhonchi, wheezing - Cardiovascular Rhythm: regular Heart sounds: normal: S1, S2 Abnormal Heart Sounds: systolic murmur, no S3 Gallop, no S4 Gallop, no click - Gastrointestinal General gastrointestinal: normal bowel sounds, soft, tenderness Localized gastrointestinal: tender: LLQ, guarding: LLQ - Integumentary Integumentary: normal, normal turgor, rash (Psoriasis patches on both lower extremities.) - Neurologic Neurologic: CNII-XII intact - Musculoskeletal Musculoskeletal: gait normal, generalized weakness - Psychiatric Psychiatric: A&O x's 3, appropriate affect, intact judgment & insight Results CBC & Chem 7: 03/10/17 10:10 03/10/17 10:10 Labs: Abnormal Lab Results - Last 24 Hours (Table) 03/10/17 03/10/17 03/10/17 Range/Units 10:10 10:10 10:10 WBC 13.0 H (3.8-10.6) k/uL Neutrophils # 9.2 H (1.3-7.7) k/uL APTT (22.0-30.0) sec Carbon Dioxide 31 H (22-30) mmol/L Glucose 178 H (74-99) mg/dL Plasma Lactic Acid Gerald 2.6 H* (0.7-2.0) mmol/L Alkaline Phosphatase 142 H (38-126) U/L 03/10/17 Range/Units 10:14 WBC (3.8-10.6) k/uL Neutrophils # (1.3-7.7) k/uL APTT 21.2 L (22.0-30.0) sec Carbon Dioxide (22-30) mmol/L Glucose (74-99) mg/dL Plasma Lactic Acid Gerald (0.7-2.0) mmol/L Alkaline Phosphatase (38-126) U/L Thrombosis Risk Factor Assmnt - DVT/VTE Prophylaxis DVT/VTE Prophylaxis: Pharmacologic Prophylaxis ordered, Mechanical Prophylaxis ordered Assessment and Plan Plan: Assessment and plan: 1. Acute diverticulitis of the sigmoid colon. Start the patient on Levaquin 500 mg IV piggyback every 24 hours, Flagyl 500 mg IV piggyback every 8 hours, [place] 5/325 mg 1 tablet every 4 hours as needed, patient is refusing Dilaudid and morphine at this time, Zofran 4 mg IV push every 4 hours, clear liquid diet , general surgery consultation from . 2. 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 Continue aspirin 81 mg once every day, Plavix 75 mg orally once every day, continue Imdur 30 mg orally once every day. 3. Diabetes Mellitus type 2. will continue Toujeo 70 units subcutaneously qhs and Humalog per SSI,BGM tid. 4. Hypertension. will continue with Atenolol 25 mg orally daily and Vasotec 5 mg orally daily. 5. Hyperlipidemia. low cholesterol diet. Continue Lipitor 40 mg orally once every day. 6. Breast cancer post left lumpectomy. Still need for ablation therapy. 7. Allergic Rhinitis. will continue with Flonase nasal spray bid. 8. DVT prophylaxis. continue with heparin 5000 units SC q 12 h. 9. GI prophylaxis. continue with PPI. 10. Full code.
[2017-03-10] MEDS ORDERED: ALBUTEROL NEBULIZED 2.5 MG/3 ML INHALATION PRN (15:28)
[2017-03-10] MEDS ORDERED: FLUTICASONE 50MCG/SPRAY NASAL 16GM EA NOSTRIL PRN (15:28)
[2017-03-10] MEDS: LEVOFLOXACIN 500MG-D5W PMX 500 MG in DEXTROSE/WATER 1 100ML.BAG IVPB SCH (17:17)
[2017-03-10 17:18] LABS: Glucose,Whole Blood 168 mg/dL (75-99)
[2017-03-10 17:44] VITALS: BMI 26.8
[2017-03-10] MEDS: INSULIN LISPRO (humaLOG) 300 UNIT/3 ML VIAL SQ SCH (17:50)
[2017-03-10 20:08] LABS: Glucose,Whole Blood 293 mg/dL (75-99)
[2017-03-10] MEDS: HEPARIN SODIUM,PORCINE 5,000 UNIT/ML 1 ML VIAL SQ SCH (20:15)
[2017-03-10] MEDS: ATORVASTATIN 40 MG TAB PO SCH (20:15)
[2017-03-10] MEDS: INSULIN GLARGINE 100 UNIT/ML 10 ML VIAL SQ SCH (20:16)
[2017-03-10] MEDS: ATENOLOL 25 MG TAB PO SCH (22:08)
[2017-03-10] MEDS: LISINOPRIL 10 MG TAB PO SCH (22:08)
[2017-03-10] MEDS: metroNIDAZOLE-NS PMX 500 MG in SALINE 1 100ML.BAG IVPB SCH (23:25)
[2017-03-11 07:24] LABS: Glucose,Whole Blood 149 mg/dL (75-99)
[2017-03-11] MEDS: CLOPIDOGREL 75 MG TAB PO SCH (08:12)
[2017-03-11] MEDS: INSULIN LISPRO (humaLOG) 300 UNIT/3 ML VIAL SQ SCH ×3 (08:12→17:37)
[2017-03-11] MEDS: LISINOPRIL 10 MG TAB PO SCH (08:12)
[2017-03-11] MEDS: ISOSORBIDE MONONITRATE ER 30 MG TAB.ER.24H PO SCH (08:12)
[2017-03-11] MEDS: ASPIRIN 81 MG CHEW PO SCH (08:12)
[2017-03-11] MEDS: ATENOLOL 25 MG TAB PO SCH (08:12)
[2017-03-11] MEDS: HEPARIN SODIUM,PORCINE 5,000 UNIT/ML 1 ML VIAL SQ SCH ×2 (08:12→20:51)
[2017-03-11 08:13] LABS: ALT 33 U/L (9-52); AST 19 U/L (14-36); Alkaline Phosphatase 104 U/L (38-126); Anion Gap 5 mmol/L; Blood Urea Nitrogen 13 mg/dL (7-17); Calcium 8.8 mg/dL (8.4-10.2); Carbon Dioxide 29 mmol/L (22-30); Chloride 105 mmol/L (98-107); Glucose 153 mg/dL (74-99); Non-African American GFR(MDRD) >60 (>60 ml/min/1.73 sqM); Potassium 4.4 mmol/L (3.5-5.1); Sodium 139 mmol/L (137-145); Total Bilirubin 0.7 mg/dL (0.2-1.3)
[2017-03-11 08:15] LABS: Basophils % (A) 0 %; CH 28.1; CHCM 32.4; Eosinophils # (A) 0.3 k/uL (0-0.7); Eosinophils % (A) 5 %; HCT 34.3 % (34.0-46.0); HDW 3.33; HGB 11.1 gm/dL (11.4-16.0); Hypochromasia Slight; Luc # (Auto) 0.18; Luc % (Auto) 2; Lymphocytes # (A) 1.7 k/uL (1.0-4.8); Lymphocytes % (A) 23 %; MCH 28.3 pg (25.0-35.0); MCHC 32.4 g/dL (31.0-37.0); MCV 87.2 fL (80.0-100.0); Mean Platelet Volume 7.4; Monocytes # (A) 0.4 k/uL (0-1.0); Monocytes % (A) 6 %; Neutrophils # (A) 4.8 k/uL (1.3-7.7); Neutrophils % (A) 64 %; RBC 3.93 m/uL (3.80-5.40); RDW 13.8 % (11.5-15.5); WBC 7.5 k/uL (3.8-10.6); WBC (Perox) 8.05
[2017-03-11] MEDS: metroNIDAZOLE-NS PMX 500 MG in SALINE 1 100ML.BAG IVPB SCH ×3 (08:16→23:00)
--- NOTE | 2017-03-11 09:55 | P.PN ---
Subjective This is a 71 Year-Old female with a previous medical history significant for hypertension and hypertensive cardiovascular disease, hyperlipidemia,diabetes mellitus type 2, abdominal aortic aneurysm , carotid artery disease, was hospitalized at [facility] for right middle lobe pneumonia and COPD exacerbation and was recently discharged around November 2016 , the patient was discharged home and came back a few days later with significant abdominal pain radiating to the back associated with nausea but no vomiting patient at that time was hospitalized under were service and she was seen and evaluated by gastroenterology as well as general surgery underwent a CT abdomen pelvis with contrast and at the same time underwent ultrasound of the gallbladder and EGD she was diagnosed with esophagitis as well as cholelithiasis underwent laparoscopic cholecystectomy and the patient was discharged home in a stable condition. 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 But this was never started because the patient has been hospitalized since the beginning of the year. Today patient came to the emergency department with the 24-hour history of increased abdominal pain that radiated in the left lower quadrant worse with ambulation, she did not have any change in her diet, she denied any recent seeds or corns or popcorn's, patient ended up coming to the ER at [facility] where she had a computed tomography scan of the abdomen that showed diverticulitis in the left sigmoid colon patient was given Levaquin and Flagyl and she was admitted to the hospital for evaluation. General surgery consultation was obtained from Dr. Garza. 03/11: feels better today and is tolerating her clear liquids will continue for another day then will start ull liquid,heplock IV. Objective - Vital Signs Vital signs: Vital Signs Temp 97.5 F L 03/11/17 07:00 Pulse 71 03/11/17 07:00 Resp 18 03/11/17 07:00 BP 142/67 03/11/17 07:00 Pulse Ox 94 L 03/11/17 07:00 Intake & Output 03/10/17 03/11/17 03/11/17 18:59 06:59 18:59 Intake Total 1180 Balance 1180 Weight 77.7 kg Intake: Oral 1180 Other: Voiding Method Toilet # Voids 1 - Exam - Constitutional General appearance: average body habitus, mild distress - EENT Eyes: anicteric sclerae, EOMI, PERRLA, no ptosis, no scleral icterus, normal appearance ENT: normal oropharynx, no thrush, no tonsillar exudates Ears: bilateral: normal - Neck Neck: no lymphadenopathy, normal ROM, no rigidity, no thyromegaly Carotids: bilateral: upstroke delayed Thyroid: bilateral: normal size - Respiratory Respiratory: bilateral: diminished, prolonged expiration, negative: dullness, rales, rhonchi, wheezing - Cardiovascular Rhythm: regular Heart sounds: normal: S1, S2 Abnormal Heart Sounds: systolic murmur, no S3 Gallop, no S4 Gallop, no click - Gastrointestinal General gastrointestinal: normal bowel sounds, soft, tenderness Localized gastrointestinal: tender: LLQ, guarding: LLQ - Integumentary Integumentary: normal, normal turgor, rash (Psoriasis patches on both lower extremities.) - Neurologic Neurologic: CNII-XII intact - Musculoskeletal Musculoskeletal: gait normal, generalized weakness - Psychiatric Psychiatric: A&O x's 3, appropriate affect, intact judgment & insight - Labs CBC & Chem 7: 03/11/17 07:28 03/11/17 07:28 Labs: Abnormal Lab Results - Last 24 Hours (Table) 03/10/17 03/10/17 03/11/17 Range/Units 17:12 20:07 07:20 Hgb (11.4-16.0) gm/dL Glucose (74-99) mg/dL POC Glucose (mg/dL) 168 H 293 H 149 H (75-99) mg/dL Total Protein (6.3-8.2) g/dL Albumin (3.5-5.0) g/dL 03/11/17 03/11/17 Range/Units 07:28 07:28 Hgb 11.1 L (11.4-16.0) gm/dL Glucose 153 H (74-99) mg/dL POC Glucose (mg/dL) (75-99) mg/dL Total Protein 6.0 L (6.3-8.2) g/dL Albumin 3.2 L (3.5-5.0) g/dL Assessment and Plan Plan: Assessment and plan: 1. Acute diverticulitis of the sigmoid colon. Start the patient on Levaquin 500 mg IV piggyback every 24 hours, Flagyl 500 mg IV piggyback every 8 hours, [place] 5/325 mg 1 tablet every 4 hours as needed, patient is refusing Dilaudid and morphine at this time, Zofran 4 mg IV push every 4 hours, clear liquid diet , general surgery consultation from . 2. 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 Continue aspirin 81 mg once every day, Plavix 75 mg orally once every day, continue Imdur 30 mg orally once every day. 3. Diabetes Mellitus type 2. will continue Toujeo 70 units subcutaneously qhs and Humalog per SSI,BGM tid. 4. Hypertension. will continue with Atenolol 25 mg orally daily and Vasotec 5 mg orally daily. 5. Hyperlipidemia. low cholesterol diet. Continue Lipitor 40 mg orally once every day. 6. Breast cancer post left lumpectomy. Still need for ablation therapy. 7. Allergic Rhinitis. will continue with Flonase nasal spray bid. 8. DVT prophylaxis. continue with heparin 5000 units SC q 12 h. 9. GI prophylaxis. continue with PPI. 10. Full code.
[2017-03-11 11:28] LABS: Glucose,Whole Blood 309 mg/dL (75-99)
[2017-03-11 17:23] LABS: Glucose,Whole Blood 153 mg/dL (75-99)
[2017-03-11] MEDS: LEVOFLOXACIN 500MG-D5W PMX 500 MG in DEXTROSE/WATER 1 100ML.BAG IVPB SCH (17:37)
[2017-03-11 20:34] LABS: Glucose,Whole Blood 123 mg/dL (75-99)
[2017-03-11] MEDS: INSULIN GLARGINE 100 UNIT/ML 10 ML VIAL SQ SCH (20:50)
[2017-03-11] MEDS: ATORVASTATIN 40 MG TAB PO SCH (20:50)
[2017-03-12 07:05] LABS: Glucose,Whole Blood 163 mg/dL (75-99)
[2017-03-12 07:25] VITALS: BP 171/74; PULSE 78; RESP 18; TEMP 97.5
[2017-03-12 08:04] LABS: Basophils % (A) 0 %; CH 27.7; CHCM 31.8; Eosinophils # (A) 0.4 k/uL (0-0.7); Eosinophils % (A) 6 %; HCT 34.8 % (34.0-46.0); HDW 3.28; HGB 11.4 gm/dL (11.4-16.0); Hypochromasia Slight; Luc # (Auto) 0.12; Luc % (Auto) 2; Lymphocytes # (A) 1.4 k/uL (1.0-4.8); Lymphocytes % (A) 22 %; MCH 28.6 pg (25.0-35.0); MCHC 32.7 g/dL (31.0-37.0); MCV 87.6 fL (80.0-100.0); Mean Platelet Volume 7.4; Monocytes # (A) 0.4 k/uL (0-1.0); Monocytes % (A) 6 %; Neutrophils % (A) 65 %; RBC 3.98 m/uL (3.80-5.40); RDW 13.5 % (11.5-15.5); WBC 6.2 k/uL (3.8-10.6)
[2017-03-12] MEDS: CLOPIDOGREL 75 MG TAB PO SCH (08:12)
[2017-03-12] MEDS: ATENOLOL 25 MG TAB PO SCH (08:12)
[2017-03-12] MEDS: HEPARIN SODIUM,PORCINE 5,000 UNIT/ML 1 ML VIAL SQ SCH (08:12)
[2017-03-12] MEDS: INSULIN LISPRO (humaLOG) 300 UNIT/3 ML VIAL SQ SCH ×3 (08:12→12:02)
[2017-03-12] MEDS: metroNIDAZOLE-NS PMX 500 MG in SALINE 1 100ML.BAG IVPB SCH (08:12)
[2017-03-12] MEDS: ASPIRIN 81 MG CHEW PO SCH (08:12)
[2017-03-12 08:13] LABS: ALT 27 U/L (9-52); AST 22 U/L (14-36); Alkaline Phosphatase 94 U/L (38-126); Anion Gap 9 mmol/L; Blood Urea Nitrogen 13 mg/dL (7-17); Calcium 8.8 mg/dL (8.4-10.2); Carbon Dioxide 24 mmol/L (22-30); Chloride 107 mmol/L (98-107); Glucose 152 mg/dL (74-99); Non-African American GFR(MDRD) 59 (>60 ml/min/1.73 sqM); Potassium 4.5 mmol/L (3.5-5.1); Sodium 140 mmol/L (137-145); Total Bilirubin 0.6 mg/dL (0.2-1.3)
[2017-03-12] MEDS: LISINOPRIL 10 MG TAB PO SCH (08:13)
[2017-03-12] MEDS: ISOSORBIDE MONONITRATE ER 30 MG TAB.ER.24H PO SCH (08:13)
[2017-03-12 11:34] LABS: Glucose,Whole Blood 248 mg/dL (75-99)
--- NOTE | 2017-03-13 14:50 | P.DS ---
Providers Date of admission: 03/10/17 14:05 Expected date of discharge: 03/12/17 Attending physician: Gregory Grider Primary care physician: [facility] Heart Course: This is a 71 Year-Old female with a previous medical history significant for hypertension and hypertensive cardiovascular disease, hyperlipidemia,diabetes mellitus type 2, abdominal aortic aneurysm , carotid artery disease, was hospitalized at [facility] for right middle lobe pneumonia and COPD exacerbation and was recently discharged around November 2016 , the patient was discharged home and came back a few days later with significant abdominal pain radiating to the back associated with nausea but no vomiting patient at that time was hospitalized under were service and she was seen and evaluated by gastroenterology as well as general surgery underwent a CT abdomen pelvis with contrast and at the same time underwent ultrasound of the gallbladder and EGD she was diagnosed with esophagitis as well as cholelithiasis underwent laparoscopic cholecystectomy and the patient was discharged home in a stable condition. 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 But this was never started because the patient has been hospitalized since the beginning of the year. Today patient came to the emergency department with the 24-hour history of increased abdominal pain that radiated in the left lower quadrant worse with ambulation, she did not have any change in her diet, she denied any recent seeds or corns or popcorn's, patient ended up coming to the ER at [facility] where she had a computed tomography scan of the abdomen that showed diverticulitis in the left sigmoid colon patient was given Levaquin and Flagyl and she was admitted to the hospital for evaluation. General surgery consultation was obtained from Dr. Garza. 03/11: feels better today and is tolerating her clear liquids will continue for another day then will start ull liquid,heplock IV. 03/12: Patient is tolerating clear liquids and is tired of eating this for which she was advanced to full liquids and tolerated this as well. Patient is anxious to be discharged home. Patient will be discharged home today in stable condition. Discharge Diagnoses: 1. Acute diverticulitis of the sigmoid colon. 2. 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 3. Diabetes Mellitus type 2. 4. Hypertension. 5. Hyperlipidemia. l 6. Breast cancer post left lumpectomy. 7. Allergic Rhinitis Discharge plan: Home Impression and plan of care have been directed as dictated by the signing physician. Sanam Dow nurse practitioner acting as scribe for signing physician. Patient Condition at Discharge: Good Plan - Discharge Summary New Discharge Prescriptions: Levofloxacin [Levaquin] 500 mg PO DAILY #10 tab metroNIDAZOLE [Flagyl] 500 mg PO TID #30 tab Discharge Medication List Enalapril [Vasotec] 5 mg PO DAILY 01/06/15 [History] Isosorbide Mononitrate ER [Imdur] 30 mg PO DAILY 01/06/15 [History] Albuterol Inhaler [Ventolin Hfa Inhaler] 2 puff INHALATION RT-Q4H PRN 12/09/16 [ History] Fluticasone Nasal [place] [Flonase Nasal [place]] 1 spr EA NOSTRIL DAILY PRN [History] Insulin Aspart [NovoLOG] 20 unit SQ AC-TID MDD MAX 90 UNITS TOTAL 12/09/16 [ History] Insulin Aspart [NovoLOG] See Protocol SQ AC-TID MDD MAX 90 UNITS TOTAL 12/09/16 [History] Insulin Glargine,Hum.rec.anlog [Toujeo Solostar] 70 units SQ HS 12/09/16 [ History] Atenolol 25 mg PO DAILY 12/18/16 [History] Aspirin EC [Ecotrin Low Dose] 81 mg PO DAILY 03/10/17 [History] Atorvastatin [Lipitor] 40 mg PO HS 03/10/17 [History] Clopidogrel [Plavix] 75 mg PO DAILY 03/10/17 [History] Levofloxacin [Levaquin] 500 mg PO DAILY #10 tab 03/12/17 [Rx] metroNIDAZOLE [Flagyl] 500 mg PO TID #30 tab 03/12/17 [Rx] Follow up Appointment(s)/Referral(s): Tyrell Woodruff MD [Primary Care Provider] - 04/20/17 (pt says shes going to see a practitioner in [facility] on April [address] Woodruff has left his practice ) Patient Instructions/Handouts: Diverticulitis (DC) Discharge Disposition: HOME SELF-CARE
== END 2017-03-12 14:40 | disposition home or self-care (01) | DRG 392 ==
LOC: EC 08:58 → 5MS5E 14:05
PROVIDERS: ADMIT Internal Medicine Geriatric Medicine; ATTEND Internal Medicine Geriatric Medicine
DX: K57.32 Diverticulitis of large intestine without perforation or abscess without bleeding (principal); J44.9 Chronic obstructive pulmonary disease, unspecified; I11.9 Hypertensive heart disease without heart failure; C50.912 Malignant neoplasm of unspecified site of left female breast; E11.9 Type 2 diabetes mellitus without complications; E78.5 Hyperlipidemia, unspecified; K21.0 Gastro-esophageal reflux disease with esophagitis; R01.1 Cardiac murmur, unspecified; R53.1 Weakness; I71.4 Abdominal aortic aneurysm, without rupture; M19.90 Unspecified osteoarthritis, unspecified site; L40.9 Psoriasis, unspecified; J30.9 Allergic rhinitis, unspecified; H91.90 Unspecified hearing loss, unspecified ear; R11.0 Nausea; Z87.891 Personal history of nicotine dependence; Z82.49 Family history of ischemic heart disease and other diseases of the circulatory system; Z82.3 Family history of stroke; Z80.3 Family history of malignant neoplasm of breast; Z79.899 Other long term (current) drug therapy; Z79.4 Long term (current) use of insulin; Z87.442 Personal history of urinary calculi; Z79.82 Long term (current) use of aspirin; Z79.02 Long term (current) use of antithrombotics/antiplatelets; Z88.1 Allergy status to other antibiotic agents; Z87.01 Personal history of pneumonia (recurrent); Z87.19 Personal history of other diseases of the digestive system; Z79.51 Long term (current) use of inhaled steroids; Z78.0 Asymptomatic menopausal state; Z90.49 Acquired absence of other specified parts of digestive tract; Z90.710 Acquired absence of both cervix and uterus; Z90.12 Acquired absence of left breast and nipple; Z86.79 Personal history of other diseases of the circulatory system
CPT/HCPCS: 36415; 74000; 74177; 80053; 81001; 82150; 83605; 83690; 85025; 85610; 85730

== ENCOUNTER 2017-08-15 09:31 | Observation (INO) | payer MEDICARE ==
[2017-08-15] MEDS ORDERED: NITROGLYCERIN OINT 1 INCH/GM PACKET TOPICAL STA (10:01)
[2017-08-15] MEDS ORDERED: ASPIRIN 81 MG PO STA (10:01)
--- NOTE | 2017-08-15 10:05 | ED ---
General Adult HPI - General Chief complaint: Chest Pain Stated complaint: Sent by Sachs/Abnormal EKG Time Seen by Provider: 08/15/17 09:50 Source: patient, RN notes reviewed Mode of arrival: wheelchair Limitations: no limitations - History of Present Illness Initial comments: Patient is a pleasant 71-year-old female presenting to the emergency department from primary care physician office. Patient states she has had some episodes of chest discomfort over the past week, none at this time. Patient has had some shortness of breath, especially with exertion. Patient has been fatigued. Primary care physician had concern with EKG and sent the patient to the emergency department. Patient is symptom-free in bed at this time. - Related Data Home Medications Medication Instructions Recorded Confirmed Enalapril [Vasotec] 5 mg PO DAILY 01/06/15 08/15/17 Isosorbide Mononitrate ER [Imdur] 30 mg PO DAILY 01/06/15 08/15/17 Insulin Aspart [NovoLOG] 20 unit SQ AC-TID 12/09/16 08/15/17 Insulin Glargine,Hum.rec.anlog 70 units SQ HS 12/09/16 08/15/17 [Toujeo Solostar] Atenolol 25 mg PO DAILY 12/18/16 08/15/17 Atorvastatin [Lipitor] 40 mg PO HS 03/10/17 08/15/17 Clopidogrel [Plavix] 75 mg PO DAILY 03/10/17 08/15/17 Allergies Allergy/AdvReac Type Severity Reaction Status Date / Time azithromycin Allergy Rash/Hives Verified 08/15/17 09:37 Review of Systems ROS Statement: Those systems with pertinent positive or pertinent negative responses have been documented in the HPI. ROS Other: All systems not noted in ROS Statement are negative. Constitutional: Denies: fever Eyes: Denies: eye pain ENT: Denies: ear pain Respiratory: Reports: dyspnea Cardiovascular: Reports: chest pain Endocrine: Reports: fatigue Gastrointestinal: Denies: abdominal pain Genitourinary: Denies: dysuria Musculoskeletal: Denies: back pain Skin: Denies: rash Neurological: Denies: weakness Past Medical History Past Medical History: Cancer, Diabetes Mellitus, GERD/Reflux, Hearing Disorder / Deafness, Hyperlipidemia, Hypertension, Osteoarthritis (OA), Vascular Disorder Additional Past Medical History / Comment(s): KIDNEY STONES, NEW BREAST CA/ RADIATION TO START FIRST WEEK IN DEC-2016 History of Any Multi-Drug Resistant Organisms: None Reported Past Surgical History: Section, Cholecystectomy, Hysterectomy Additional Past Surgical History / Comment(s): LEFT BREAST BIOPSY R/T POSITIVE MAMMOGRAM/lumpectomy/angiogram with the celiac trunk dilatation with stent placement of the SMA. Past Anesthesia/Blood Transfusion Reactions: No Reported Reaction Past Psychological History: No Psychological Hx Reported Smoking Status: Former smoker Past Alcohol Use History: None Reported Past Drug Use History: None Reported - Past Family History Brother(s) Family Medical History: Congestive Heart Failure (CHF), Myocardial Infarction ( [place]) Mother Additional Family Medical History / Comment(s): BREAST CANCER WITH METS TO LIVER AND BODY Father Family Medical History: CVA/TIA Daughter(s) Family Medical History: No Reported History General Exam Limitations: no limitations General appearance: alert Head exam: Present: atraumatic Eye exam: Present: normal appearance ENT exam: Present: normal oropharynx Neck exam: Present: normal inspection Respiratory exam: Present: normal lung sounds bilaterally Cardiovascular Exam: Present: regular rate, normal rhythm Expanded Peripheral pulses: 2+: Radial (R), Radial (L), Dorsalis Pedis (R), Dorsalis Pedis (L) GI/Abdominal exam: Present: soft. Absent: tenderness Extremities exam: Present: pedal edema (+1 bilateral). Absent: calf tenderness Neurological exam: Present: alert Psychiatric exam: Present: normal affect, normal mood Skin exam: Present: erythema (Bilateral anterior shins and dorsal feet which patient states is chronic from her psoriasis.) Course Vital Signs 08/15/17 08/15/17 09:33 10:37 Temperature 97 F L Pulse Rate 76 75 Respiratory 18 18 Rate Blood Pressure 141/64 103/42 O2 Sat by Pulse 96 100 Oximetry EKG Findings - EKG Comments: EKG Findings:: Normal sinus rhythm 76. GA 180. QRS 94. QT 400. QTc 450. Normal axis. Normal QRS. T wave inversion in V4 through V6. Old EKG reviewed dated 01/01/2017. Medical Decision Making - Medical Decision Making Patient reevaluated and resting comfortably in bed. Patient and family updated on results and plan. Case discussed in detail with Dr. Gamez, who will admit for Dr. Lewis. - Lab Data Result diagrams: 08/15/17 09:51 08/15/17 09:51 Lab Results 08/15/17 08/15/17 08/15/17 Range/Units 09:51 09:51 09:51 WBC 11.7 H (3.8-10.6) k/uL RBC 4.37 (3.80-5.40) m/uL Hgb 11.4 (11.4-16.0) gm/dL Hct 36.6 (34.0-46.0) % MCV 83.7 (80.0-100.0) fL MCH 26.1 (25.0-35.0) pg MCHC 31.2 (31.0-37.0) g/dL RDW 15.2 (11.5-15.5) % Plt Count 278 (150-450) k/uL Neutrophils % 76 % Lymphocytes % 14 % Monocytes % 5 % Eosinophils % 4 % Basophils % 0 % Neutrophils # 8.9 H (1.3-7.7) k/uL Lymphocytes # 1.7 (1.0-4.8) k/uL Monocytes # 0.6 (0-1.0) k/uL Eosinophils # 0.4 (0-0.7) k/uL Basophils # 0.0 (0-0.2) k/uL Hypochromasia Moderate PT (9.0-12.0) sec INR (<1.2) APTT (22.0-30.0) sec Sodium 139 (137-145) mmol/L Potassium 5.2 H (3.5-5.1) mmol/L Chloride 100 (98-107) mmol/L Carbon Dioxide 26 (22-30) mmol/L Anion Gap 13 mmol/L BUN 18 H (7-17) mg/dL Creatinine 0.96 (0.52-1.04) mg/dL Est GFR (MDRD) Af Amer >60 (>60 ml/min/1.73 sqM) Est GFR (MDRD) Non-Af 57 (>60 ml/min/1.73 sqM) Glucose 256 H (74-99) mg/dL Calcium 9.2 (8.4-10.2) mg/dL Magnesium 1.6 (1.6-2.3) mg/dL Total Bilirubin 0.6 (0.2-1.3) mg/dL AST 38 H (14-36) U/L ALT 18 (9-52) U/L Alkaline Phosphatase 137 H (38-126) U/L Total Creatine Kinase 85 (30-135) U/L CK-MB (CK-2) 2.7 H* (0.0-2.4) ng/mL CK-MB (CK-2) Rel Index 3.2 Troponin I 0.015 (0.000-0.034) ng/mL NT-Pro-B Natriuret Pep pg/mL Total Protein 6.7 (6.3-8.2) g/dL Albumin 3.6 (3.5-5.0) g/dL 08/15/17 08/15/17 Range/Units 09:51 09:51 WBC (3.8-10.6) k/uL RBC (3.80-5.40) m/uL Hgb (11.4-16.0) gm/dL Hct (34.0-46.0) % MCV (80.0-100.0) fL MCH (25.0-35.0) pg MCHC (31.0-37.0) g/dL RDW (11.5-15.5) % Plt Count (150-450) k/uL Neutrophils % % Lymphocytes % % Monocytes % % Eosinophils % % Basophils % % Neutrophils # (1.3-7.7) k/uL Lymphocytes # (1.0-4.8) k/uL Monocytes # (0-1.0) k/uL Eosinophils # (0-0.7) k/uL Basophils # (0-0.2) k/uL Hypochromasia PT 10.2 (9.0-12.0) sec INR 1.0 (<1.2) APTT 18.1 L (22.0-30.0) sec Sodium (137-145) mmol/L Potassium (3.5-5.1) mmol/L Chloride (98-107) mmol/L Carbon Dioxide (22-30) mmol/L Anion Gap mmol/L BUN (7-17) mg/dL Creatinine (0.52-1.04) mg/dL Est GFR (MDRD) Af Amer (>60 ml/min/1.73 sqM) Est GFR (MDRD) Non-Af (>60 ml/min/1.73 sqM) Glucose (74-99) mg/dL Calcium (8.4-10.2) mg/dL Magnesium (1.6-2.3) mg/dL Total Bilirubin (0.2-1.3) mg/dL AST (14-36) U/L ALT (9-52) U/L Alkaline Phosphatase (38-126) U/L Total Creatine Kinase (30-135) U/L CK-MB (CK-2) (0.0-2.4) ng/mL CK-MB (CK-2) Rel Index Troponin I (0.000-0.034) ng/mL NT-Pro-B Natriuret Pep 392 pg/mL Total Protein (6.3-8.2) g/dL Albumin (3.5-5.0) g/dL - Radiology Data Radiology results: image reviewed (Chest x-ray shows chronic changes without acute process) Disposition Clinical Impression: Unstable angina pectoris Disposition: ADMITTED IP TO THIS HOSP Referrals: Rusty Lweis MD [Primary Care Provider] - 1-2 days Decision Time: 11:51
[2017-08-15 10:15] LABS: Basophils % (A) 0 %; CH 25.9; CHCM 31.1; Eosinophils # (A) 0.4 k/uL (0-0.7); Eosinophils % (A) 4 %; HCT 36.6 % (34.0-46.0); HDW 3.02; HGB 11.4 gm/dL (11.4-16.0); Hypochromasia Moderate; Luc # (Auto) 0.09; Luc % (Auto) 1; Lymphocytes # (A) 1.7 k/uL (1.0-4.8); Lymphocytes % (A) 14 %; MCH 26.1 pg (25.0-35.0); MCHC 31.2 g/dL (31.0-37.0); MCV 83.7 fL (80.0-100.0); Mean Platelet Volume 8.3; Monocytes # (A) 0.6 k/uL (0-1.0); Monocytes % (A) 5 %; Neutrophils # (A) 8.9 k/uL (1.3-7.7); Neutrophils % (A) 76 %; RBC 4.37 m/uL (3.80-5.40); RDW 15.2 % (11.5-15.5); WBC 11.7 k/uL (3.8-10.6); WBC (Perox) 12.39
--- NOTE | 2017-08-15 10:29 | XR ---
EXAMINATION TYPE: XR chest 2V DATE OF EXAM: 08/15/2017 COMPARISON: Chest x-ray December 17, 2016. CTA chest December 09, 2016. HISTORY: Chest pain and abnormal EKG at 's office. TECHNIQUE: Frontal and lateral views of the chest are obtained. FINDINGS: There is some chronic emphysematous change without new suspicious focal air space opacity, pleural effusion, or pneumothorax seen. There is right medial basilar scarring redemonstrated. The c ardiac silhouette size is stable and within normal limits with atherosclerotic thoracic aorta. The osseous structures are demineralized. IMPRESSION: Chronic changes without acute pulmonary process. No significant change from prior studie s.
[2017-08-15 10:30] LABS: ALT 18 U/L (9-52); Alkaline Phosphatase 137 U/L (38-126); Anion Gap 13 mmol/L; Blood Urea Nitrogen 18 mg/dL (7-17); Calcium 9.2 mg/dL (8.4-10.2); Carbon Dioxide 26 mmol/L (22-30); Chloride 100 mmol/L (98-107); Glucose 256 mg/dL (74-99); Magnesium 1.6 mg/dL (1.6-2.3); Non-African American GFR(MDRD) 57 (>60 ml/min/1.73 sqM); Sodium 139 mmol/L (137-145); Total Bilirubin 0.6 mg/dL (0.2-1.3); Total Protein 6.7 g/dL (6.3-8.2)
[2017-08-15 10:42] LABS: Prothrombin Time 10.2 sec (9.0-12.0)
[2017-08-15 10:44] LABS: AST 38 U/L (14-36); Potassium 5.2 mmol/L (3.5-5.1)
[2017-08-15 11:01] LABS: Troponin I 0.015 ng/mL (0.000-0.034)
[2017-08-15 11:05] LABS: Creatine Kinase MB 2.7 ng/mL (0.0-2.4)
[2017-08-15 11:12] LABS: Partial Thromboplastin Time 18.1 sec (22.0-30.0)
[2017-08-15] MEDS ORDERED: NITROGLYCERIN SL TABS 0.4 MG TAB SUBLINGUAL PRN (11:52)
[2017-08-15] MEDS ORDERED: HEPARIN SODIUM,PORCINE 5,000 UNIT/ML 1 ML VIAL IV ONE (11:52)
[2017-08-15] MEDS ORDERED: HEPARIN SODIUM,PORCINE/D5W PMX 25,000 UNIT in DEXTROSE/WATER 1 500ML.BAG IV SCH (12:00)
[2017-08-15] MEDS: NITROGLYCERIN OINT 1 INCH/GM PACKET TOPICAL SCH ×4 (12:03→23:56)
[2017-08-15 16:54] LABS: Troponin I 0.014 ng/mL (0.000-0.034)
[2017-08-15 16:57] LABS: Creatine Kinase MB 2.5 ng/mL (0.0-2.4)
[2017-08-15 17:06] LABS: Glucose,Whole Blood 169 mg/dL (75-99)
[2017-08-15] MEDS ORDERED: SODIUM POLYSTYRENE SULFONATE 15 GM/60 ML BOTTLE PO STA (19:02)
[2017-08-15] MEDS ORDERED: VANCOMYCIN IV PER PHARMACY 1 EACH MISC MISCELLANE PRN (19:14)
--- NOTE | 2017-08-15 19:30 | P.HPIM ---
History of Present Illness H&P Date: 08/15/17 Chief Complaint: Shortness of breath and lower leg swelling This is a 71 Year-Old female with a previous medical history significant for hypertension and hypertensive cardiovascular disease, hyperlipidemia, insulin-dependent diabetes mellitus type 2, abdominal aortic aneurysm , carotid artery disease, was hospitalized at [facility] for right middle lobe pneumonia and COPD exacerbation and was recently discharged around November 2016 , the patient was discharged home and came back a few days later with significant abdominal pain radiating to the back associated with nausea but no vomiting patient at that time was hospitalized under were service and she was seen and evaluated by gastroenterology as well as general surgery underwent a CT abdomen pelvis with contrast and at the same time underwent ultrasound of the gallbladder and EGD she was diagnosed with esophagitis as well as cholelithiasis underwent laparoscopic cholecystectomy and the patient was discharged home in a stable condition. 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 She was seen in February for acute diverticulitis for which patient was treated with antibiotic and sent home.patient was doing well until one week ago when she started experiencing shortness of breath associated with substernal chest pain. Patient also noticed that she was unable to do her daily activities and could not walk a few steps before getting short of breath. Patient's daughter was concerned about the worsening lower extremity edema and decided the patient should be brought to ER for assessment. Patient seen by Dr. Cai as outpatient and the antibiotic was ordered but patient did not receive antibiotic. In the ED patient had leukocytosis of 11.4, INR 1, potassium of 5.2, creatinine 0.96 with glucose of 256, CK-MB elevated with normal troponin 2, BNP of 392. Patient was admitted for management of chest pain and worsening shortness of breath. EKG was normal sinus rhythm. Cardiology was consulted and patient was admitted Review of Systems Constitutional: Reports fatigue, Reports lethargy, Denies anorexia, Denies chills, Denies chronic headaches, Denies sweats Eyes: denies bulging eye, denies diplopia, denies dry eye Ears: deny: decreased hearing Ears, nose, mouth and throat: Denies headache, Denies hoarseness, Denies neck lump, Denies nose pain, Denies swelling in mouth Cardiovascular: Reports chest pain, Reports decreased exercise tolerance, Reports dyspnea on exertion, Reports edema, Reports high blood pressure, Reports leg edema, Reports lightheadedness, Reports shortness of breath, Denies claudication, Denies irregular heart beat, Denies palpitations, Denies rapid heart beat, Denies syncope Respiratory: Reports cough (Nonproductive), Reports dyspnea Gastrointestinal: Denies abdominal pain, Denies bloating, Denies BRBPR, Denies change in bowel habits, Denies coffee ground emesis, Denies constipation, Denies early satiety, Denies heartburn, Denies hematemesis, Denies hematochezia , Denies nausea, Denies vomiting Genitourinary: Denies dysuria, Denies urgency, Denies urinary frequency, Denies vaginal discharge Musculoskeletal: Reports limitation of motion, Denies leg numbness/tingling, Denies morning stiffness, Denies muscle cramps Integumentary: Reports rash (Patient has noted significant rash on the right forearm and bilateral lower extremity which is new for her) Neurological: Denies aphasia, Denies ataxia, Denies balance difficulties, Denies loss of vision, Denies memory loss, Denies migraines, Denies motor disturbance Endocrine: Denies heat intolerance, Denies polydipsia, Denies polyphagia, Denies polyuria Past Medical History Past Medical History: Cancer, COPD, Diabetes Mellitus, GERD/Reflux, Hearing Disorder / Deafness, Hyperlipidemia, Hypertension, Osteoarthritis (OA), Pneumonia, Skin Disorder, Vascular Disorder Additional Past Medical History / Comment(s): L BREAST CANCER WITH LUMPECTOMY- WAS TO HAVE RADIATION TXS BUT HASN'T YET D/T OTHER HEALTH PROBLEMS, HOME O2 PRN , ABDOMINAL AORTIC ANEURYSM, CARATID ARTERY DISEASE, IDDM TYPE II, APACHE TRIBE OF [place] BILATERALLY, ATHRITIS MULTIPLE JOINTS, NEPHROLITHIASIS-PT PASSED STONE ON HER OWN, PSORIASIS, DIVERTICULAR DISEASE, ALLERGIC RHINITIS. History of Any Multi-Drug Resistant Organisms: None Reported Past Surgical History: Breast Surgery, Section, Cholecystectomy Additional Past Surgical History / Comment(s): LEFT BREAST BIOPSY R/T POSITIVE MAMMOGRAM/lumpectomy, angiogram with the celiac trunk dilatation with stent placement of the SMA, BILATERAL OOPHORECTOMY/SALPINGECTOMY, EGD. Past Anesthesia/Blood Transfusion Reactions: No Reported Reaction Past Psychological History: No Psychological Hx Reported Additional Psychological History / Comment(s): PT RESIDES WITH HER DAUGHTER, GREGORIO. SHE NO LONGER DRIVES BUT HER SHANNON IS ABLE TO TAKE HER TO APPTS. SHE HAS HOME OXYGEN WHICH SHE WEARS PRN. Smoking Status: Former smoker (Smokes one pack a day for 30 years) Past Alcohol Use History: None Reported Additional Past Alcohol Use History / Comment(s): PT STARTED [employer] IN 1965 AND QUIT IN 2004. Past Drug Use History: None Reported - Past Family History Brother(s) Family Medical History: Congestive Heart Failure (CHF), Myocardial Infarction ( [place]) Mother Additional Family Medical History / Comment(s): BREAST CANCER WITH METS TO LIVER AND BONES. Father Family Medical History: CVA/TIA Daughter(s) Family Medical History: No Reported History Medications and Allergies Home Medications Medication Instructions Recorded Confirmed Type Enalapril [Vasotec] 5 mg PO DAILY 01/06/15 08/15/17 History Isosorbide Mononitrate ER [Imdur] 30 mg PO DAILY 01/06/15 08/15/17 History Insulin Aspart [NovoLOG] 20 unit SQ AC-TID 12/09/16 08/15/17 History Insulin Glargine,Hum.rec.anlog 70 units SQ HS 12/09/16 08/15/17 History [Toujeo Solostar] Atenolol 25 mg PO DAILY 12/18/16 08/15/17 History Atorvastatin [Lipitor] 40 mg PO HS 03/10/17 08/15/17 History Clopidogrel [Plavix] 75 mg PO DAILY 03/10/17 08/15/17 History Allergies Allergy/AdvReac Type Severity Reaction Status Date / Time azithromycin Allergy Rash/Hives Verified 08/15/17 09:37 Physical Exam Vitals: Vital Signs Temp Pulse Pulse Resp BP BP Pulse Ox 08/15/17 16:00 78 18 08/15/17 15:31 97.6 F 78 18 131/62 99 08/15/17 14:00 76 18 08/15/17 13:34 97.4 F L 76 18 123/58 99 08/15/17 13:11 97.3 F L 76 18 112/42 100 08/15/17 12:25 75 20 116/48 100 08/15/17 12:00 72 18 125/52 100 08/15/17 11:00 74 20 114/50 100 08/15/17 10:37 75 18 103/42 100 08/15/17 09:33 97 F L 76 18 141/64 96 Intake and Output 08/15/17 08/15/17 08/15/17 06:59 14:59 22:59 Intake Total 240 Balance 240 Intake: Oral 240 Other: Voiding Method Toilet Toilet Weight 80 kg Patient Weight 08/16/17 06:59 Weight 80 kg - Constitutional General appearance: average body habitus, cooperative, no acute distress - EENT Eyes: EOMI, PERRLA, no ptosis, normal appearance Ears: bilateral: normal - Neck Neck: no lymphadenopathy, no normal ROM Carotids: bilateral: upstroke normal, bruit absent - Respiratory Respiratory: bilateral: diminished, rales, rhonchi, wheezing - Cardiovascular Rhythm: regular Heart sounds: normal: S1, S2 Abnormal Heart Sounds: no systolic murmur, no diastolic murmur leg Peripheral Edema: bilateral: 3+ (Erythema and warm to touch bilaterally) dorsalis pedis Peripheral Pulses: bilateral: Diminished - Gastrointestinal General gastrointestinal: no distended, normal bowel sounds, soft, no tenderness - Integumentary Integumentary: cellulitis (Bilateral lower extremities) - Neurologic Neurologic: CNII-XII intact - Musculoskeletal Musculoskeletal: generalized weakness, strength equal bilaterally - Psychiatric Psychiatric: A&O x's 3, appropriate affect Results CBC & Chem 7: 08/15/17 09:51 08/15/17 09:51 Labs: Abnormal Lab Results - Last 24 Hours (Table) 08/15/17 08/15/17 08/15/17 Range/Units 09:51 09:51 09:51 WBC 11.7 H (3.8-10.6) k/uL Neutrophils # 8.9 H (1.3-7.7) k/uL APTT (22.0-30.0) sec Potassium 5.2 H (3.5-5.1) mmol/L BUN 18 H (7-17) mg/dL Glucose 256 H (74-99) mg/dL POC Glucose (mg/dL) (75-99) mg/dL AST 38 H (14-36) U/L Alkaline Phosphatase 137 H (38-126) U/L CK-MB (CK-2) 2.7 H* (0.0-2.4) ng/mL 08/15/17 08/15/17 08/15/17 Range/Units 09:51 15:52 16:44 WBC (3.8-10.6) k/uL Neutrophils # (1.3-7.7) k/uL APTT 18.1 L (22.0-30.0) sec Potassium (3.5-5.1) mmol/L BUN (7-17) mg/dL Glucose (74-99) mg/dL POC Glucose (mg/dL) 169 H (75-99) mg/dL AST (14-36) U/L Alkaline Phosphatase (38-126) U/L CK-MB (CK-2) 2.5 H* (0.0-2.4) ng/mL Thrombosis Risk Factor Assmnt - Choose All That Apply Any of the Below Risk Factors Present?: Yes Each Factor Represents 1 point: Obesity (BMI >25) Other Risk Factors: Yes Each Risk Factor Represents 2 Points: Age 61-74 years, Malignancy Other congenital or acquired thrombophilia - If yes, enter type in comment: No Thrombosis Risk Factor Assessment Total Risk Factor Score: 5 Thrombosis Risk Factor Assessment Level: High Risk Assessment and Plan Plan: #1 Atypical chest pain associated with shortness of breath- troponin 2 is negative with EKG no abnormality, BNP slightly of abdominal the patient is morbidly obese and would not be appropriatly elevated. Cardiology consult to rule out ACS either via stress test or cath. ECHO ordered. Continue heparin drip overnight nothing by mouth after midnight, continue Imdur 30 mg orally once every day.Continue aspirin 81 mg once every day, Plavix 75 mg orally once every day.will continue with Atenolol 25 mg orally daily 2. Early cellulitis of lower extremity- continue vancomycin and ceftriaxone. ID consult. Lower extremity swelling could be related to the venous stasis or DVT. Ultrasound lower extremity ordered to rule out DVT 3. 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 Asymptomatic Continue aspirin 81 mg once every day, Plavix 75 mg orally once every day, continue Imdur 30 mg orally once every day. 4. Diabetes Mellitus type 2. will continue Toujeo 70 units subcutaneously qhs and Humalog per SSI,BGM tid. Toujeo 30 units and 10 unts TID with humalog while NPO 4. Hypertension. will continue with Atenolol 25 mg orally daily and Vasotec 5 mg orally daily. 5. Hyperlipidemia. low cholesterol diet. Continue Lipitor 40 mg orally once every day. 6. Breast cancer post left lumpectomy. 7. Allergic Rhinitis. asymptomatic 8. DVT prophylaxis. on heparin drip 9. GI prophylaxis. continue with PPI. 10. Full code. Time with Patient: Greater than 30
[2017-08-15 20:47] LABS: Glucose,Whole Blood 252 mg/dL (75-99)
[2017-08-15] MEDS ORDERED: INSULIN GLARGINE 100 UNIT/ML 10 ML VIAL SQ SCH (21:00)
[2017-08-15] MEDS ORDERED: ATORVASTATIN 40 MG TAB PO SCH (21:00)
[2017-08-15] MEDS ORDERED: HEPARIN SODIUM,PORCINE 5,000 UNIT/ML 1 ML VIAL SQ SCH (21:00)
[2017-08-15] MEDS: VANCOMYCIN 1,500 MG in SODIUM CHLORIDE 0.9% 250 ML IVPB SCH (21:04)
[2017-08-15] MEDS: HEPARIN SODIUM,PORCINE 5,000 UNIT/ML 1 ML VIAL IV PRN (21:13)
[2017-08-15 21:58] LABS: Creatine Kinase 70 U/L (30-135)
[2017-08-15 22:11] LABS: Troponin I <0.012 ng/mL (0.000-0.034)
[2017-08-15 22:13] LABS: Creatine Kinase MB 2.6 ng/mL (0.0-2.4)
[2017-08-16 04:01] LABS: Mean Platelet Volume 8.1
[2017-08-16 04:09] VITALS: RESP 18
[2017-08-16 04:17] LABS: Anion Gap 7 mmol/L; Blood Urea Nitrogen 19 mg/dL (7-17); Calcium 8.5 mg/dL (8.4-10.2); Carbon Dioxide 30 mmol/L (22-30); Chloride 102 mmol/L (98-107); Cholesterol 111 mg/dL (<200); Glucose 246 mg/dL (74-99); HDL Cholesterol 29 mg/dL (40-60); Non-African American GFR(MDRD) 59 (>60 ml/min/1.73 sqM); Potassium 4.5 mmol/L (3.5-5.1); Sodium 139 mmol/L (137-145)
[2017-08-16] MEDS: HEPARIN SODIUM,PORCINE 5,000 UNIT/ML 1 ML VIAL IV PRN (04:26)
[2017-08-16 06:46] LABS: Glucose,Whole Blood 218 mg/dL (75-99)
--- NOTE | 2017-08-16 07:46 | XR ---
EXAMINATION TYPE: XR chest 2V DATE OF EXAM: 08/16/2017 COMPARISON: 08/15/[address] 12/19/2016 HISTORY: 71 year-old female with shortness of breath TECHNIQUE: Frontal and lateral views FINDINGS: Heart appears normal size. Atherosclerotic arch calcifications. Hazy bibasilar opacities are appeared to relate to overlying soft tissue density. Some underlying interstitial and reticular opacities ten ting present. There may be some hyperinflation with flattening of the hemidiaphragms as well. Opacity along the right heart margin and some silhouetting of the cardiac apex appear to relate to a promine nt epicardial fat pad when correlating with prior CT. IMPRESSION: COPD with moderate underlying emphysema. Some opacities along the heart margins appear to correspond to a prominent epicardial fat pad when correlating with prior CT. No definite acute process.
[2017-08-16] MEDS ORDERED: AMINOPHYLLINE 500 MG/20 ML VIAL IV PRN (08:20)
[2017-08-16] MEDS ORDERED: REGADENOSON 0.4 MG/5 ML SYRINGE IV ONE (08:20)
[2017-08-16] MEDS: INSULIN LISPRO (humaLOG) 300 UNIT/3 ML VIAL SQ SCH ×2 (08:24→11:44)
--- NOTE | 2017-08-16 08:29 | P.CRDCN ---
History of Present Illness History of present illness: 71-year-old female who looks older than his stated age complaining of recurrent chest discomfort very nondescript, a poor historian as well as shortness of breath on exertion. She also complains of problems after a meal. She states the food gets stuck in the low part of the chest and she develops a knot in the lower chest/upper belly. She doesn't really call it pain or discomfort. She states she has to burp a lot to get rid of that knot. On examination her breath sounds are reduced bilaterally but I don't hear any obvious crackles or rhonchi. She has known mild aortic stenosis I don't have a clear-cut murmur of aortic stenosis on examination. She has redness in both lower extremities below the knee bilaterally Troponins are borderline. The ECG was abnormal with ST depression of 0.5-1 mm with asymmetric T-wave inversion but her blood pressure was also elevated at that time Labs are reviewed. electrolytes are normal, creatinine 0.94 when necessary is 19 LDL 37 on atorvastatin 40 mg by mouth daily Impression Shortness of breath with minimal activity Recurrent chest discomfort, atypical Recurrent discomfort in the lower chest/upper abdomen related to meals and she had recent stenting of the celiac artery in [facility] Adult-onset diabetes Hypertension Past history of mild aortic stenosis 2 years back detected on 2-D echo Stenting to the celiac artery within the last few months in [place] Possible early breast cancer Symptoms related to meals could represent diabetic gastropathy and gastroparesis Suggest 2-D echo and Doppler study to assess cardiac structure and function and assess the aortic valve Lexiscan cardio lyte stress test today Continue aspirin and Plavix statins Switched to lisinopril 10 mg once daily instead of Vasotec and maximize, blood pressure control Diabetes management and management of cellulitis in lower extremities the internal medicine Her white count is normal Please see dictation by nurse practitioner Past Medical History Past Medical History: Cancer, COPD, Diabetes Mellitus, GERD/Reflux, Hearing Disorder / Deafness, Hyperlipidemia, Hypertension, Osteoarthritis (OA), Pneumonia, Skin Disorder, Vascular Disorder Additional Past Medical History / Comment(s): L BREAST CANCER WITH LUMPECTOMY- WAS TO HAVE RADIATION TXS BUT HASN'T YET D/T OTHER HEALTH PROBLEMS, HOME O2 PRN , ABDOMINAL AORTIC ANEURYSM, CARATID ARTERY DISEASE, IDDM TYPE II, [place] BILATERALLY, ATHRITIS MULTIPLE JOINTS, NEPHROLITHIASIS-PT PASSED STONE ON HER OWN, PSORIASIS, DIVERTICULAR DISEASE, ALLERGIC RHINITIS. History of Any Multi-Drug Resistant Organisms: None Reported Past Surgical History: Breast Surgery, Section, Cholecystectomy Additional Past Surgical History / Comment(s): LEFT BREAST BIOPSY R/T POSITIVE MAMMOGRAM/lumpectomy, angiogram with the celiac trunk dilatation with stent placement of the SMA, BILATERAL OOPHORECTOMY/SALPINGECTOMY, EGD. Past Anesthesia/Blood Transfusion Reactions: No Reported Reaction Past Psychological History: No Psychological Hx Reported Additional Psychological History / Comment(s): PT RESIDES WITH HER DAUGHTER, GREGORIO. SHE NO LONGER DRIVES BUT HER SHANNON IS ABLE TO TAKE HER TO APPTS. SHE HAS HOME OXYGEN WHICH SHE WEARS PRN. Smoking Status: Former smoker (Smokes one pack a day for 30 years) Past Alcohol Use History: None Reported Additional Past Alcohol Use History / Comment(s): PT STARTED SMOKIN IN 1965 AND QUIT IN 2004. Past Drug Use History: None Reported - Past Family History Brother(s) Family Medical History: Congestive Heart Failure (CHF), Myocardial Infarction ( [place]) Mother Additional Family Medical History / Comment(s): BREAST CANCER WITH METS TO LIVER AND BONES. Father Family Medical History: CVA/TIA Daughter(s) Family Medical History: No Reported History Medications and Allergies Home Medications Medication Instructions Recorded Confirmed Type Enalapril [Vasotec] 5 mg PO DAILY 01/06/15 08/15/17 History Isosorbide Mononitrate ER [Imdur] 30 mg PO DAILY 01/06/15 08/15/17 History Insulin Aspart [NovoLOG] 20 unit SQ AC-TID 12/09/16 08/15/17 History Insulin Glargine,Hum.rec.anlog 70 units SQ HS 12/09/16 08/15/17 History [Toujeo Solostar] Atenolol 25 mg PO DAILY 12/18/16 08/15/17 History Atorvastatin [Lipitor] 40 mg PO HS 03/10/17 08/15/17 History Clopidogrel [Plavix] 75 mg PO DAILY 03/10/17 08/15/17 History Allergies Allergy/AdvReac Type Severity Reaction Status Date / Time azithromycin Allergy Rash/Hives Verified 08/15/17 09:37 Physical Exam Vitals: Vital Signs Temp Pulse Pulse Resp BP BP Pulse Ox 08/16/17 07:57 97.9 F 85 18 136/64 100 08/16/17 04:00 98.2 F 86 18 134/49 99 08/16/17 03:48 20 08/16/17 00:00 98.1 F 90 20 186/71 100 08/15/17 20:00 97.6 F 78 18 141/50 99 08/15/17 16:00 78 18 08/15/17 15:31 97.6 F 78 18 131/62 99 08/15/17 14:00 76 18 08/15/17 13:34 97.4 F L 76 18 123/58 99 08/15/17 13:11 97.3 F L 76 18 112/42 100 08/15/17 12:25 75 20 116/48 100 08/15/17 12:00 72 18 125/52 100 08/15/17 11:00 74 20 114/50 100 08/15/17 10:37 75 18 103/42 100 08/15/17 09:33 97 F L 76 18 141/64 96 Intake and Output 08/15/17 08/16/17 08/16/17 22:59 06:59 14:59 Intake Total 1150.253 595.02 Balance 1150.253 595.02 Intake: IV 200 Heparin Sodium,Porcine/ 200 D5w Pmx 25,000 unit In Dextrose/Water 1 500ml. bag @ 12 UNITS/KG/HR 19.1 mls/hr IV .Q24H [facility] Rx#: [id number] Intake, IV Titration 150.253 195.02 Amount Heparin Sodium,Porcine/ 150.253 195.02 D5w Pmx 25,000 unit In Dextrose/Water 1 500ml. bag @ 12 UNITS/KG/HR 19.1 mls/hr IV .Q24H [facility] Rx#: [id number] Oral 1000 200 Other: Voiding Method Toilet Toilet # Voids 1 3 # Bowel Movements 1 Results 08/16/17 03:19 08/16/17 03:19 Cardiac Enzymes 08/15/17 08/15/17 08/15/17 Range/Units 09:51 09:51 15:52 AST 38 H (14-36) U/L CK-MB (CK-2) 2.7 H* 2.5 H* (0.0-2.4) ng/mL Troponin I 0.015 0.014 (0.000-0.034) ng/mL 08/15/17 Range/Units 21:16 AST (14-36) U/L CK-MB (CK-2) 2.6 H* (0.0-2.4) ng/mL Troponin I <0.012 (0.000-0.034) ng/mL Coagulation 08/15/17 08/15/17 08/16/17 Range/Units 09:51 19:36 03:19 PT 10.2 (9.0-12.0) sec APTT 18.1 L 27.6 37.9 H (22.0-30.0) sec Lipids 08/16/17 Range/Units 03:19 Triglycerides 225 H (<150) mg/dL Cholesterol 111 (<200) mg/dL HDL Cholesterol 29 L (40-60) mg/dL CBC 08/15/17 08/16/17 Range/Units 09:51 03:19 WBC 11.7 H (3.8-10.6) k/uL RBC 4.37 (3.80-5.40) m/uL Hgb 11.4 (11.4-16.0) gm/dL Hct 36.6 (34.0-46.0) % Plt Count 278 260 (150-450) k/uL Comprehensive Metabolic Panel 08/15/17 08/16/17 Range/Units 09:51 03:19 Sodium 139 139 (137-145) mmol/L Potassium 5.2 H 4.5 (3.5-5.1) mmol/L Chloride 100 102 (98-107) mmol/L Carbon Dioxide 26 30 (22-30) mmol/L BUN 18 H 19 H (7-17) mg/dL Creatinine 0.96 0.94 (0.52-1.04) mg/dL Glucose 256 H 246 H (74-99) mg/dL Calcium 9.2 8.5 (8.4-10.2) mg/dL AST 38 H (14-36) U/L ALT 18 (9-52) U/L Alkaline Phosphatase 137 H (38-126) U/L Total Protein 6.7 (6.3-8.2) g/dL Albumin 3.6 (3.5-5.0) g/dL Current Medications Generic Name Dose Route Start Last Admin Trade Name Aldairq PRN Reason Stop Dose Admin Aminophylline 100 mg 08/16/17 08:20 Aminophylline IV 08/18/17 08:21 ONCE PRN Patient Response Aspirin 325 mg 08/16/17 09:00 Aspirin PO DAILY [facility] Atenolol 25 mg 08/16/17 09:00 Tenormin PO DAILY [facility] Atorvastatin Calcium 40 mg 08/15/17 21:00 08/15/17 21:05 Lipitor PO 40 mg HS [facility] Administration Clopidogrel Bisulfate 75 mg 08/16/17 09:00 Plavix PO DAILY [facility] Ceftriaxone Sodium 1,000 mg/ 50 mls @ 100 mls/hr 08/15/17 20:00 08/15/17 21: 04 Sodium Chloride IVPB 100 mls/hr Q24H [facility] Administration Vancomycin HCl 1,500 mg/ 250 mls @ 125 mls/hr 08/15/17 21:00 08/15/17 21:04 Sodium Chloride IVPB 125 mls/hr Q16H [facility] Administration Insulin Glargine 30 unit 08/15/17 21:00 08/15/17 21:05 Lantus SQ 30 unit HS [facility] Administration Insulin Human Lispro 10 unit 08/16/17 07:30 08/16/17 08:24 Humalog SQ Not Given AC-TID [facility] Isosorbide Mononitrate 30 mg 08/16/17 09:00 Imdur PO DAILY [facility] Lisinopril 10 mg 08/16/17 09:00 Zestril PO DAILY [facility] Nitroglycerin 0.4 mg 08/15/17 11:52 Nitrostat SUBLINGUAL Q5M PRN Chest Pain Sodium Chloride 10 ml 08/15/17 21:00 08/16/17 08:25 Saline Flush IV Not Given BID [facility] Intake and Output 08/15/17 08/16/17 08/16/17 22:59 06:59 14:59 Intake Total 1150.253 595.02 Balance 1150.253 595.02 Intake: IV 200 Heparin Sodium,Porcine/ 200 D5w Pmx 25,000 unit In Dextrose/Water 1 500ml. bag @ 12 UNITS/KG/HR 19.1 mls/hr IV .Q24H [facility] Rx#: [id number] Intake, IV Titration 150.253 195.02 Amount Heparin Sodium,Porcine/ 150.253 195.02 D5w Pmx 25,000 unit In Dextrose/Water 1 500ml. bag @ 12 UNITS/KG/HR 19.1 mls/hr IV .Q24H [facility] Rx#: [id number] Oral 1000 200 Other: Voiding Method Toilet Toilet # Voids 1 3 # Bowel Movements 1 08/16/17 03:19 08/16/17 03:19
[2017-08-16] MEDS ORDERED: LISINOPRIL 10 MG TAB PO SCH (09:00)
[2017-08-16] MEDS ORDERED: ASPIRIN 325 MG TAB PO SCH (09:00)
[2017-08-16] MEDS ORDERED: ISOSORBIDE MONONITRATE ER 30 MG TAB.ER.24H PO SCH ×2 (09:00→12:45)
[2017-08-16] MEDS ORDERED: ATENOLOL 25 MG TAB PO SCH (09:00)
[2017-08-16] MEDS ORDERED: CLOPIDOGREL 75 MG TAB PO SCH (09:00)
--- NOTE | 2017-08-16 09:03 | P.CONS ---
History of Present Illness - Reason for Consult Consult date: 08/16/17 bilateral lower extremity cellulitis - History of Present Illness This is a 71-year-old female patient that has history of psoriasis and has had problems with extreme redness to her hands mostly which she treats with Vaseline intensive care and will eventually go away. She doesn't have scaly patches noted on elbows and knees. The redness that she talks about is different than this. She is not on any immune suppressive medications. She has had no injury to her legs She states this is the first time that she's had it on both lower legs. She does have an appointment on September 04 at [facility]. She states redness in her legs has been going on for about 3 weeks. She denies any pain to the area, no fever or chills. Patient came into [facility] emergency center due to shortness of breath with substernal chest pain for which she has been placed in the observation unit and cardiology consult is in place and patient is scheduled for a stress test today. The above dictated assessment and findings were discussed with Dr. Woo. The impression and plan of care have been directed as dictated. Sanam Dow nurse practitioner acting as scribe for Dr. Woo. Review of Systems All systems: negative Constitutional: Denies anorexia, Denies chills, Denies fever, Denies poor appetite Eyes: denies blurred vision, denies pain Ears, nose, mouth and throat: Denies headache, Denies sore throat Cardiovascular: Reports chest pain, Reports shortness of breath, Denies lightheadedness, Denies syncope Respiratory: Reports cough, Reports dyspnea, Denies cough with sputum, Denies excessive sputum, Denies hemoptysis, Denies home oxygen Gastrointestinal: Denies abdominal pain, Denies diarrhea, Denies nausea, Denies vomiting Genitourinary: Denies dysuria, Denies hematuria Musculoskeletal: Denies myalgias Integumentary: Reports darkening of skin, Denies pruritus, Denies rash Neurological: Denies numbness, Denies weakness Psychiatric: Denies anxiety, Denies depression Endocrine: Denies fatigue, Denies weight change Past Medical History Past Medical History: Cancer, COPD, Diabetes Mellitus, GERD/Reflux, Hearing Disorder / Deafness, Hyperlipidemia, Hypertension, Osteoarthritis (OA), Pneumonia, Skin Disorder, Vascular Disorder Additional Past Medical History / Comment(s): L BREAST CANCER WITH LUMPECTOMY- WAS TO HAVE RADIATION TXS BUT HASN'T YET D/T OTHER HEALTH PROBLEMS, HOME O2 PRN , ABDOMINAL AORTIC ANEURYSM, CARATID ARTERY DISEASE, IDDM TYPE II, [place] BILATERALLY, ATHRITIS MULTIPLE JOINTS, NEPHROLITHIASIS-PT PASSED STONE ON HER OWN, PSORIASIS, DIVERTICULAR DISEASE, ALLERGIC RHINITIS. History of Any Multi-Drug Resistant Organisms: None Reported Past Surgical History: Breast Surgery, Section, Cholecystectomy Additional Past Surgical History / Comment(s): LEFT BREAST BIOPSY R/T POSITIVE MAMMOGRAM/lumpectomy, angiogram with the celiac trunk dilatation with stent placement of the SMA, BILATERAL OOPHORECTOMY/SALPINGECTOMY, EGD. Past Anesthesia/Blood Transfusion Reactions: No Reported Reaction Past Psychological History: No Psychological Hx Reported Additional Psychological History / Comment(s): PT RESIDES WITH HER DAUGHTER, GREGORIO. SHE NO LONGER DRIVES BUT HER SHANNON IS ABLE TO TAKE HER TO APPTS. SHE HAS HOME OXYGEN WHICH SHE WEARS PRN. Smoking Status: Former smoker (Smokes one pack a day for 30 years) Past Alcohol Use History: None Reported Additional Past Alcohol Use History / Comment(s): PT STARTED SMOKIN IN 1965 AND QUIT IN 2004. No pets in the home. Past Drug Use History: None Reported - Past Family History Brother(s) Family Medical History: Congestive Heart Failure (CHF), Myocardial Infarction ( [place]) Mother Additional Family Medical History / Comment(s): BREAST CANCER WITH METS TO LIVER AND BONES. Father Family Medical History: CVA/TIA Daughter(s) Family Medical History: No Reported History Medications and Allergies Home Medications Medication Instructions Recorded Confirmed Type Enalapril [Vasotec] 5 mg PO DAILY 01/06/15 08/15/17 History Isosorbide Mononitrate ER [Imdur] 30 mg PO DAILY 01/06/15 08/15/17 History Insulin Aspart [NovoLOG] 20 unit SQ AC-TID 12/09/16 08/15/17 History Insulin Glargine,Hum.rec.anlog 70 units SQ HS 12/09/16 08/15/17 History [Daily Soldamaris] Atenolol 25 mg PO DAILY 12/18/16 08/15/17 History Atorvastatin [Lipitor] 40 mg PO HS 03/10/17 08/15/17 History Clopidogrel [Plavix] 75 mg PO DAILY 03/10/17 08/15/17 History Allergies Allergy/AdvReac Type Severity Reaction Status Date / Time azithromycin Allergy Rash/Hives Verified 08/15/17 09:37 Physical Exam Vitals: Vital Signs Temp Pulse Pulse Resp BP BP Pulse Ox 08/16/17 07:57 97.9 F 85 18 136/64 100 08/16/17 04:00 98.2 F 86 18 134/49 99 08/16/17 03:48 20 08/16/17 00:00 98.1 F 90 20 186/71 100 08/15/17 20:00 97.6 F 78 18 141/50 99 08/15/17 16:00 78 18 08/15/17 15:31 97.6 F 78 18 131/62 99 08/15/17 14:00 76 18 08/15/17 13:34 97.4 F L 76 18 123/58 99 08/15/17 13:11 97.3 F L 76 18 112/42 100 08/15/17 12:25 75 20 116/48 100 08/15/17 12:00 72 18 125/52 100 08/15/17 11:00 74 20 114/50 100 08/15/17 10:37 75 18 103/42 100 08/15/17 09:33 97 F L 76 18 141/64 96 Intake and Output 08/15/17 08/16/17 08/16/17 22:59 06:59 14:59 Intake Total 1150.253 595.02 Balance 1150.253 595.02 Intake: IV 200 Heparin Sodium,Porcine/ 200 D5w Pmx 25,000 unit In Dextrose/Water 1 500ml. bag @ 12 UNITS/KG/HR 19.1 mls/hr IV .Q24H [facility] Rx#: [id number] Intake, IV Titration 150.253 195.02 Amount Heparin Sodium,Porcine/ 150.253 195.02 D5w Pmx 25,000 unit In Dextrose/Water 1 500ml. bag @ 12 UNITS/KG/HR 19.1 mls/hr IV .Q24H [facility] Rx#: [id number] Oral 1000 200 Other: Voiding Method Toilet Toilet # Voids 1 3 # Bowel Movements 1 Gen: This is a 8-year-old female. She is found in bed and appears to be comfortable. No obvious shortness of breath at rest. HEENT: Head is atraumatic, normocephalic. Pupils equal, round. Sclerae is anicteric. NECK: Supple. No JVD. No lymphadenopathy. No thyromegaly. LUNGS: Bilaterally. No intercostal retractions. HEART: Regular rate and rhythm. No murmur. ABDOMEN: Soft. Bowel sounds are present. No masses. No tenderness. EXTREMITIES: Bilateral lower extremities have erythema with minimal edema with scaling noted starting at the toes to below the knee areas bilaterally. Area is slightly warm to the touch. Scaling is also noted to the elbows and knees. NEUROLOGICAL: Patient is awake, alert and oriented x3. Cranial nerves 2 through 12 are grossly intact. Results Results: Laboratory Results WBC 11.7 k/uL (3.8-10.6) H 08/15/17 09:51 RBC 4.37 m/uL (3.80-5.40) 08/15/17 09:51 Hgb 11.4 gm/dL (11.4-16.0) 08/15/17 09:51 Hct 36.6 % (34.0-46.0) 08/15/17 09:51 MCV 83.7 fL (80.0-100.0) 08/15/17 09:51 MCH 26.1 pg (25.0-35.0) 08/15/17 09:51 MCHC 31.2 g/dL (31.0-37.0) 08/15/17 09:51 RDW 15.2 % (11.5-15.5) 08/15/17 09:51 Plt Count 260 k/uL (150-450) 08/16/17 03:19 Neutrophils % 76 % 08/15/17 09:51 Lymphocytes % 14 % 08/15/17 09:51 Monocytes % 5 % 08/15/17 09:51 Eosinophils % 4 % 08/15/17 09:51 Basophils % 0 % 08/15/17 09:51 Neutrophils # 8.9 k/uL (1.3-7.7) H 08/15/17 09:51 Lymphocytes # 1.7 k/uL (1.0-4.8) 08/15/17 09:51 Monocytes # 0.6 k/uL (0-1.0) 08/15/17 09:51 Eosinophils # 0.4 k/uL (0-0.7) 08/15/17 09:51 Basophils # 0.0 k/uL (0-0.2) 08/15/17 09:51 Hypochromasia Moderate 08/15/17 09:51 PT 10.2 sec (9.0-12.0) 08/15/17 09:51 INR 1.0 (<1.2) 08/15/17 09:51 APTT 37.9 sec (22.0-30.0) H 08/16/17 03:19 Sodium 139 mmol/L (137-145) 08/16/17 03:19 Potassium 4.5 mmol/L (3.5-5.1) 08/16/17 03:19 Chloride 102 mmol/L (98-107) 08/16/17 03:19 Carbon Dioxide 30 mmol/L (22-30) 08/16/17 03:19 Anion Gap 7 mmol/L 08/16/17 03:19 BUN 19 mg/dL (7-17) H 08/16/17 03:19 Creatinine 0.94 mg/dL (0.52-1.04) 08/16/17 03:19 Est GFR (MDRD) Af Amer >60 (>60 ml/min/1.73 sqM) 08/16/17 03:19 Est GFR (MDRD) Non-Af 59 (>60 ml/min/1.73 sqM) 08/16/17 03:19 Glucose 246 mg/dL (74-99) H 08/16/17 03:19 POC Glucose (mg/dL) 218 mg/dL (75-99) H 08/16/17 06:43 POC Glu [employer] Business Agent ID Radha Burton 08/16/17 06:43 Calcium 8.5 mg/dL (8.4-10.2) 08/16/17 03:19 Magnesium 1.6 mg/dL (1.6-2.3) 08/15/17 09:51 Total Bilirubin 0.6 mg/dL (0.2-1.3) 08/15/17 09:51 AST 38 U/L (14-36) H 08/15/17 09:51 ALT 18 U/L (9-52) 08/15/17 09:51 Alkaline Phosphatase 137 U/L (38-126) H 08/15/17 09:51 Total Creatine Kinase 70 U/L (30-135) 08/15/17 21:16 CK-MB (CK-2) 2.6 ng/mL (0.0-2.4) H* 08/15/17 21:16 CK-MB (CK-2) Rel Index 3.7 08/15/17 21:16 Troponin I <0.012 ng/mL (0.000-0.034) 08/15/17 21:16 NT-Pro-B Natriuret Pep 392 pg/mL 08/15/17 09:51 Total Protein 6.7 g/dL (6.3-8.2) 08/15/17 09:51 Albumin 3.6 g/dL (3.5-5.0) 08/15/17 09:51 Triglycerides 225 mg/dL (<150) H 08/16/17 03:19 Cholesterol 111 mg/dL (<200) 08/16/17 03:19 LDL Cholesterol, Calc 37 mg/dL (0-99) 08/16/17 03:19 HDL Cholesterol 29 mg/dL (40-60) L 08/16/17 03:19 CBC & Chem 7: 08/16/17 03:19 08/16/17 03:19 Labs: Abnormal Lab Results - Last 24 Hours (Table) 08/15/17 08/15/17 08/15/17 Range/Units 09:51 09:51 09:51 WBC 11.7 H (3.8-10.6) k/uL Neutrophils # 8.9 H (1.3-7.7) k/uL APTT (22.0-30.0) sec Potassium 5.2 H (3.5-5.1) mmol/L BUN 18 H (7-17) mg/dL Glucose 256 H (74-99) mg/dL POC Glucose (mg/dL) (75-99) mg/dL AST 38 H (14-36) U/L Alkaline Phosphatase 137 H (38-126) U/L CK-MB (CK-2) 2.7 H* (0.0-2.4) ng/mL Triglycerides (<150) mg/dL HDL Cholesterol (40-60) mg/dL 08/15/17 08/15/17 08/15/17 Range/Units 09:51 15:52 16:44 WBC (3.8-10.6) k/uL Neutrophils # (1.3-7.7) k/uL APTT 18.1 L (22.0-30.0) sec Potassium (3.5-5.1) mmol/L BUN (7-17) mg/dL Glucose (74-99) mg/dL POC Glucose (mg/dL) 169 H (75-99) mg/dL AST (14-36) U/L Alkaline Phosphatase (38-126) U/L CK-MB (CK-2) 2.5 H* (0.0-2.4) ng/mL Triglycerides (<150) mg/dL HDL Cholesterol (40-60) mg/dL 08/15/17 08/15/17 08/16/17 Range/Units 20:44 21:16 03:19 WBC (3.8-10.6) k/uL Neutrophils # (1.3-7.7) k/uL APTT (22.0-30.0) sec Potassium (3.5-5.1) mmol/L BUN 19 H (7-17) mg/dL Glucose 246 H (74-99) mg/dL POC Glucose (mg/dL) 252 H (75-99) mg/dL AST (14-36) U/L Alkaline Phosphatase (38-126) U/L CK-MB (CK-2) 2.6 H* (0.0-2.4) ng/mL Triglycerides 225 H (<150) mg/dL HDL Cholesterol 29 L (40-60) mg/dL 08/16/17 08/16/17 Range/Units 03:19 06:43 WBC (3.8-10.6) k/uL Neutrophils # (1.3-7.7) k/uL APTT 37.9 H (22.0-30.0) sec Potassium (3.5-5.1) mmol/L BUN (7-17) mg/dL Glucose (74-99) mg/dL POC Glucose (mg/dL) 218 H (75-99) mg/dL AST (14-36) U/L Alkaline Phosphatase (38-126) U/L CK-MB (CK-2) (0.0-2.4) ng/mL Triglycerides (<150) mg/dL HDL Cholesterol (40-60) mg/dL Assessment and Plan Plan: This is a 71-year-old female who presented to the hospital with substernal chest pain and shortness of breath. She has been seen by cardiology and scheduled for stress test this morning. Patient also presented with cellulitis of the lower extremities for which she was placed on ceftriaxone and vancomycin. Patient has underlying history of psoriasis and has a appointment set up with [facility] on September 04 regarding this. Local wound care will be addressed. Further recommendations as patient progresses. The above dictated assessment and findings were discussed with Dr. Woo. The impression and plan of care have been directed as dictated. Sanam Dow nurse practitioner acting as scribe for Dr. Woo.
--- NOTE | 2017-08-16 10:08 | ECHOF ---
Referral Reason:shortness of rbeath MEASUREMENTS -------- HEIGHT: 170.2 cm WEIGHT: 79.8 kg BP: 134/49 IVSd: 1.1 cm (0.6 - 1.1) LVIDd: 3.6 cm (3.9 - 5.3) LVPWd: 1.3 cm (0.6 - 1.1) IVSs: 1.6 cm LVIDs: 2.2 cm LVPWs: 1.9 cm MV E Tyler: 0.96 m/s MV DecT: 177 ms MV A Tyler: 0.84 m/s MV E/A Ratio: 1.15 FINDINGS -------- Sinus rhythm. This was a technically difficult study with suboptimal views. Pt has severe COPD. The left ventricular size is normal. Left ventricular wall thickness is normal. Overall left ventricular systolic function is normal with, an EF between 55 - 60 %. The RV was not well visualized. The left atrium was not well visualized. The right atrium was not well visualized. 1.5mg of Definity was utilized for enhancement of images The aortic valve was not well visualized. There is trace mitral regurgitation. Trace tricuspid regurgitation present. The right ventricular systolic pressure, as measured by Doppler, is {RVSP}. The pulmonic valve was not well visualized. CONCLUSIONS -------- 1. Sinus rhythm. 2. 1.5mg of Definity was utilized for enhancement of images 3. The aortic valve was not well visualized. 4. There is trace mitral regurgitation. 5. Trace tricuspid regurgitation present. 6. The right ventricular systolic pressure, as measured by Doppler, is {RVSP}. 7. The pulmonic valve was not well visualized. 8. This was a technically difficult study with suboptimal views. 9. Pt has severe COPD. 10. The left ventricular size is normal. 11. Left ventricular wall thickness is normal. 12. Overall left ventricular systolic function is normal with, an EF between 55 - 60 %. 13. The RV was not well visualized. 14. The left atrium was not well visualized. 15. The right atrium was not well visualized. DYE TANK TENDER: Leandra Mehta, [facility]
--- NOTE | 2017-08-16 10:52 | P.CRDCN ---
History of Present Illness Consult date: 08/16/17 History of present illness: This is a 71-year-old female. Past medical history significant for COPD on home O2, DM, GERD, HTN, HLD, PVD and breast cancer. She quit smoking approximately 10 years ago. We have been asked to see this patient in consultation for complaints of increased shortness of breath and very nondescript chest discomfort intermittently. She is moderately short of breath during our exam and unable to complete a full sentence without stopping of air. She states she has been wearing her home O2 constantly lately. The chest discomfort she describes is midsternal/epigastric. It seems to be related to PO intake and she is able to resolve the pain by belching. She describes it as a knot sensation. She states he doesn't see a spinner concrete pipe for any reason and denies CAD. She follows regularly with her PCP. EKG reveals sinus mechanism with ST depression with T-wave inversion. Cardiac enzymes are 0.015, 0.014, 0.012. Review of Systems Extensive review of systems performed, negative except mentioned in HPI. Past Medical History Past Medical History: Cancer, COPD, Diabetes Mellitus, GERD/Reflux, Hearing Disorder / Deafness, Hyperlipidemia, Hypertension, Osteoarthritis (OA), Pneumonia, Skin Disorder, Vascular Disorder Additional Past Medical History / Comment(s): L BREAST CANCER WITH LUMPECTOMY- WAS TO HAVE RADIATION TXS BUT HASN'T YET D/T OTHER HEALTH PROBLEMS, HOME O2 PRN , ABDOMINAL AORTIC ANEURYSM, CARATID ARTERY DISEASE, IDDM TYPE II, [place] BILATERALLY, ATHRITIS MULTIPLE JOINTS, NEPHROLITHIASIS-PT PASSED STONE ON HER OWN, PSORIASIS, DIVERTICULAR DISEASE, ALLERGIC RHINITIS. History of Any Multi-Drug Resistant Organisms: None Reported Past Surgical History: Breast Surgery, Section, Cholecystectomy Additional Past Surgical History / Comment(s): LEFT BREAST BIOPSY R/T POSITIVE MAMMOGRAM/lumpectomy, angiogram with the celiac trunk dilatation with stent placement of the SMA, BILATERAL OOPHORECTOMY/SALPINGECTOMY, EGD. Past Anesthesia/Blood Transfusion Reactions: No Reported Reaction Past Psychological History: No Psychological Hx Reported Additional Psychological History / Comment(s): PT RESIDES WITH HER DAUGHTER, GREGORIO. SHE NO LONGER DRIVES BUT HER SHANNON IS ABLE TO TAKE HER TO [id number]. SHE HAS HOME OXYGEN WHICH SHE WEARS PRN. Smoking Status: Former smoker (Smokes one pack a day for 30 years) Past Alcohol Use History: None Reported Additional Past Alcohol Use History / Comment(s): PT STARTED SMOKIN IN 1965 AND QUIT IN 2004. No pets in the home. Past Drug Use History: None Reported - Past Family History Brother(s) Family Medical History: Congestive Heart Failure (CHF), Myocardial Infarction ( [place]) Mother Additional Family Medical History / Comment(s): BREAST CANCER WITH METS TO LIVER AND BONES. Father Family Medical History: CVA/TIA Daughter(s) Family Medical History: No Reported History Medications and Allergies Home Medications Medication Instructions Recorded Confirmed Type Enalapril [Vasotec] 5 mg PO DAILY 01/06/15 08/15/17 History Isosorbide Mononitrate ER [Imdur] 30 mg PO DAILY 01/06/15 08/15/17 History Insulin Aspart [NovoLOG] 20 unit SQ AC-TID 12/09/16 08/15/17 History Insulin Glargine,Hum.rec.anlog 70 units SQ HS 12/09/16 08/15/17 History [Toujeo Solostar] Atenolol 25 mg PO DAILY 12/18/16 08/15/17 History Atorvastatin [Lipitor] 40 mg PO HS 03/10/17 08/15/17 History Clopidogrel [Plavix] 75 mg PO DAILY 03/10/17 08/15/17 History Allergies Allergy/AdvReac Type Severity Reaction Status Date / Time azithromycin Allergy Rash/Hives Verified 08/15/17 09:37 Physical Exam Vitals: Vital Signs Temp Pulse Pulse Resp BP BP Pulse Ox 08/16/17 08:00 18 08/16/17 07:57 97.9 F 85 18 136/64 100 08/16/17 04:00 98.2 F 86 18 134/49 99 08/16/17 03:48 20 08/16/17 00:00 98.1 F 90 20 186/71 100 08/15/17 20:00 97.6 F 78 18 141/50 99 08/15/17 16:00 78 18 08/15/17 15:31 97.6 F 78 18 131/62 99 08/15/17 14:00 76 18 08/15/17 13:34 97.4 F L 76 18 123/58 99 08/15/17 13:11 97.3 F L 76 18 112/42 100 08/15/17 12:25 75 20 116/48 100 08/15/17 12:00 72 18 125/52 100 08/15/17 11:00 74 20 114/50 100 Intake and Output 08/15/17 08/16/17 08/16/17 22:59 06:59 14:59 Intake Total 1150.253 595.02 Balance 1150.253 595.02 Intake: IV 200 Heparin Sodium,Porcine/ 200 D5w Pmx 25,000 unit In Dextrose/Water 1 500ml. bag @ 12 UNITS/KG/HR 19.1 mls/hr IV .Q24H [facility] Rx#: [id number] Intake, IV Titration 150.253 195.02 Amount Heparin Sodium,Porcine/ 150.253 195.02 D5w Pmx 25,000 unit In Dextrose/Water 1 500ml. bag @ 12 UNITS/KG/HR 19.1 mls/hr IV .Q24H ALEK[facility] Rx#: [id number] Oral 1000 200 Other: Voiding Method Toilet Toilet # Voids 1 3 # Bowel Movements 1 GENERAL: This is a 71-year-old female in mild respiratory distress with exertion. HEENT: Head is atraumatic, normocephalic. Pupils are equal, round. Sclerae anicteric. Conjunctivae are clear. Mucous membranes of the mouth are moist. Neck is supple. There is no jugular venous distention. No carotid bruit is heard. LUNGS: Clear to auscultation no wheezes, rales or rhonchi. No chest wall tenderness is noted on palpation or with deep breathing. Diminished air entry b/ l. HEART: Regular rate and rhythm without murmurs, rubs or gallops. S1 and S2 heard. ABDOMEN: Soft, nontender. Bowel sounds are heard. No organomegaly noted. EXTREMITIES: 2+ peripheral pulses with 1+ pitting edema b/l and redness. No calf tenderness noted. NEUROLOGIC: Patient is awake, alert and oriented x3. Results 08/16/17 03:19 08/16/17 03:19 Cardiac Enzymes 08/15/17 08/15/17 08/15/17 Range/Units 09:51 09:51 15:52 AST 38 H (14-36) U/L CK-MB (CK-2) 2.7 H* 2.5 H* (0.0-2.4) ng/mL Troponin I 0.015 0.014 (0.000-0.034) ng/mL 08/15/17 Range/Units 21:16 AST (14-36) U/L CK-MB (CK-2) 2.6 H* (0.0-2.4) ng/mL Troponin I <0.012 (0.000-0.034) ng/mL Coagulation 08/15/17 08/15/17 08/16/17 Range/Units 09:51 19:36 03:19 PT 10.2 (9.0-12.0) sec APTT 18.1 L 27.6 37.9 H (22.0-30.0) sec Lipids 08/16/17 Range/Units 03:19 Triglycerides 225 H (<150) mg/dL Cholesterol 111 (<200) mg/dL HDL Cholesterol 29 L (40-60) mg/dL CBC 08/16/17 Range/Units 03:19 Plt Count 260 (150-450) k/uL Comprehensive Metabolic Panel 08/15/17 08/16/17 Range/Units 09:51 03:19 Sodium 139 139 (137-145) mmol/L Potassium 5.2 H 4.5 (3.5-5.1) mmol/L Chloride 100 102 (98-107) mmol/L Carbon Dioxide 26 30 (22-30) mmol/L BUN 18 H 19 H (7-17) mg/dL Creatinine 0.96 0.94 (0.52-1.04) mg/dL Glucose 256 H 246 H (74-99) mg/dL Calcium 9.2 8.5 (8.4-10.2) mg/dL AST 38 H (14-36) U/L ALT 18 (9-52) U/L Alkaline Phosphatase 137 H (38-126) U/L Total Protein 6.7 (6.3-8.2) g/dL Albumin 3.6 (3.5-5.0) g/dL Current Medications Generic Name Dose Route Start Last Admin Trade Name Freq PRN Reason Stop Dose Admin Aminophylline 100 mg 08/16/17 08:20 Aminophylline IV 08/18/17 08:21 ONCE PRN Patient Response Aspirin 325 mg 08/16/17 09:00 Aspirin PO DAILY [facility] Atenolol 25 mg 08/16/17 09:00 Tenormin PO DAILY [facility] Atorvastatin Calcium 40 mg 08/15/17 21:00 08/15/17 21:05 Lipitor PO 40 mg HS [facility]LEK[facility] Administration Clopidogrel Bisulfate 75 mg 08/16/17 09:00 Plavix PO DAILY [facility] Ceftriaxone Sodium 1,000 mg/ 50 mls @ 100 mls/hr 08/15/17 20:00 08/15/17 21: 04 Sodium Chloride IVPB 100 mls/hr Q24H ALEKSE[facility] Administration Vancomycin HCl 1,500 mg/ 250 mls @ 125 mls/hr 08/15/17 21:00 08/15/17 21:04 Sodium Chloride IVPB 125 mls/hr Q16H ALEK[facility] Administration Insulin Glargine 30 unit 08/15/17 21:00 08/15/17 21:05 Lantus SQ 30 unit HS [facility] Administration Insulin Human Lispro 10 unit 08/16/17 07:30 08/16/17 08:24 Humalog SQ Not Given AC-TID [facility] Lisinopril 10 mg 08/16/17 09:00 Zestril PO DAILY [facility] Nitroglycerin 0.4 mg 08/15/17 11:52 Nitrostat SUBLINGUAL Q5M PRN Chest Pain Sodium Chloride 10 ml 08/15/17 21:00 08/16/17 08:25 Saline Flush IV Not Given BID [facility] Intake and Output 08/15/17 08/16/17 08/16/17 22:59 06:59 14:59 Intake Total 1150.253 595.02 Balance 1150.253 595.02 Intake: IV 200 Heparin Sodium,Porcine/ 200 D5w Pmx 25,000 unit In Dextrose/Water 1 500ml. bag @ 12 UNITS/KG/HR 19.1 mls/hr IV .Q24H [facility] Rx#: [id number] Intake, IV Titration 150.253 195.02 Amount Heparin Sodium,Porcine/ 150.253 195.02 D5w Pmx 25,000 unit In Dextrose/Water 1 500ml. bag @ 12 UNITS/KG/HR 19.1 mls/hr IV .Q24H [facility] Rx#: [id number] Oral 1000 200 Other: Voiding Method Toilet Toilet # Voids 1 3 # Bowel Movements 1 08/16/17 03:19 08/16/17 03:19 Assessment and Plan Plan: ASSESSMENT 1. Chest pain, atypical 2. Recent celiac artery stent 3. COPD with acute exacerbation 4. Diabetes mellitus 5. Essential hypertension 6. Hyperlipidemia PLAN We recommend 2D echo and doppler study to assess cardiac structure and function as well as aortic valve. Lexiscan stress test today to rule out acute coronary event. Aspirin and plavix to be continued. Change enalapril to lisinopril 10 daily. Nurse Practitioner note has been reviewed, I agree with a documented findings and plan of care. Patient was seen and examined.
--- NOTE | 2017-08-16 11:34 | NM ---
EXAMINATION TYPE: NM stress lexiscan cardiolite DATE OF EXAM: 08/16/2017 COMPARISON: NONE HISTORY: 71 year-old female shortness of breath, abnormal EKG, chest pain TECHNIQUE: After the intravenous administration of 10.09 mCi Tc 99m Cardiolite resting SPECT images acquired 45 minutes post injection. The patient received 0.4mg Lexiscan, 29.7 mCi Tc 99m Cardiolite- Stress images obtained [address] injection FINDINGS: Review of stress and rest SPECT images demonstrates Polar maps. A small area of relatively decreased apical perfusion on stress images. This is corroborated on the polar maps. However, gated analysis coates ggests normal augmentation and thickening of the cardiac apex. Estimated left ventricular ejection fr action of 58 %. TID is calculated at 1.17 which is upper limits of normal. IMPRESSION: Possible small area of reversibility at the cardiac apex. Further clinical correlation recommended.
[2017-08-16 11:39] LABS: Glucose,Whole Blood 221 mg/dL (75-99)
[2017-08-16 11:59] VITALS: BP 144/64; PULSE 88; TEMP 98
[2017-08-16] MEDS ORDERED: METOPROLOL SUCCINATE (ER) 50 MG TAB.ER.24H PO SCH (12:45)
--- NOTE | 2017-08-16 12:58 | P.PN ---
Progress Note - Text Stress test reviewed Medical management for the possible small area of ischemia She is already on statins, LDL is excellent, continue Imdur, change from atenolol to Toprol-XL 50 mrem today 1 dose today
[2017-08-16] MEDS: VANCOMYCIN 1,500 MG in SODIUM CHLORIDE 0.9% 250 ML IVPB SCH (13:27)
--- NOTE | 2017-08-16 13:49 | US ---
EXAMINATION TYPE: US venous doppler duplex LE DATE OF EXAM: 08/16/2017 11:16 AM COMPARISON: None CLINICAL HISTORY: 71 year-old female lower extremity swelling. On blood thinners. No hx of blood mack ts. No pain. SIDE PERFORMED: Bilateral TECHNIQUE: The lower extremity deep venous system is examined utilizing real time linear array sonog [place] with graded compression, doppler sonography and color-flow sonography. FINDINGS: VESSELS IMAGED: External Iliac Vein (EIV) Common Femoral Vein Deep Femoral Vein Greater Saphenous Vein * Femoral Vein Popliteal Vein Small Saphenous Vein * Proximal Calf Veins (* superficial vessels) Right Leg: Appears negative for DVT Left Leg: Appears negative for DVT IMPRESSION: No evidence for DVT within the bilateral lower extremities imaged from the groin to the upper calves.
--- NOTE | 2017-08-16 22:14 | P.CON ---
Consult Note - . Consult date: 08/16/17 Assessment/Plan:: This is a 71-year-old female patient that has history of psoriasis and has had problems with extreme redness to her hands mostly which she treats with Vaseline intensive care and will eventually go away. She doesn't have scaly patches noted on elbows and knees. The redness that she talks about is different than this. She is not on any immune suppressive medications. She has had no injury to her legs She states this is the first time that she's had it on both lower legs. She does have an appointment on September 04 at [facility]. She states redness in her legs has been going on for about 3 weeks. She denies any pain to the area, no fever or chills. Patient came into [facility] emergency center due to shortness of breath with substernal chest pain for which she has been placed in the observation unit and cardiology consult is in place and patient is scheduled for a stress test today. Please see the consult note is dictated by nurse practitioner Mrs. Sanam Dow. He has noted the patient has evidence of a chronic dermatitis to her lower extremities. They do not appear to be infected. Systemic antibiotic therapy is discontinued. The patient will have her stress test and likely discharge home later today. Topical therapy with steroids such as triamcinolone can be utilized. Continue with her dermatological follow-up in the outpatient setting. She'll follow up with infectious diseases if there is further request from the franchise sales representative. I agree with evaluation, assessment and plan as dictated practitioner Mrs. Sanam Dow.
--- NOTE | 2017-08-17 08:08 | EST ---
EXERCISE STRESS AGE: 71 SEX: F HT: 5'7" WT: 175 PROTOCOL: LEXISCAN CARDIOLITE STRESS TEST HEART RATE REST: 81 BLOOD PRESSURE REST: 160/77 MAXIMUM HEART RATE ACHIEVED: 97 MAXIMUM BLOOD PRESSURE: 169/75 85% MPHR: 128 100% MPHR: 150 INDICATIONS: Abnormal EKG, chest pain. CLINICAL INFORMATION: ECG portion of the stress test is being dictated. Baseline heart rate 81 beats per minute. Baseline blood pressure 160/77 mmHg. Baseline 12-lead ECG shows sinus rhythm with 0.5 to [address] depression noted. Patient received Lexiscan infusion per protocol. There was no significant change in heart rate or blood pressure. A [address] depression is noted post infusion. Patient did not complain of any chest pain. The nuclear portion of the stress test will be reported separately. MMODL / IJN: [id number] /
--- NOTE | 2017-08-19 17:16 | P.DS ---
Providers Date of admission: 08/15/17 11:52 Expected date of discharge: 08/16/17 Attending physician: Rich Gamez MD Consults: 08/15/17 11:52 Consult Physician Urgent Consulting Provider: Rocky Adair Consult Reason/Comments: ua, ekg changes Do you want consulting provider notified?: Yes 08/15/17 18:55 Consult Physician Routine Consulting Provider: Gregory Woo Consult Reason/Comments: lower extremity swelling, early cellulitis Do you want consulting provider notified?: Yes Primary care physician: Chi Oakes Hospital Course: This is a 71 Year-Old female with a previous medical history significant for hypertension and hypertensive cardiovascular disease, hyperlipidemia, insulin-dependent diabetes mellitus type 2, abdominal aortic aneurysm , carotid artery disease, was hospitalized at [facility] for right middle lobe pneumonia and COPD exacerbation and was recently discharged around November 2016 , the patient was discharged home and came back a few days later with significant abdominal pain radiating to the back associated with nausea but no vomiting patient at that time was hospitalized under were service and she was seen and evaluated by gastroenterology as well as general surgery underwent a CT abdomen pelvis with contrast and at the same time underwent ultrasound of the gallbladder and EGD she was diagnosed with esophagitis as well as cholelithiasis underwent laparoscopic cholecystectomy and the patient was discharged home in a stable condition. 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 She was seen in February for acute diverticulitis for which patient was treated with antibiotic and sent home.patient was doing well until one week ago when she started experiencing shortness of breath associated with substernal chest pain. Patient also noticed that she was unable to do her daily activities and could not walk a few steps before getting short of breath. Patient's daughter was concerned about the worsening lower extremity edema and decided the patient should be brought to ER for assessment. Patient seen by Dr. Cai as outpatient and the antibiotic was ordered but patient did not receive antibiotic. In the ED patient had leukocytosis of 11.4, INR 1, potassium of 5.2, creatinine 0.96 with glucose of 256, CK-MB elevated with normal troponin 2, BNP of 392. Patient was admitted for management of chest pain and worsening shortness of breath. EKG was normal sinus rhythm. Cardiology was consulted and patient was admitted 08/16: Patient underwent stress test that showed possible small area of ischemia. Dr. Summers decided to continue her on statins, Imdur and changed atenolol to Toprol-XL 50 mg daily. Echocardiogram revealed EF of 55-60%, trace mitral regurgitation, trace tricuspid regurgitation. Patient was also seen by Dr. Woo regarding concern for cellulitis of the lower extremities. Venous Doppler studies of the lower extremities negative for DVT bilaterally. Dr. Woo noted that this was a chronic dermatitis of the lower extremities and antibiotics were discontinued and he recommended transcend alone cream and follow up with the dermatology appointment that has been arranged. Discharge diagnoses: #1 unstable angina 2. Chronic dermatitis of the lower extremities 3. 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 Asymptomatic 4. Diabetes Mellitus type 2. 4. Hypertension. 5. Hyperlipidemia. 6. Breast cancer post left lumpectomy. 7. Allergic Rhinitis. asymptomatic Discharge plan: Return home Impression and plan of care have been directed as dictated by the signing physician. Sanam Dow nurse practitioner acting as scribe for signing physician. Cc: Dr. Rusty Lewis Patient Condition at Discharge: Good Plan - Discharge Summary New Discharge Prescriptions: New Aspirin EC [Ecotrin Low Dose] 81 mg PO DAILY #30 tablet. Cephalexin [Keflex] 500 mg PO Q8HR #21 cap Metoprolol Succinate (ER) [Toprol XL] 50 mg PO DAILY #30 tab Nitroglycerin Sl Tabs [Nitrostat] 0.4 mg SUBLINGUAL Q5M PRN #25 tab PRN Reason: Chest Pain Continue Enalapril [Vasotec] 5 mg PO DAILY Isosorbide Mononitrate ER [Imdur] 30 mg PO DAILY Insulin Glargine,Hum.rec.anlog [Toujeo Solostar] 70 units SQ HS Insulin Aspart [NovoLOG] 20 unit SQ AC-TID Clopidogrel [Plavix] 75 mg PO DAILY Atorvastatin [Lipitor] 40 mg PO HS Discontinued Atenolol 25 mg PO DAILY Discharge Medication List Enalapril [Vasotec] 5 mg PO DAILY 01/06/15 [History] Isosorbide Mononitrate ER [Imdur] 30 mg PO DAILY 01/06/15 [History] Insulin Aspart [NovoLOG] 20 unit SQ AC-TID 12/09/16 [History] Insulin Glargine,Hum.rec.anlog [Toujeo Solostar] 70 units SQ HS 12/09/16 [ History] Atorvastatin [Lipitor] 40 mg PO HS 03/10/17 [History] Clopidogrel [Plavix] 75 mg PO DAILY 03/10/17 [History] Aspirin EC [Ecotrin Low Dose] 81 mg PO DAILY #30 tablet.dr 08/16/17 [Rx] Cephalexin [Keflex] 500 mg PO Q8HR #21 cap 08/16/17 [Rx] Metoprolol Succinate (ER) [Toprol XL] 50 mg PO DAILY #30 tab 08/16/17 [Rx] Nitroglycerin Sl Tabs [Nitrostat] 0.4 mg SUBLINGUAL Q5M PRN #25 tab 08/16/17 [Rx ] Follow up Appointment(s)/Referral(s): [facility] [Provider Group] - 1 Week (Office will call patient with appointment date and time) Rusty Lewis MD [Primary Care Provider] - 1 Week Patient Instructions/Handouts: Chest Pain (DC), Dyspnea (GEN) Discharge Disposition: HOME SELF-CARE
== END 2017-08-16 15:58 | disposition home or self-care (01) ==
LOC: EC 09:31 → 3OBS 11:52
PROVIDERS: ADMIT Internal Medicine; ATTEND Internal Medicine
DX: I20.0 Unstable angina (principal); L30.9 Dermatitis, unspecified; L03.115 Cellulitis of right lower limb; L03.116 Cellulitis of left lower limb; H91.90 Unspecified hearing loss, unspecified ear; E11.51 Type 2 diabetes mellitus with diabetic peripheral angiopathy without gangrene; E78.5 Hyperlipidemia, unspecified; J44.1 Chronic obstructive pulmonary disease with (acute) exacerbation; L40.9 Psoriasis, unspecified; R10.10 Upper abdominal pain, unspecified; I11.9 Hypertensive heart disease without heart failure; E66.01 Morbid (severe) obesity due to excess calories; Z68.27 Body mass index [BMI] 27.0-27.9, adult; Z92.3 Personal history of irradiation; Z85.3 Personal history of malignant neoplasm of breast; Z79.4 Long term (current) use of insulin; Z79.02 Long term (current) use of antithrombotics/antiplatelets; Z79.899 Other long term (current) drug therapy; Z88.1 Allergy status to other antibiotic agents; Z87.442 Personal history of urinary calculi; Z87.891 Personal history of nicotine dependence; Z99.81 Dependence on supplemental oxygen; Z95.828 Presence of other vascular implants and grafts; Z82.49 Family history of ischemic heart disease and other diseases of the circulatory system
CPT/HCPCS: 99285; 96376 ×4; 96365 ×2; 96366 ×2; 96367; 96368; 36415; 93005; 93017; 83880; 80061; 80053; 80048; 82550; 82553; 83735; 84484; 85025; 85049; 85610; 85730 ×2; 71020 ×2; 93970; 78452; G0378 ×2; C8929; A9500; J3370 ×2; J1644 ×3; J0696; Q9957; J2785; 93306

== ENCOUNTER 2017-08-18 09:25 | Inpatient (IN) | payer MEDICARE ==
[2017-08-18] MEDS ORDERED: ONDANSETRON 4 MG/2 ML VIAL IVP STA (09:53)
--- NOTE | 2017-08-18 09:55 | ED ---
General Adult HPI - General Chief complaint: Shortness of Breath Stated complaint: Hx CHF, alfredo Time Seen by Provider: 08/18/17 09:30 Source: patient, RN notes reviewed Mode of arrival: wheelchair Limitations: no limitations - History of Present Illness Initial comments: This is a 71-year-old female who was recently admitted to the hospital for difficulty breathing and was told it was from congestive heart failure. Patient has been home for one day and since has become much weaker unable to and laid on her own vomited since last night and feels more short of breath than normal. Patient states she has chest pain when she takes deep breath but otherwise no chest pain. Patient denies abdominal pain patient denies any diarrhea. Patient denies any dysuria hematuria urinary frequency. Patient states the edema in her leg has gone down recently. Patient denies any back pain. Patient denies headache patient denies numbness or focal weakness. Patient denies any lightheadedness or dizziness. - Related Data Home Medications Medication Instructions Recorded Confirmed Enalapril [Vasotec] 5 mg PO DAILY 01/06/15 08/18/17 Isosorbide Mononitrate ER [Imdur] 30 mg PO DAILY 01/06/15 08/18/17 Insulin Aspart [NovoLOG] 20 unit SQ AC-TID 12/09/16 08/18/17 Insulin Glargine,Hum.rec.anlog 70 units SQ HS 12/09/16 08/18/17 [Toujeo Solostar] Atorvastatin [Lipitor] 40 mg PO HS 03/10/17 08/18/17 Clopidogrel [Plavix] 75 mg PO DAILY 03/10/17 08/18/17 Previous Rx's Medication Instructions Recorded Aspirin EC [Ecotrin Low Dose] 81 mg PO DAILY #30 tablet. 08/16/17 Cephalexin [Keflex] 500 mg PO Q8HR #21 cap 08/16/17 Metoprolol Succinate (ER) [Toprol 50 mg PO DAILY #30 tab 08/16/17 XL] Nitroglycerin Sl Tabs [Nitrostat] 0.4 mg SUBLINGUAL Q5M PRN #25 tab 08/16/17 Allergies Allergy/AdvReac Type Severity Reaction Status Date / Time azithromycin Allergy Rash/Hives Verified 08/18/17 11:34 Review of Systems ROS Statement: Those systems with pertinent positive or pertinent negative responses have been documented in the HPI. ROS Other: All systems not noted in ROS Statement are negative. Past Medical History Past Medical History: Cancer, COPD, Diabetes Mellitus, GERD/Reflux, Hearing Disorder / Deafness, Hyperlipidemia, Hypertension, Osteoarthritis (OA), Pneumonia, Skin Disorder, Vascular Disorder Additional Past Medical History / Comment(s): L BREAST CANCER WITH LUMPECTOMY- WAS TO HAVE RADIATION TXS BUT HASN'T YET D/T OTHER HEALTH PROBLEMS, HOME O2 PRN , ABDOMINAL AORTIC ANEURYSM, CARATID ARTERY DISEASE, IDDM TYPE II, [place] BILATERALLY, ATHRITIS MULTIPLE JOINTS, NEPHROLITHIASIS-PT PASSED STONE ON HER OWN, PSORIASIS, DIVERTICULAR DISEASE, ALLERGIC RHINITIS. History of Any Multi-Drug Resistant Organisms: None Reported Past Surgical History: Breast Surgery, Section, Cholecystectomy Additional Past Surgical History / Comment(s): LEFT BREAST BIOPSY R/T POSITIVE MAMMOGRAM/lumpectomy, angiogram with the celiac trunk dilatation with stent placement of the SMA, BILATERAL OOPHORECTOMY/SALPINGECTOMY, EGD. Past Anesthesia/Blood Transfusion Reactions: No Reported Reaction Past Psychological History: No Psychological Hx Reported Smoking Status: Former smoker Past Alcohol Use History: None Reported Past Drug Use History: None Reported - Past Family History Brother(s) Family Medical History: Congestive Heart Failure (CHF), Myocardial Infarction ( [place]) Mother Additional Family Medical History / Comment(s): BREAST CANCER WITH METS TO LIVER AND BONES. Father Family Medical History: CVA/TIA Daughter(s) Family Medical History: No Reported History General Exam - General Exam Comments Initial Comments: GENERAL: Patient is well-developed and well-nourished. Patient is nontoxic and well- hydrated and is in mild distress. ENT: Neck is soft and supple. No significant lymphadenopathy is noted. Oropharynx is clear. Moist mucous membranes. Neck has full range of motion without eliciting any pain. EYES: The sclera were anicteric and conjunctiva were pink and moist. Extraocular movements were intact and pupils were equal round and reactive to light. Eyelids were unremarkable. PULMONARY: Patient has diffuse diminished breath sounds. CARDIOVASCULAR: There is a regular rate and rhythm without any murmurs gallops or rubs. ABDOMEN: Soft and nontender with normal bowel sounds. No palpable organomegaly was noted. There is no palpable pulsatile mass. SKIN: Patient has psoriasis on both legs. NEUROLOGIC: Patient is alert and oriented x3. Cranial nerves II through XII are grossly intact. Motor and sensory are also intact. Normal speech, volume and content. Symmetrical smile. MUSCULOSKELETAL: Normal extremities with adequate strength and full range of motion. 2+ edema in the legs. LYMPHATICS: No significant lymphadenopathy is noted PSYCHIATRIC: Normal psychiatric evaluation. Normal interpersonal interactions appears functionally intact in deals appropriately with others. No signs of depression. No signs of anxiety. Limitations: no limitations Course Vital Signs 08/18/17 08/18/17 09:28 11:40 Temperature 97.6 F Pulse Rate 83 67 Respiratory 20 16 Rate Blood Pressure 179/75 153/69 O2 Sat by Pulse 99 99 Oximetry Medical Decision Making - Medical Decision Making EKG shows normal sinus rhythm at 75 bpm [place] interval is 182 QRS is 90 QT interval 390 QTC is 435. EKG shows some minimal ST segment depression in leads V5 and V6. Chest x-ray shows no acute abnormality. Patient's troponin was elevated at 0.9 I started the patient on heparin because 3 days ago her troponin was normal. Patient did have some mild EKG changes with some ST segment depression in leads V5 and V6. I spoke with the on-call physician and they agreed to admit admitted the patient I wrote admitting orders and consult to cardiology I continued heparin Nitropaste and aspirin on the floor. - Lab Data Result diagrams: 08/18/17 09:48 08/18/17 09:48 Lab Results 08/18/17 08/18/17 08/18/17 Range/Units 09:48 09:48 09:48 WBC 10.2 (3.8-10.6) k/uL RBC 4.21 (3.80-5.40) m/uL Hgb 11.1 L (11.4-16.0) gm/dL Hct 36.2 (34.0-46.0) % MCV 85.8 (80.0-100.0) fL MCH 26.3 (25.0-35.0) pg MCHC 30.6 L (31.0-37.0) g/dL RDW 14.4 (11.5-15.5) % Plt Count 270 (150-450) k/uL Neutrophils % 74 % Lymphocytes % 14 % Monocytes % 6 % Eosinophils % 4 % Basophils % 0 % Neutrophils # 7.5 (1.3-7.7) k/uL Lymphocytes # 1.5 (1.0-4.8) k/uL Monocytes # 0.6 (0-1.0) k/uL Eosinophils # 0.4 (0-0.7) k/uL Basophils # 0.0 (0-0.2) k/uL Hypochromasia Marked PT (9.0-12.0) sec INR (<1.2) APTT (22.0-30.0) sec Sodium 141 (137-145) mmol/L Potassium 5.0 (3.5-5.1) mmol/L Chloride 99 (98-107) mmol/L Carbon Dioxide 33 H (22-30) mmol/L Anion Gap 9 mmol/L BUN 12 (7-17) mg/dL Creatinine 0.87 (0.52-1.04) mg/dL Est GFR (MDRD) Af Amer >60 (>60 ml/min/1.73 sqM) Est GFR (MDRD) Non-Af >60 (>60 ml/min/1.73 sqM) Glucose 197 H (74-99) mg/dL Calcium 9.4 (8.4-10.2) mg/dL Magnesium 1.7 (1.6-2.3) mg/dL Total Bilirubin 0.4 (0.2-1.3) mg/dL AST 31 (14-36) U/L ALT 34 (9-52) U/L Alkaline Phosphatase 143 H (38-126) U/L Total Creatine Kinase 83 (30-135) U/L CK-MB (CK-2) 4.5 H* (0.0-2.4) ng/mL CK-MB (CK-2) Rel Index 5.4 Troponin I 0.980 H* (0.000-0.034) ng/mL NT-Pro-B Natriuret Pep pg/mL Total Protein 6.6 (6.3-8.2) g/dL Albumin 3.6 (3.5-5.0) g/dL Urine Color Urine Appearance (Clear) Urine pH (5.0-8.0) Ur Specific [place] (1.001-1.035) Urine Protein (Negative) Urine Glucose (UA) (Negative) Urine Ketones (Negative) Urine Blood (Negative) Urine Nitrite (Negative) Urine Bilirubin (Negative) Urine Urobilinogen (<2.0) mg/dL Ur Leukocyte Esterase (Negative) Urine RBC (0-5) /hpf Ur Squamous Epith Cells (0-4) /hpf Amorphous Sediment (None) /hpf Urine Mucus (None) /hpf 08/18/17 08/18/17 08/18/17 Range/Units 09:48 09:48 10:45 WBC (3.8-10.6) k/uL RBC (3.80-5.40) m/uL Hgb (11.4-16.0) gm/dL Hct (34.0-46.0) % MCV (80.0-100.0) fL MCH (25.0-35.0) pg MCHC (31.0-37.0) g/dL RDW (11.5-15.5) % Plt Count (150-450) k/uL Neutrophils % % Lymphocytes % % Monocytes % % Eosinophils % % Basophils % % Neutrophils # (1.3-7.7) k/uL Lymphocytes # (1.0-4.8) k/uL Monocytes # (0-1.0) k/uL Eosinophils # (0-0.7) k/uL Basophils # (0-0.2) k/uL Hypochromasia PT 10.1 (9.0-12.0) sec INR 1.0 (<1.2) APTT 19.0 L (22.0-30.0) sec Sodium (137-145) mmol/L Potassium (3.5-5.1) mmol/L Chloride (98-107) mmol/L Carbon Dioxide (22-30) mmol/L Anion Gap mmol/L BUN (7-17) mg/dL Creatinine (0.52-1.04) mg/dL Est GFR (MDRD) Af Amer (>60 ml/min/1.73 sqM) Est GFR (MDRD) Non-Af (>60 ml/min/1.73 sqM) Glucose (74-99) mg/dL Calcium (8.4-10.2) mg/dL Magnesium (1.6-2.3) mg/dL Total Bilirubin (0.2-1.3) mg/dL AST (14-36) U/L ALT (9-52) U/L Alkaline Phosphatase (38-126) U/L Total Creatine Kinase (30-135) U/L CK-MB (CK-2) (0.0-2.4) ng/mL CK-MB (CK-2) Rel Index Troponin I (0.000-0.034) ng/mL NT-Pro-B Natriuret Pep 1500 pg/mL Total Protein (6.3-8.2) g/dL Albumin (3.5-5.0) g/dL Urine Color Yellow Urine Appearance Cloudy H (Clear) Urine pH 5.5 (5.0-8.0) Ur Specific [place] 1.016 (1.001-1.035) Urine Protein 2+ H (Negative) Urine Glucose (UA) Trace H (Negative) Urine Ketones Negative (Negative) Urine Blood Trace H (Negative) Urine Nitrite Negative (Negative) Urine Bilirubin Negative (Negative) Urine Urobilinogen <2.0 (<2.0) mg/dL Ur Leukocyte Esterase Negative (Negative) Urine RBC 2 (0-5) /hpf Ur Squamous Epith Cells 1 (0-4) /hpf Amorphous Sediment Rare H (None) /hpf Urine Mucus Rare H (None) /hpf Critical Care Time Critical Care Time: Yes Total Critical Care Time: 35 Disposition Clinical Impression: Non-STEMI (non-ST elevated myocardial infarction), Generalized weakness Disposition: ADMITTED IP TO THIS HOSP Referrals: Rusty Lewis MD [Primary Care Provider] - 1-2 days Time of Disposition: 12:19
[2017-08-18] MEDS ORDERED: HYDROmorphone 0.5 MG/0.5 ML SYRINGE IVP PRN (10:32)
[2017-08-18 10:40] LABS: Basophils % (A) 0 %; CH 25.1; CHCM 29.4; Eosinophils # (A) 0.4 k/uL (0-0.7); Eosinophils % (A) 4 %; HCT 36.2 % (34.0-46.0); HGB 11.1 gm/dL (11.4-16.0); Hypochromasia Marked; Luc # (Auto) 0.18; Luc % (Auto) 2; Lymphocytes # (A) 1.5 k/uL (1.0-4.8); Lymphocytes % (A) 14 %; MCH 26.3 pg (25.0-35.0); MCHC 30.6 g/dL (31.0-37.0); MCV 85.8 fL (80.0-100.0); Mean Platelet Volume 7.6; Monocytes # (A) 0.6 k/uL (0-1.0); Monocytes % (A) 6 %; Neutrophils # (A) 7.5 k/uL (1.3-7.7); Neutrophils % (A) 74 %; RBC 4.21 m/uL (3.80-5.40); RDW 14.4 % (11.5-15.5); WBC 10.2 k/uL (3.8-10.6); WBC (Perox) 10.28
--- NOTE | 2017-08-18 10:44 | XR ---
EXAMINATION TYPE: XR chest 2V DATE OF EXAM: 08/18/2017 HISTORY: difficulty breathing. REFERENCE: Previous study dated 08/16/2017. FINDINGS: The lungs are overinflated but clear. Pleural spaces are clear. Heart size is upper limits of normal. IMPRESSION: COPD.
[2017-08-18 10:50] LABS: Prothrombin Time 10.1 sec (9.0-12.0)
[2017-08-18 11:05] LABS: ALT 34 U/L (9-52); AST 31 U/L (14-36); Alkaline Phosphatase 143 U/L (38-126); Anion Gap 9 mmol/L; Blood Urea Nitrogen 12 mg/dL (7-17); Calcium 9.4 mg/dL (8.4-10.2); Carbon Dioxide 33 mmol/L (22-30); Chloride 99 mmol/L (98-107); Glucose 197 mg/dL (74-99); Magnesium 1.7 mg/dL (1.6-2.3); Non-African American GFR(MDRD) >60 (>60 ml/min/1.73 sqM); Sodium 141 mmol/L (137-145); Total Bilirubin 0.4 mg/dL (0.2-1.3); Total Protein 6.6 g/dL (6.3-8.2)
[2017-08-18 11:07] LABS: Amorphous Sediment,Urine Rare /hpf; Appearance,Urine Cloudy (Clear); Bilirubin,Urine Negative (Negative); Glucose,Urine (UA) Trace (Negative); Ketones,Urine Negative (Negative); Leukocyte Esterase,Urine Negative (Negative); Mucus,Urine Rare /hpf; Nitrite,Urine Negative (Negative); PH, Urine 5.5 (5.0-8.0); Particle Count 11097; Protein,Urine 2+ (Negative); RBC,Urine 2 /hpf (0-5); Specific Gravity,Urine 1.016 (1.001-1.035); Squamous Epithelial Cell,Urine 1 /hpf (0-4); UA Billing (MACRO vs. MICRO) MICRO; Urobilinogen,Urine <2.0 mg/dL (<2.0)
[2017-08-18 12:07] LABS: Creatine Kinase MB 4.5 ng/mL (0.0-2.4); Troponin I 0.98 ng/mL (0.000-0.034)
[2017-08-18] MEDS ORDERED: HEPARIN SODIUM,PORCINE 5,000 UNIT/ML 1 ML VIAL IV ONE (12:17)
[2017-08-18] MEDS ORDERED: NITROGLYCERIN SL TABS 0.4 MG TAB SUBLINGUAL PRN ×2 (12:20→13:25)
[2017-08-18] MEDS ORDERED: ASPIRIN 81 MG PO STA (12:20)
[2017-08-18] MEDS: HEPARIN SODIUM,PORCINE/D5W PMX 25,000 UNIT in DEXTROSE/WATER 1 500ML.BAG IV SCH (12:53)
--- NOTE | 2017-08-18 13:23 | P.HPIM ---
History of Present Illness H&P Date: 08/18/17 Chief Complaint: Generalised weakness, SOB, N/V, heart burn 71 Year-Old female with a previous medical history significant for hypertension and hypertensive cardiovascular disease, hyperlipidemia, insulin- dependent diabetes mellitus type 2, abdominal aortic aneurysm , carotid artery disease, COPD on home 2 L was hospitalized at [facility] for right middle lobe pneumonia and COPD exacerbation and was recently discharged around November 2016 , the patient was discharged home and came back a few days later with significant abdominal pain radiating to the back associated with nausea but no vomiting patient at that time was hospitalized under were service and she was seen and evaluated by gastroenterology as well as general surgery underwent a CT abdomen pelvis with contrast and at the same time underwent ultrasound of the gallbladder and EGD she was diagnosed with esophagitis as well as cholelithiasis underwent laparoscopic cholecystectomy and the patient was discharged home in a stable condition. 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 She was seen in February for acute diverticulitis for which patient was treated with antibiotic and sent home.he was admitted on 08/15 for shortness of breath associated with substernal chest pain worsening with exertion. She also complained of worsening swelling of lower extremity. Workup included echocardiogram was done which was a difficult study and pressures of the heart could not be obtained but EF was between 55-60% with no abnormality in the wall seen. Patient underwent stress test that showed possible small area of ischemia at the base of the heart. Dr. Summers decided to continue her on statins, Imdur and changed atenolol to Toprol-XL 50 mg daily. Patient was also seen by Dr. Woo regarding concern for cellulitis of the lower extremities. Venous Doppler studies of the lower extremities negative for DVT bilaterally. Dr. Woo noted that this was a chronic dermatitis of the lower extremities, he recommended transcend alone cream and follow up with the dermatology appointment that has been arranged. Patient was sent home on a short course of antibiotic treatment. Patient came back to the ED today with worsening weakness and shortness of breath. According to the daughter bedside patient was unable to even lift herself and eat on her own vomiting last night. She also endorses heart burn, nausea and vomiting. Patient states that her shortness of breath has also worsened. Patient denies any abdominal pain, hematochezia Iuliano hematemesis, melena, dysuria, hematuria or urinary frequency. Patient denies any cough production, fever, chills or wheezing she uses 2 L off oxygen at baseline for her COPD but is currently using 3 L. Workup done in the ED includes CBC, BMP which was unremarkable. Patient did have a evaluated CK-MB and troponin of 0.98. Patient's BNP has increased from 300 to 1500 in the past [address] depression in V4 V5 and V6. EKG 3 days ago was normal sinus rhythm. Patient started on heparin drip and is admitted cardiology consult will be placed and patient may likely need a cardiac catheterization. Review of Systems Constitutional: Denies chills, Denies fever, endorses significant lethargy and malaise, endorses poor appetite, endorses weakness, Denies weight loss Eyes: denies decreased vision, denies diplopia, denies discharge, denies pain Ears: deny: decreased hearing Ears, nose, mouth and throat: Denies dental pain, Denies headache, Denies nasal discharge, Denies nose pain Cardiovascular: Denies chest pain but worsening substernal heartburn, decreased exercise tolerance, edema of the lower extremities, Denies high blood pressure, Denies irregular heart beat, Denies palpitations, Denies paroxysmal nocturnal dyspnea, Denies rapid heart beat, endorses significant shortness of breath Khanna use the bathroom and vomited on herself Respiratory: Denies congestion, Denies cough, Denies cough with sputum, endorses dyspnea, there is 2 L home oxygen, Denies wheezing Gastrointestinal: Denies abdominal pain, Denies change in bowel habits, Denies coffee ground emesis, Denies early satiety, Denies excessive gas, endorses heartburn, Denies hematemesis, Denies hematochezia, Denies loss of appetite, Denies nausea, Denies vomiting Genitourinary: Denies dysuria, Denies flank pain, Denies kidney stones, Denies menorrhagia, Denies urgency, Denies urinary frequency Musculoskeletal: Endorses limitation of motion, Denies morning stiffness, Denies muscle cramps Integumentary: Lower extremity chronic dermatitis rash, Denies wounds, Denies brittle nails, Denies change in hair/nails, Denies darkening of skin Neurological: Denies balance difficulties, Denies change in speech, Denies double vision, Denies gait dysfunction, Denies loss of vision, Denies motor disturbance, Denies numbness, Denies paralysis, Denies paresthesias, Denies seizures Psychiatric: Denies anxiety, Denies depression Endocrine: Denies excessive sweating, Denies excessive thirst, Denies high blood sugars, Denies palpitations Hematologic/Lymphatic: Denies easy bruising, Denies lymphadenopathy Past Medical History Past Medical History: Cancer, COPD, Diabetes Mellitus, GERD/Reflux, Hearing Disorder / Deafness, Hyperlipidemia, Hypertension, Osteoarthritis (OA), Pneumonia, Skin Disorder, Vascular Disorder Additional Past Medical History / Comment(s): L BREAST CANCER WITH LUMPECTOMY- WAS TO HAVE RADIATION TXS BUT HASN'T YET D/T OTHER HEALTH PROBLEMS, HOME O2 PRN , ABDOMINAL AORTIC ANEURYSM, CARATID ARTERY DISEASE, IDDM TYPE II, [place] BILATERALLY, ATHRITIS MULTIPLE JOINTS, NEPHROLITHIASIS-PT PASSED STONE ON HER OWN, PSORIASIS, DIVERTICULAR DISEASE, ALLERGIC RHINITIS. History of Any Multi-Drug Resistant Organisms: None Reported Past Surgical History: Breast Surgery, Section, Cholecystectomy Additional Past Surgical History / Comment(s): LEFT BREAST BIOPSY R/T POSITIVE MAMMOGRAM/lumpectomy, angiogram with the celiac trunk dilatation with stent placement of the SMA, BILATERAL OOPHORECTOMY/SALPINGECTOMY, EGD. Past Anesthesia/Blood Transfusion Reactions: No Reported Reaction Past Psychological History: No Psychological Hx Reported Smoking Status: Former smoker (smokes one pack a day for 30 years) Past Alcohol Use History: None Reported Past Drug Use History: None Reported Additional History: Patient lives with her daughter. She no longer drives but her daughter is able to take her to appointments. She has home oxygen when she wears when necessary - Past Family History Brother(s) Family Medical History: Congestive Heart Failure (CHF), Myocardial Infarction ( [place]) Mother Additional Family Medical History / Comment(s): BREAST CANCER WITH METS TO LIVER AND BONES. Father Family Medical History: CVA/TIA Daughter(s) Family Medical History: No Reported History Medications and Allergies Home Medications Medication Instructions Recorded Confirmed Type Enalapril [Vasotec] 5 mg PO DAILY 01/06/15 08/18/17 History Isosorbide Mononitrate ER [Imdur] 30 mg PO DAILY 01/06/15 08/18/17 History Insulin Aspart [NovoLOG] 20 unit SQ AC-TID 12/09/16 08/18/17 History Insulin Glargine,Hum.rec.anlog 70 units SQ HS 12/09/16 08/18/17 History [Toujeo Solostar] Atorvastatin [Lipitor] 40 mg PO HS 03/10/17 08/18/17 History Clopidogrel [Plavix] 75 mg PO DAILY 03/10/17 08/18/17 History Aspirin EC [Ecotrin Low Dose] 81 mg PO DAILY #30 tablet. 08/16/17 08/18/17 Rx Cephalexin [Keflex] 500 mg PO Q8HR #21 cap 08/16/17 08/18/17 Rx Metoprolol Succinate (ER) [Toprol 50 mg PO DAILY #30 tab 08/16/17 08/18/17 Rx XL] Nitroglycerin Sl Tabs [Nitrostat] 0.4 mg SUBLINGUAL Q5M PRN #25 tab 08/16/17 Rx Allergies Allergy/AdvReac Type Severity Reaction Status Date / Time azithromycin Allergy Rash/Hives Verified 08/18/17 11:34 Physical Exam Vitals: Vital Signs Temp Pulse Resp BP Pulse Ox 08/18/17 11:40 67 16 153/69 99 08/18/17 09:28 97.6 F 83 20 179/75 99 Intake and Output 08/17/17 08/18/17 08/18/17 22:59 06:59 14:59 Other: Weight 79.379 kg Patient Weight 08/19/17 06:59 Weight 79.379 kg - Constitutional General appearance: cooperative, in moderate distress, appears significantly weaker than the previous admission , obese - EENT Eyes: anicteric sclerae, PERRLA, normal appearance ENT: hearing grossly normal - Neck Neck: no lymphadenopathy, normal ROM, no other, no rigidity, no stridor, no thyromegaly - Respiratory Respiratory: bilateral: CTA, negative: diminished, dullness, rales, rhonchi - Cardiovascular Rhythm: regular Heart sounds: normal: S1, S2 Abnormal Heart Sounds: no systolic murmur, no diastolic murmur, no rub, no S3 Gallop, no S4 Gallop, no click, Lower extremity edema present 2+, difficult to palpate dorsalis pedis and popliteal - Gastrointestinal General gastrointestinal: normal bowel sounds, soft - Integumentary Integumentary: Psoriatic rash seen on the elbows bilaterally with 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 - Neurologic Neurologic: CNII-XII intact, and generalized weakness present ,patient is moving her on her extremities without any difficulty - Musculoskeletal Musculoskeletal: gait not assessed, strength equal bilaterally - Psychiatric Psychiatric: A&O x's 3, appropriate affect Results CBC & Chem 7: 08/18/17 09:48 08/18/17 09:48 Labs: Abnormal Lab Results - Last 24 Hours (Table) 08/18/17 08/18/17 08/18/17 Range/Units 09:48 09:48 09:48 Hgb 11.1 L (11.4-16.0) gm/dL MCHC 30.6 L (31.0-37.0) g/dL APTT (22.0-30.0) sec Carbon Dioxide 33 H (22-30) mmol/L Glucose 197 H (74-99) mg/dL Alkaline Phosphatase 143 H (38-126) U/L CK-MB (CK-2) 4.5 H* (0.0-2.4) ng/mL Troponin I 0.980 H* (0.000-0.034) ng/mL Urine Appearance (Clear) Urine Protein (Negative) Urine Glucose (UA) (Negative) Urine Blood (Negative) Amorphous Sediment (None) /hpf Urine Mucus (None) /hpf 08/18/17 08/18/17 Range/Units 09:48 10:45 Hgb (11.4-16.0) gm/dL MCHC (31.0-37.0) g/dL APTT 19.0 L (22.0-30.0) sec Carbon Dioxide (22-30) mmol/L Glucose (74-99) mg/dL Alkaline Phosphatase (38-126) U/L CK-MB (CK-2) (0.0-2.4) ng/mL Troponin I (0.000-0.034) ng/mL Urine Appearance Cloudy H (Clear) Urine Protein 2+ H (Negative) Urine Glucose (UA) Trace H (Negative) Urine Blood Trace H (Negative) Amorphous Sediment Rare H (None) /hpf Urine Mucus Rare H (None) /hpf Thrombosis Risk Factor Assmnt - DVT/VTE Prophylaxis DVT/VTE Prophylaxis: Mechanical Prophylaxis ordered Assessment and Plan Plan: #1 Atypical chest pain associated with shortness of breath-likely secondary to ACS. Patient's troponin has increased to 0.98 and was negative in the previous admission. EKG changes including ST depression in V4 V5 6 present . EKG was normal sinus rhythm. BNP has worsened from 300 to 1500 in just 3 days. Cardiology consult to rule out ACS. Patient would likely need cardiac catherization to r/o ACS as stress test done in the last admission was positive for reversible defect at the base of the heart. Repeat ECHO ordered for new or early dysfunction. Continue heparin drip overnight nothing by mouth after midnight, continue Imdur 30 mg orally once every day.Continue aspirin 81 mg once every day, Plavix 75 mg orally once every day.will continue with metoprolol XL 50 mg orally daily that was started during the last admission, continue enalapril and atorvastatin 2. Chronic dermatitis of lower extremity- Dr. Reynolds was consulted in the previous admission, was not suspicious of infection. Continue triamcinolone cream twice a day. Lower extremity swelling could be related to the venous stasis or CHF as BNP is elevated. Ultrasound lower extremity ordered to rule out DVT was negative 3 days ago, leg swelling has improved since. 3 acute on chronic hypoxic respiratory failure secondary to severe COPD- patient uses 2 L of oxygen as needed but has been requiring 2 L of oxygen all the time. He wheezing was noted but no crackles on examination chest x-ray was clear with no sign of heart failure. 4. 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 Asymptomatic Continue aspirin 81 mg once every day, Plavix 75 mg orally once every day, continue Imdur 30 mg orally once every day. 5. Diabetes Mellitus type 2.Home meds Toujeo 70 units subcutaneously qhs and Humalog per SSI,BGM tid. Toujeo 30 units and 10 unts TID with humalog while NPO 6. Hypertension. will continue with Metoprolol 25 mg orally daily, enalapril and imdur 7. Hyperlipidemia. low cholesterol diet. Continue Lipitor 40 mg orally once every day. 8. Breast cancer post left lumpectomy. 9. Allergic Rhinitis. asymptomatic 10. DVT prophylaxis. on heparin drip 11. GI prophylaxis. continue with PPI. 12. No code. ( Patient was full code in the previous admission)
[2017-08-18] MEDS ORDERED: ALPRAZolam 0.25 MG TAB PO PRN (13:25)
[2017-08-18] MEDS ORDERED: ALPRAZolam 0.5 MG TAB PO PRN (13:25)
[2017-08-18] MEDS ORDERED: ATORVASTATIN 80 MG TAB PO STA (13:25)
[2017-08-18] MEDS ORDERED: ASPIRIN 325 MG TAB PO STA (13:25)
[2017-08-18] MEDS ORDERED: SODIUM CHLORIDE 0.9% 1,000 ML in EMPTY BAG 1 BAG IV ONE (13:25)
[2017-08-18] MEDS ORDERED: METOPROLOL SUCCINATE (ER) 50 MG TAB.ER.24H PO SCH (13:30)
[2017-08-18] MEDS ORDERED: ONDANSETRON 4 MG/2 ML VIAL IVP PRN (13:36)
[2017-08-18 13:46] LABS: Glucose,Whole Blood 203 mg/dL (75-99)
--- NOTE | 2017-08-18 14:06 | CONS ---
CONSULTATION ATTENDING: Dr. Lewis. Mrs. Crawley is a 71-year-old female with a history of hypertension, hyperlipidemia, diabetes mellitus, who presented with symptoms of progressive fatigue, lack of energy and shortness of breath. She was in the hospital and was discharged home 2 days ago. During her last admission, she underwent a myocardial perfusion imaging that revealed a possible small area of ischemia at the base of the heart and the decision was made to treat her clinically. The patient had a normal left ventricular systolic function. 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 After her discharge, she became more fatigued, more short of breath. She continued to have the heartburn. It is unclear if she was having chest discomfort. According to the daughter, she has been very weak with lack of significant energy. She denies any dizziness or palpitations. She denies any clear PND, orthopnea. She has some peripheral edema. According to her, she has been seen by Dr. Kang in the past and underwent cardiac catheterization over 10 years ago and was told there was no evidence of obstructive coronary disease and she was told that she had a broken heart syndrome, although details of that are not available to me at this time. Her coronary risk factors are positive for hypertension, hyperlipidemia, diabetes. She is nonsmoker. MEDICATIONS AT TIME OF ADMISSION: Include: 1. Metoprolol succinate 50 mg daily. 2. Isosorbide mononitrate 30 mg daily. 3. Insulin. 4. Enalapril 5 mg daily. 5. Plavix 75 mg daily. 6. Lipitor 40 mg daily and. 7. Aspirin once a day. REVIEW OF SYSTEMS: RESPIRATORY: She had dyspnea on exertion. No recent wheezing or cough. GI: She has the nausea, the heartburn. She had prior history of the percutaneous revascularization of her celiac artery. : No recent dysuria or hematuria. NERVOUS: No stroke or seizure. PHYSICAL EXAMINATION: She is a 71-year-old female; appears tired, not dyspneic. Blood pressure 150/90 with a heart rate in the 60s. HEAD: Normocephalic. EYES: Sclerae anicteric. NECK: No bruit. LUNGS: With a few crackles at the bases. HEART: Regular rate and rhythm. S1, S2. No S3 with systolic murmur at the base, ejection type. No diastolic murmur. ABDOMEN: Soft, nontender. Positive bowel sounds. No megaly. EXTREMITIES: +1 edema with evidence of psoriatic rash and dermatitis. LAB DATA: Revealed a troponin of 0.98. NT-proBNP of 1500. BUN and creatinine of 12 and 0.87, potassium 5.0. Hemoglobin of 11.1. EKG revealed a sinus mechanism, normal axis and intervals with minor nonspecific ST-T wave changes. A chest x-ray shows no acute infiltrate. IMPRESSION: 1. Evidence of non ST-segment elevation myocardial infarction. The patient had a recent myocardial perfusion imaging that revealed a small area of ischemia. 2. There is a long-standing history of diabetes. 3. Hypertension. 4. Hyperlipidemia. RECOMMENDATION: Will give the patient IV diuretics. I will tentatively scheduled to undergo cardiac catheterization on Sunday. The patient has been started on IV heparin. I have discussed those findings with the patient and her family. If she has any change in her status, then the procedure will be done earlier. Depending on her progress, further recommendation will be made. Thank you for this consult. Will follow with you. MMODL / IJN: [id number] /
[2017-08-18] MEDS: FUROSEMIDE 10 MG/ML 4 ML VIAL IV SCH ×2 (15:12→20:54)
[2017-08-18] MEDS: HYDROmorphone 1 MG/ML 1 ML SYRINGE IVP PRN (15:29)
[2017-08-18 16:35] LABS: Glucose,Whole Blood 291 mg/dL (75-99)
[2017-08-18 16:52] LABS: Troponin I 1.57 ng/mL (0.000-0.034)
[2017-08-18] MEDS: INSULIN LISPRO (humaLOG) 300 UNIT/3 ML VIAL SQ SCH ×2 (17:26→20:57)
[2017-08-18] MEDS: CEPHALEXIN 500 MG CAP PO SCH ×2 (17:26→22:54)
[2017-08-18] MEDS: NITROGLYCERIN OINT 1 INCH/GM PACKET TOPICAL SCH ×2 (17:29→22:55)
[2017-08-18] MEDS ORDERED: INSULIN LISPRO (humaLOG) 300 UNIT/3 ML VIAL SQ SCH (17:30)
[2017-08-18] MEDS: INSULIN GLARGINE 100 UNIT/ML 10 ML VIAL SQ SCH (20:54)
[2017-08-18] MEDS: TRIAMCINOLONE ACET 0.1% OINTMENT 15 GM TUBE TOPICAL SCH (20:55)
[2017-08-18] MEDS: HEPARIN SODIUM,PORCINE 5,000 UNIT/ML 1 ML VIAL IV PRN (20:55)
[2017-08-18 20:58] LABS: Glucose,Whole Blood 215 mg/dL (75-99)
[2017-08-18] MEDS ORDERED: ATORVASTATIN 40 MG TAB PO SCH (21:00)
[2017-08-18] MEDS ORDERED: INSULIN GLARGINE 100 UNIT/ML 10 ML VIAL SQ SCH (21:00)
[2017-08-18] MEDS ORDERED: INSULIN GLARGINE HUM REC ANLOG 30 UNIT SQ SCH (21:00)
[2017-08-18 22:33] LABS: Creatine Kinase MB 4.1 ng/mL (0.0-2.4); Troponin I 1.83 ng/mL (0.000-0.034)
[2017-08-18] MEDS: ATORVASTATIN 40 MG TAB PO SCH (22:54)
[2017-08-19 02:53] LABS: Basophils % (A) 0 %; CH 25.3; CHCM 28.9; Eosinophils # (A) 0.2 k/uL (0-0.7); Eosinophils % (A) 2 %; HCT 32.9 % (34.0-46.0); HDW 2.76; HGB 9.7 gm/dL (11.4-16.0); Hypochromasia Marked; Luc % (Auto) 2; Lymphocytes # (A) 1.6 k/uL (1.0-4.8); Lymphocytes % (A) 17 %; MCHC 29.5 g/dL (31.0-37.0); MCV 88.2 fL (80.0-100.0); Mean Platelet Volume 7.6; Monocytes # (A) 0.6 k/uL (0-1.0); Monocytes % (A) 6 %; Neutrophils # (A) 6.7 k/uL (1.3-7.7); Neutrophils % (A) 73 %; RBC 3.73 m/uL (3.80-5.40); RDW 14.7 % (11.5-15.5); WBC 9.3 k/uL (3.8-10.6); WBC (Perox) 9.94
[2017-08-19 03:36] LABS: Calcium 9.2 mg/dL (8.4-10.2); Potassium 5.1 mmol/L (3.5-5.1); Total Bilirubin 0.5 mg/dL (0.2-1.3); Total Protein 5.5 g/dL (6.3-8.2)
[2017-08-19] MEDS: HEPARIN SODIUM,PORCINE 5,000 UNIT/ML 1 ML VIAL IV PRN (04:30)
[2017-08-19 06:32] LABS: Glucose,Whole Blood 138 mg/dL (75-99)
[2017-08-19] MEDS: HYDROmorphone 1 MG/ML 1 ML SYRINGE IVP PRN (06:45)
[2017-08-19] MEDS: INSULIN LISPRO (humaLOG) 300 UNIT/3 ML VIAL SQ SCH ×4 (06:45→21:25)
[2017-08-19] MEDS: NITROGLYCERIN OINT 1 INCH/GM PACKET TOPICAL SCH ×4 (06:45→23:11)
[2017-08-19] MEDS ORDERED: NON-FORMULARY DRUG (Enalapril 5 MG) PO SCH (09:00)
[2017-08-19] MEDS ORDERED: ISOSORBIDE MONONITRATE ER 30 MG TAB.ER.24H PO SCH (09:00)
[2017-08-19] MEDS ORDERED: CLOPIDOGREL 75 MG TAB PO SCH (09:00)
[2017-08-19] MEDS ORDERED: ASPIRIN 325 MG TAB PO SCH (09:00)
[2017-08-19] MEDS ORDERED: ASPIRIN 81 MG PO SCH (09:00)
--- NOTE | 2017-08-19 09:03 | XR ---
EXAMINATION TYPE: XR shoulder limited RT , 2 VIEWS DATE OF EXAM ORDERED: 08/19/2017 HISTORY: pain. COMPARISON: None. FINDINGS: There is minimal hypertrophic change in the right AC joint. No fracture or dislocation is seen. IMPRESSION: 1. NO ACUTE OSSEOUS LESION. 2. MINIMAL DEGENERATIVE CHANGE.
--- NOTE | 2017-08-19 09:04 | XR ---
EXAMINATION TYPE: XR chest 1V DATE OF EXAM: 08/19/2017 HISTORY: shortness of breath . REFERENCE: Previous study dated 08/18/2017. FINDINGS: The lungs are overinflated. The heart is mildly enlarged. The lungs are clear. Pleural spac es are clear. IMPRESSION: 1. COPD. 2. CARDIOMEGALY.
[2017-08-19] MEDS: METOPROLOL SUCCINATE (ER) 50 MG TAB.ER.24H PO SCH (10:39)
[2017-08-19] MEDS: TRIAMCINOLONE ACET 0.1% OINTMENT 15 GM TUBE TOPICAL SCH ×2 (10:40→21:01)
[2017-08-19] MEDS: CLOPIDOGREL 75 MG TAB PO SCH (10:40)
[2017-08-19] MEDS: CEPHALEXIN 500 MG CAP PO SCH ×3 (10:40→23:11)
[2017-08-19] MEDS: LISINOPRIL 10 MG TAB PO SCH (10:40)
--- NOTE | 2017-08-19 10:50 | P.PN ---
Subjective 71 Year-Old female with a previous medical history significant for hypertension and hypertensive cardiovascular disease, hyperlipidemia, insulin- dependent diabetes mellitus type 2, abdominal aortic aneurysm , carotid artery disease, COPD on home 2 L was hospitalized at [facility] for right middle lobe pneumonia and COPD exacerbation and was recently discharged around November 2016 , the patient was discharged home and came back a few days later with significant abdominal pain radiating to the back associated with nausea but no vomiting patient at that time was hospitalized under were service and she was seen and evaluated by gastroenterology as well as general surgery underwent a CT abdomen pelvis with contrast and at the same time underwent ultrasound of the gallbladder and EGD she was diagnosed with esophagitis as well as cholelithiasis underwent laparoscopic cholecystectomy and the patient was discharged home in a stable condition. 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 She was seen in February for acute diverticulitis for which patient was treated with antibiotic and sent home.he was admitted on 08/15 for shortness of breath associated with substernal chest pain worsening with exertion. She also complained of worsening swelling of lower extremity. Workup included echocardiogram was done which was a difficult study and pressures of the heart could not be obtained but EF was between 55-60% with no abnormality in the wall seen. Patient underwent stress test that showed possible small area of ischemia at the base of the heart. Dr. Summers decided to continue her on statins, Imdur and changed atenolol to Toprol-XL 50 mg daily. Patient was also seen by Dr. Woo regarding concern for cellulitis of the lower extremities. Venous Doppler studies of the lower extremities negative for DVT bilaterally. Dr. Woo noted that this was a chronic dermatitis of the lower extremities, he recommended transcend alone cream and follow up with the dermatology appointment that has been arranged. Patient was sent home on a short course of antibiotic treatment. Patient came back to the ED today with worsening weakness and shortness of breath. According to the daughter bedside patient was unable to even lift herself and eat on her own vomiting last night. She also endorses heart burn, nausea and vomiting. Patient states that her shortness of breath has also worsened. Patient denies any abdominal pain, hematochezia Iuliano hematemesis, melena, dysuria, hematuria or urinary frequency. Patient denies any cough production, fever, chills or wheezing she uses 2 L off oxygen at baseline for her COPD but is currently using 3 L. Workup done in the ED includes CBC, BMP which was unremarkable. Patient did have a evaluated CK-MB and troponin of 0.98. Patient's BNP has increased from 300 to 1500 in the past [address] depression in V4 V5 and V6. EKG 3 days ago was normal sinus rhythm. Patient started on heparin drip and is admitted cardiology consult will be placed and patient may likely need a cardiac catheterization. 08/19: Patient was seen and evaluated today. She was noted to be resting comfortably in bed in no acute distress. She did receive a dose of IV Dilaudid for some right shoulder pain. She was very drowsy this morning, but easily arousable. Nursing staff states they had some difficulty arousing patient right after receiving Dilaudid. For this reason Dilaudid was discontinued. A shoulder x-ray was ordered, arterial ultrasound bilateral lower extremities also ordered to rule out peripheral artery disease. She denies any chest pain or shortness of breath, she continues to receive IV heparin, she is scheduled for a cardiac cath on Sunday with Dr. Castorena. Objective - Vital Signs Vital signs: Vital Signs Temp 99.1 F 08/19/17 04:00 Pulse 73 08/19/17 04:00 Resp 18 08/19/17 04:00 BP 107/51 08/19/17 04:00 Pulse Ox 99 08/19/17 04:00 Intake & Output 08/18/17 08/19/17 08/19/17 18:59 06:59 18:59 Intake Total 120 517.085 Balance 120 517.085 Weight 80.5 kg 80 kg Intake: IV 180 Heparin Sodium,Porcine/ 180 D5w Pmx 25,000 unit In Dextrose/Water 1 500ml. bag @ 12 UNITS/KG/HR 19. 05 mls/hr IV .Q24H [facility], [facility]–1983 Rx #:[id number] Intake, IV Titration 337.085 Amount Heparin Sodium,Porcine/ 337.085 D5w Pmx 25,000 unit In Dextrose/Water 1 500ml. bag @ 12 UNITS/KG/HR 19. 05 mls/hr IV .Q24H FOR[facility], [facility]1983 Rx #:[id number] Oral 120 Other: Voiding Method Toilet # Voids 1 - Exam - Constitutional General appearance: cooperative, in moderate distress, appears significantly weaker than the previous admission , obese - EENT Eyes: anicteric sclerae, PERRLA, normal appearance ENT: hearing grossly normal - Neck Neck: no lymphadenopathy, normal ROM, no other, no rigidity, no stridor, no thyromegaly - Respiratory Respiratory: bilateral: CTA, negative: diminished, dullness, rales, rhonchi - Cardiovascular Rhythm: regular Heart sounds: normal: S1, S2 Abnormal Heart Sounds: no systolic murmur, no diastolic murmur, no rub, no S3 Gallop, no S4 Gallop, no click, Lower extremity edema present 2+, difficult to palpate dorsalis pedis and popliteal - Gastrointestinal General gastrointestinal: normal bowel sounds, soft - Integumentary Integumentary: Psoriatic rash seen on the elbows bilaterally with 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 - Neurologic Neurologic: CNII-XII intact, and generalized weakness present ,patient is moving her on her extremities without any difficulty - Musculoskeletal Musculoskeletal: gait not assessed, strength equal bilaterally - Psychiatric Psychiatric: A&O x's 3, appropriate affect - Labs CBC & Chem 7: 08/19/17 02:21 08/19/17 02:21 Labs: Abnormal Lab Results - Last 24 Hours (Table) 08/18/17 08/18/17 08/18/17 Range/Units 09:48 09:48 09:48 RBC (3.80-5.40) m/uL Hgb 11.1 L (11.4-16.0) gm/dL Hct (34.0-46.0) % MCHC 30.6 L (31.0-37.0) g/dL APTT (22.0-30.0) sec Carbon Dioxide 33 H (22-30) mmol/L BUN (7-17) mg/dL Creatinine (0.52-1.04) mg/dL Glucose 197 H (74-99) mg/dL POC Glucose (mg/dL) (75-99) mg/dL AST (14-36) U/L ALT (9-52) U/L Alkaline Phosphatase 143 H (38-126) U/L CK-MB (CK-2) 4.5 H* (0.0-2.4) ng/mL Troponin I 0.980 H* (0.000-0.034) ng/mL Total Protein (6.3-8.2) g/dL Albumin (3.5-5.0) g/dL HDL Cholesterol (40-60) mg/dL Urine Appearance (Clear) Urine Protein (Negative) Urine Glucose (UA) (Negative) Urine Blood (Negative) Amorphous Sediment (None) /hpf Urine Mucus (None) /hpf 08/18/17 08/18/17 08/18/17 Range/Units 09:48 10:45 13:43 RBC (3.80-5.40) m/uL Hgb (11.4-16.0) gm/dL Hct (34.0-46.0) % MCHC (31.0-37.0) g/dL APTT 19.0 L (22.0-30.0) sec Carbon Dioxide (22-30) mmol/L BUN (7-17) mg/dL Creatinine (0.52-1.04) mg/dL Glucose (74-99) mg/dL POC Glucose (mg/dL) 203 H (75-99) mg/dL AST (14-36) U/L ALT (9-52) U/L Alkaline Phosphatase (38-126) U/L CK-MB (CK-2) (0.0-2.4) ng/mL Troponin I (0.000-0.034) ng/mL Total Protein (6.3-8.2) g/dL Albumin (3.5-5.0) g/dL HDL Cholesterol (40-60) mg/dL Urine Appearance Cloudy H (Clear) Urine Protein 2+ H (Negative) Urine Glucose (UA) Trace H (Negative) Urine Blood Trace H (Negative) Amorphous Sediment Rare H (None) /hpf Urine Mucus Rare H (None) /hpf 08/18/17 08/18/17 08/18/17 Range/Units 16:00 16:33 20:56 RBC (3.80-5.40) m/uL Hgb (11.4-16.0) gm/dL Hct (34.0-46.0) % MCHC (31.0-37.0) g/dL APTT (22.0-30.0) sec Carbon Dioxide (22-30) mmol/L BUN (7-17) mg/dL Creatinine (0.52-1.04) mg/dL Glucose (74-99) mg/dL POC Glucose (mg/dL) 291 H 215 H (75-99) mg/dL AST (14-36) U/L ALT (9-52) U/L Alkaline Phosphatase (38-126) U/L CK-MB (CK-2) 5.0 H* (0.0-2.4) ng/mL Troponin I 1.570 H* (0.000-0.034) ng/mL Total Protein (6.3-8.2) g/dL Albumin (3.5-5.0) g/dL HDL Cholesterol (40-60) mg/dL Urine Appearance (Clear) Urine Protein (Negative) Urine Glucose (UA) (Negative) Urine Blood (Negative) Amorphous Sediment (None) /hpf Urine Mucus (None) /hpf 08/18/17 08/19/17 08/19/17 Range/Units 21:35 02:21 02:21 RBC 3.73 L (3.80-5.40) m/uL Hgb 9.7 L (11.4-16.0) gm/dL Hct 32.9 L (34.0-46.0) % MCHC 29.5 L (31.0-37.0) g/dL APTT (22.0-30.0) sec Carbon Dioxide 31 H (22-30) mmol/L BUN 24 H (7-17) mg/dL Creatinine 1.30 H (0.52-1.04) mg/dL Glucose 166 H (74-99) mg/dL POC Glucose (mg/dL) (75-99) mg/dL AST 100 H (14-36) U/L ALT 92 H (9-52) U/L Alkaline Phosphatase 138 H (38-126) U/L CK-MB (CK-2) 4.1 H* (0.0-2.4) ng/mL Troponin I 1.830 H* (0.000-0.034) ng/mL Total Protein 5.5 L (6.3-8.2) g/dL Albumin 2.9 L (3.5-5.0) g/dL HDL Cholesterol 32 L (40-60) mg/dL Urine Appearance (Clear) Urine Protein (Negative) Urine Glucose (UA) (Negative) Urine Blood (Negative) Amorphous Sediment (None) /hpf Urine Mucus (None) /hpf 08/19/17 08/19/17 Range/Units 02:21 06:17 RBC (3.80-5.40) m/uL Hgb (11.4-16.0) gm/dL Hct (34.0-46.0) % MCHC (31.0-37.0) g/dL APTT 38.3 H (22.0-30.0) sec Carbon Dioxide (22-30) mmol/L BUN (7-17) mg/dL Creatinine (0.52-1.04) mg/dL Glucose (74-99) mg/dL POC Glucose (mg/dL) 138 H (75-99) mg/dL AST (14-36) U/L ALT (9-52) U/L Alkaline Phosphatase (38-126) U/L CK-MB (CK-2) (0.0-2.4) ng/mL Troponin I (0.000-0.034) ng/mL Total Protein (6.3-8.2) g/dL Albumin (3.5-5.0) g/dL HDL Cholesterol (40-60) mg/dL Urine Appearance (Clear) Urine Protein (Negative) Urine Glucose (UA) (Negative) Urine Blood (Negative) Amorphous Sediment (None) /hpf Urine Mucus (None) /hpf Assessment and Plan Plan: 1 .Atypical chest pain associated with shortness of breath-likely secondary to ACS. Patient's troponin has increased to 0.98 and was negative in the previous admission. EKG changes including ST depression in V4 V5 6 present. EKG was normal sinus rhythm. BNP has worsened from 300 to 1500 in just 3 days. Cardiology consult to rule out ACS. Patient is scheduled for a cardiac catheterization on Sunday. Stress test done in the last admission was positive for reversible defect at the base of the heart. Repeat ECHO ordered for new or early dysfunction. Continue heparin drip overnight nothing by mouth after midnight, continue Imdur 30 mg orally once every day.Continue aspirin 81 mg once every day, Plavix 75 mg orally once every day, will continue with metoprolol XL 50 mg orally daily that was started during the last admission, continue enalapril and atorvastatin 2. Chronic dermatitis of lower extremity- Dr. Reynolds was consulted in the previous admission, was not suspicious of infection. Continue triamcinolone cream twice a day. Lower extremity swelling could be related to the venous stasis or CHF as BNP is elevated. Ultrasound lower extremity ordered to rule out DVT was negative 3 days ago, arterial ultrasound ordered of bilateral lower extremities to rule out PAD. 3 acute on chronic hypoxic respiratory failure secondary to severe COPD- patient uses 2 L of oxygen as needed but has been requiring 2 L of oxygen all the time. He wheezing was noted but no crackles on examination chest x-ray was clear with no sign of heart failure. 4. 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 Asymptomatic Continue aspirin 81 mg once every day, Plavix 75 mg orally once every day, continue Imdur 30 mg orally once every day. 5. Diabetes Mellitus type 2.Home meds Toujeo 70 units subcutaneously qhs and Humalog per SSI,BGM tid. Toujeo 30 units and 10 unts TID with humalog while NPO 6. Hypertension. will continue with Metoprolol 25 mg orally daily, enalapril and imdur 7. Hyperlipidemia. low cholesterol diet. Continue Lipitor 40 mg orally once every day. 8. Breast cancer post left lumpectomy. 9. Allergic Rhinitis. asymptomatic 10. DVT prophylaxis. on heparin drip 11. GI prophylaxis. continue with PPI. 12. No code. ( Patient was full code in the previous admission) The above impression and plan of care have been discussed and directed by signing physician. [place] nurse practitioner acting as scribe for signing physician.
--- NOTE | 2017-08-19 11:55 | PN ---
PROGRESS NOTE Mrs. Crawley is a 71-year-old female who presented with symptoms of fatigue and heartburn. She was noted to have evidence of non ST-segment elevation myocardial infarction. She continued to be dyspneic this morning. She has no chest pain. She has right shoulder discomfort that is positional. No palpitation. She continues to be on aspirin once a day, Lipitor 4 mg daily, Plavix 75 mg daily, Lasix 40 mg IV q.12 hours, lisinopril 10 mg daily, metoprolol tartrate 50 mg daily, and nitroglycerin paste 1 inch q.6 hours. PHYSICAL EXAMINATION: Blood pressure 107/50 with a heart in 70. LUNGS: No wheezes. HEART: Regular rate and rhythm. S1, S2. No S3. No rub, with a systolic murmur. ABDOMEN: Soft, nontender. EXTREMITIES: Chronic skin changes with mild erythema and decrease in edema. LAB DATA: Lab data revealed BUN and creatinine 24 and 1.3, potassium 5.1, hemoglobin of 9.7. Her troponin peaked at 1.8. IMPRESSION: 1. Non ST-segment elevation myocardial infarction. 2. Worsening renal function. 3. Hypertension. 4. Hyperlipidemia. 5. Diabetes mellitus. 6. History of celiac artery stenting. RECOMMENDATION: From the cardiac standpoint, I will stop her diuretics. We will proceed with cardiac catheterization tomorrow unless there is worsening of her renal function. MMODL / IJN: [id number] /
[2017-08-19 12:22] LABS: Glucose,Whole Blood 222 mg/dL (75-99)
[2017-08-19] MEDS: HEPARIN SODIUM,PORCINE/D5W PMX 25,000 UNIT in DEXTROSE/WATER 1 500ML.BAG IV SCH (14:05)
[2017-08-19 16:44] LABS: Glucose,Whole Blood 197 mg/dL (75-99)
[2017-08-19] MEDS: ATORVASTATIN 40 MG TAB PO SCH (21:00)
[2017-08-19] MEDS: INSULIN GLARGINE 100 UNIT/ML 10 ML VIAL SQ SCH (21:01)
[2017-08-19 21:20] LABS: Glucose,Whole Blood 159 mg/dL (75-99)
[2017-08-20] MEDS ORDERED: IPRATROPIUM-ALBUTEROL 3 ML NEB INHALATION PRN ×2 (00:01→19:27)
[2017-08-20] MEDS: FUROSEMIDE 10 MG/ML 4 ML VIAL IV SCH ×2 (03:25→19:08)
[2017-08-20] MEDS: HEPARIN SODIUM,PORCINE/D5W PMX 25,000 UNIT in DEXTROSE/WATER 1 500ML.BAG IV SCH (03:33)
[2017-08-20 04:02] LABS: ALT 68 U/L (9-52); AST 38 U/L (14-36); Alkaline Phosphatase 128 U/L (38-126); Anion Gap 8 mmol/L; Blood Urea Nitrogen 24 mg/dL (7-17); Calcium 8.5 mg/dL (8.4-10.2); Carbon Dioxide 30 mmol/L (22-30); Chloride 97 mmol/L (98-107); Glucose 187 mg/dL (74-99); Non-African American GFR(MDRD) 50 (>60 ml/min/1.73 sqM); Potassium 4.7 mmol/L (3.5-5.1); Sodium 135 mmol/L (137-145); Total Bilirubin 0.3 mg/dL (0.2-1.3); Total Protein 5.6 g/dL (6.3-8.2)
[2017-08-20] MEDS: NITROGLYCERIN OINT 1 INCH/GM PACKET TOPICAL SCH ×5 (06:18→23:54)
[2017-08-20] MEDS: ASPIRIN 81 MG PO SCH (06:18)
[2017-08-20] MEDS: CEPHALEXIN 500 MG CAP PO SCH ×3 (06:18→22:55)
[2017-08-20] MEDS: METOPROLOL SUCCINATE (ER) 50 MG TAB.ER.24H PO SCH (06:19)
[2017-08-20] MEDS: CLOPIDOGREL 75 MG TAB PO SCH (06:19)
[2017-08-20] MEDS: LISINOPRIL 10 MG TAB PO SCH (06:19)
[2017-08-20] MEDS: INSULIN LISPRO (humaLOG) 300 UNIT/3 ML VIAL SQ SCH ×6 (06:25→21:30)
[2017-08-20 06:29] LABS: Glucose,Whole Blood 183 mg/dL (75-99)
[2017-08-20] MEDS ORDERED: INSULIN GLARGINE 100 UNIT/ML 10 ML VIAL SQ ONE (08:45)
[2017-08-20] MEDS: TRIAMCINOLONE ACET 0.1% OINTMENT 15 GM TUBE TOPICAL SCH ×2 (11:28→21:14)
--- NOTE | 2017-08-20 11:28 | ECHOF ---
Referral Reason:lvf MEASUREMENTS -------- HEIGHT: 170.2 cm WEIGHT: 80.3 kg BP: 150/66 IVSd: 1.2 cm (0.6 - 1.1) LVIDd: 4.5 cm (3.9 - 5.3) LVPWd: 1.2 cm (0.6 - 1.1) IVSs: 1.8 cm LVIDs: 2.7 cm LVPWs: 1.6 cm Ao Diam: 3.0 cm (2.0 - 3.7) AV Cusp: 1.4 cm (1.5 - 2.6) LA Diam: 2.0 cm (2.7 - 3.8) MV EXCURSION: 24.989 mm (> 18.000) MV EF SLOPE: 190 mm/s (70 - 150) EPSS: 1.2 cm MV E Tyler: 0.82 m/s MV DecT: 143 ms MV A Tyler: 0.80 m/s MV E/A Ratio: 1.03 AV maxP.98 mmHg AV meanP.62 mmHg RAP: 5.00 mmHg RVSP: 11.42 mmHg FINDINGS -------- Sinus rhythm. This was a technically difficult study with suboptimal views. The left ventricular size is normal. There is mild concentric left ventricular hypertrophy. Overall left ventricular systolic function is normal with, an EF between 55 - 60 %. The right ventricle is normal in size. The left atrium is normal in size. The right atrium is normal in size. 1.5mg of Definity was utilized for enhancement of images Aortic valve is trileaflet and is mildly thickened. There is mild aortic stenosis present. Peak/mean gradient across the Aortic Valve is 16.98mmHg / 10.62mmHg. The mitral valve leaflets are mildly thickened. Mild mitral annular calcification present. Mild mitral regurgitation is present. Mild tricuspid regurgitation present. The right ventricular systolic pressure, as measured by Doppler, is 11.42mmHg. Pulmonic valve appears structurally normal. The aortic root size is normal. The pericardium is normal. CONCLUSIONS -------- 1. Sinus rhythm. 2. Aortic valve is trileaflet and is mildly thickened. 3. There is mild aortic stenosis present. 4. Peak/mean gradient across the Aortic Valve is 16.98mmHg / 10.62mmHg. 5. The mitral valve leaflets are mildly thickened. 6. Mild mitral annular calcification present. 7. Mild mitral regurgitation is present. 8. Mild tricuspid regurgitation present. 9. The right ventricular systolic pressure, as measured by Doppler, is 11.42mmHg. 10. Pulmonic valve appears structurally normal. 11. The aortic root size is normal. 12. This was a technically difficult study with suboptimal views. 13. The pericardium is normal. 14. The left ventricular size is normal. 15. There is mild concentric left ventricular hypertrophy. 16. Overall left ventricular systolic function is normal with, an EF between 55 - 60 %. 17. The right ventricle is normal in size. 18. The left atrium is normal in size. 19. The right atrium is normal in size. 20. 1.5mg of Definity was utilized for enhancement of images [employer] OFF[employer] SUPERVISOR: Leandra Mehta RDCS
[2017-08-20] MEDS: IPRATROPIUM-ALBUTEROL 3 ML NEB INHALATION SCH ×4 (11:29→19:55)
[2017-08-20 12:01] LABS: Glucose,Whole Blood 152 mg/dL (75-99)
--- NOTE | 2017-08-20 12:48 | P.PN ---
Subjective 71 Year-Old female with a previous medical history significant for hypertension and hypertensive cardiovascular disease, hyperlipidemia, insulin- dependent diabetes mellitus type 2, abdominal aortic aneurysm , carotid artery disease, COPD on home 2 L was hospitalized at [facility] for right middle lobe pneumonia and COPD exacerbation and was recently discharged around November 2016 , the patient was discharged home and came back a few days later with significant abdominal pain radiating to the back associated with nausea but no vomiting patient at that time was hospitalized under were service and she was seen and evaluated by gastroenterology as well as general surgery underwent a CT abdomen pelvis with contrast and at the same time underwent ultrasound of the gallbladder and EGD she was diagnosed with esophagitis as well as cholelithiasis underwent laparoscopic cholecystectomy and the patient was discharged home in a stable condition. 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 where she underwent angiogram through the common femoral artery and at that time and underwent dilatation with balloon angioplasty of the celiac artery as well as the super mesenteric artery and stent placement. She was seen in February for acute diverticulitis for which patient was treated with antibiotic and sent home.he was admitted on 08/15 for shortness of breath associated with substernal chest pain worsening with exertion. She also complained of worsening swelling of lower extremity. Workup included echocardiogram was done which was a difficult study and pressures of the heart could not be obtained but EF was between 55-60% with no abnormality in the wall seen. Patient underwent stress test that showed possible small area of ischemia at the base of the heart. Dr. Summers decided to continue her on statins, Imdur and changed atenolol to Toprol-XL 50 mg daily. Patient was also seen by Dr. Woo regarding concern for cellulitis of the lower extremities. Venous Doppler studies of the lower extremities negative for DVT bilaterally. Dr. Woo noted that this was a chronic dermatitis of the lower extremities, he recommended transcend alone cream and follow up with the dermatology appointment that has been arranged. Patient was sent home on a short course of antibiotic treatment. Patient came back to the ED today with worsening weakness and shortness of breath. According to the daughter bedside patient was unable to even lift herself and eat on her own vomiting last night. She also endorses heart burn, nausea and vomiting. Patient states that her shortness of breath has also worsened. Patient denies any abdominal pain, hematochezia Iuliano hematemesis, melena, dysuria, hematuria or urinary frequency. Patient denies any cough production, fever, chills or wheezing she uses 2 L off oxygen at baseline for her COPD but is currently using 3 L. Workup done in the ED includes CBC, BMP which was unremarkable. Patient did have a evaluated CK-MB and troponin of 0.98. Patient's BNP has increased from 300 to 1500 in the past [address] depression in V4 V5 and V6. EKG 3 days ago was normal sinus rhythm. Patient started on heparin drip and is admitted cardiology consult will be placed and patient may likely need a cardiac catheterization. 08/19: Patient was seen and evaluated today. She was noted to be resting comfortably in bed in no acute distress. She did receive a dose of IV Dilaudid for some right shoulder pain. She was very drowsy this morning, but easily arousable. Nursing staff states they had some difficulty arousing patient right after receiving Dilaudid. For this reason Dilaudid was discontinued. A shoulder x-ray was ordered, arterial ultrasound bilateral lower extremities also ordered to rule out peripheral artery disease. She denies any chest pain or shortness of breath, she continues to receive IV heparin, she is scheduled for a cardiac cath on Sunday with Dr. Castorena. 08/20: Liver function tests are mildly elevated with AST of 38, ALT 68, alkaline phosphatase 128. Acute hepatitis panel and ultrasound liver ordered. Patient states that she had a rough night and was up out of bed frequently and was confused. Xanax will be discontinued. Lower extremity edema is decreased. She is requiring O2 at 3 L and pulse oxing 97%. Blood sugars are elevated for which Lantus was increased and Humalog scheduled added. Also admitted in DuoNeb treatments scheduled. Echocardiogram reveals mild aortic stenosis, mild mitral regurgitation, mild tricuspid regurgitation, EF 55-60%. Patient scheduled for heart catheterization today. Objective - Vital Signs Vital signs: Vital Signs Temp 98.5 F 08/20/17 04:00 Pulse 77 08/20/17 04:00 Resp 18 08/20/17 04:00 BP 150/66 08/20/17 04:00 Pulse Ox 97 08/20/17 04:00 Intake & Output 08/19/17 08/20/17 08/20/17 18:59 06:59 18:59 Intake Total 882.915 515.329 800 Output Total 800 Balance 82.915 515.329 800 Weight 80.5 kg Intake: IV 800 .9 560 Heparin Sodium,Porcine/ 240 D5w Pmx 25,000 unit In Dextrose/Water 1 500ml. bag @ 12 UNITS/KG/HR 19. 05 mls/hr IV .Q24H [facility] Rx #:[id number] Intake, IV Titration 162.915 515.329 Amount Heparin Sodium,Porcine/ 162.915 515.329 D5w Pmx 25,000 unit In Dextrose/Water 1 500ml. bag @ 12 UNITS/KG/HR 19. 05 mls/hr IV .Q24H [facility] Rx #:[id number] Oral 720 Output: Urine 800 Other: Voiding Method Toilet Toilet # Voids 1 3 - Exam Constitutional General appearance: cooperative, in moderate distress, appears significantly weaker than the previous admission , obese - EENT Eyes: anicteric sclerae, PERRLA, normal appearance ENT: hearing grossly normal - Neck Neck: no lymphadenopathy, normal ROM, no other, no rigidity, no stridor, no thyromegaly - Respiratory Respiratory: bilateral: CTA, negative: diminished, dullness, rales, rhonchi - Cardiovascular Rhythm: regular Heart sounds: normal: S1, S2 Abnormal Heart Sounds: no systolic murmur, no diastolic murmur, no rub, no S3 Gallop, no S4 Gallop, no click, Lower extremity edema present 2+, difficult to palpate dorsalis pedis and popliteal - Gastrointestinal General gastrointestinal: normal bowel sounds, soft - Integumentary Integumentary: Psoriatic rash seen on the elbows bilaterally with 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 - Neurologic Neurologic: CNII-XII intact, and generalized weakness present ,patient is moving her on her extremities without any difficulty - Musculoskeletal Musculoskeletal: gait not assessed, strength equal bilaterally - Psychiatric Psychiatric: A&O x's 3, appropriate affect - Labs CBC & Chem 7: 08/19/17 02:21 08/20/17 03:12 Labs: Abnormal Lab Results - Last 24 Hours (Table) 08/18/17 08/19/1708/19/17 Range/Units 16:00 11:28 16:42 APTT (22.0-30.0) sec Sodium (137-145) mmol/L Chloride (98-107) mmol/L BUN (7-17) mg/dL Creatinine (0.52-1.04) mg/dL Glucose (74-99) mg/dL POC Glucose (mg/dL) 222 H 197 H (75-99) mg/dL Hemoglobin A1c 9.0 H (4.2-6.1) % AST (14-36) U/L ALT (9-52) U/L Alkaline Phosphatase (38-126) U/L Total Protein (6.3-8.2) g/dL Albumin (3.5-5.0) g/dL 08/19/17 08/19/17 08/20/17 Range/Units 19:59 21:12 03:09 APTT 36.2 H 38.7 H (22.0-30.0) sec Sodium (137-145) mmol/L Chloride (98-107) mmol/L BUN (7-17) mg/dL Creatinine (0.52-1.04) mg/dL Glucose (74-99) mg/dL POC Glucose (mg/dL) 159 H (75-99) mg/dL Hemoglobin A1c (4.2-6.1) % AST (14-36) U/L ALT (9-52) U/L Alkaline Phosphatase (38-126) U/L Total Protein (6.3-8.2) g/dL Albumin (3.5-5.0) g/dL 08/20/17 08/20/17 Range/Units 03:12 06:24 APTT (22.0-30.0) sec Sodium 135 L (137-145) mmol/L Chloride 97 L (98-107) mmol/L BUN 24 H (7-17) mg/dL Creatinine 1.09 H (0.52-1.04) mg/dL Glucose 187 H (74-99) mg/dL POC Glucose (mg/dL) 183 H (75-99) mg/dL Hemoglobin A1c (4.2-6.1) % AST 38 H (14-36) U/L ALT 68 H (9-52) U/L Alkaline Phosphatase 128 H (38-126) U/L Total Protein 5.6 L (6.3-8.2) g/dL Albumin 3.0 L (3.5-5.0) g/dL Assessment and Plan Plan: 1. Non-ST elevated myocardial infarction. Cardiology consult is appreciated. Patient is scheduled for a cardiac catheterization on Sunday. Repeat ECHO ordered for new or early dysfunction. Continue heparin drip overnight nothing by mouth after midnight, continue Nitropaste, aspirin 81 mg every day, Plavix 75 mg orally once every day, metoprolol XL 50 mg orally daily that was started during the last admission, continue enalapril and atorvastatin 2. Chronic dermatitis of lower extremity- Dr. Reynolds was consulted in the previous admission, was not suspicious of infection. Continue triamcinolone cream twice a day. Lower extremity swelling could be related to the venous stasis or CHF as BNP is elevated. Ultrasound lower extremity ordered to rule out DVT was negative 3 days ago, arterial ultrasound ordered of bilateral lower extremities to rule out PAD. 3 acute on chronic hypoxic respiratory failure secondary to severe COPD- patient uses 2 L of oxygen as needed but has been requiring 2 L of oxygen all the time. He wheezing was noted but no crackles on examination chest x-ray was clear with no sign of heart failure. 4. 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 Asymptomatic Continue aspirin 81 mg once every day, Plavix 75 mg orally once every day, continue Imdur 30 mg orally once every day. 5. Diabetes Mellitus type 2.Home meds Toujeo 70 units subcutaneously qhs and Humalog per SSI,BGM tid. Lantus 40 units at bedtime and Humalog 3 units 3 times daily with meals along with Humalog scale 6. Hypertension. will continue with Metoprolol 50 mg orally daily, enalapril and Nitropaste 7. Hyperlipidemia. low cholesterol diet. Continue Lipitor 40 mg orally once every day. 8. Breast cancer post left lumpectomy. 9. Allergic Rhinitis. asymptomatic 10. DVT prophylaxis. on heparin drip 11. GI prophylaxis. continue with PPI. 12. Elevated liver function tests. Liver ultrasound and acute hepatitis panel ordered. 13. Acute delirium. Xanax discontinued. No code. [facility] Impression and plan of care have been directed as dictated by the signing physician. Sanam Dow nurse practitioner acting as scribe for signing physician.
[2017-08-20] MEDS ORDERED: VERAPAMIL 2.5 MG/ML 2 ML AMP ONE (13:14)
[2017-08-20] MEDS ORDERED: LIDOCAINE 2% INJ 20 MG/ML (20 ML MDV) ONE (13:14)
[2017-08-20] MEDS ORDERED: diphenhydrAMINE 50 MG/ML 1 ML VIAL ONE (13:15)
[2017-08-20] MEDS ORDERED: fentaNYL (PF) 50 MCG/ML 2 ML AMP ONE (13:15)
[2017-08-20] MEDS ORDERED: LIDOCAINE 2% INJ 20 MG/ML SQ ONE (13:35)
[2017-08-20] MEDS ORDERED: fentaNYL (PF) 50 MCG/ML 2 ML AMP IV ONE (13:35)
[2017-08-20] MEDS ORDERED: VERAPAMIL SYRINGE (5 MG/10 ML) INTRAARTER ONE (13:38)
[2017-08-20] MEDS ORDERED: HEPARIN SODIUM 1,000 UN/ML (10ML VL) IV ONE (13:49)
[2017-08-20] MEDS ORDERED: IODIXANOL 320 MG/ML 100 ML INTRAARTER ONE (13:57)
[2017-08-20] MEDS ORDERED: IV FLUID CONTINUATION 1,000 ML IV ONE (13:58)
[2017-08-20] MEDS ORDERED: RX INFO: IV CONTRAST WAS GIVEN 1 EACH MISC MISCELLANE PRN (14:07)
[2017-08-20] MEDS ORDERED: HEPARIN SODIUM,PORCINE 5,000 UNIT/ML 1 ML VIAL IV PRN (14:10)
[2017-08-20] MEDS ORDERED: SODIUM CHLORIDE 0.9% 1,000 ML IV SCH (14:15)
[2017-08-20 14:49] VITALS: BMI 27.8
[2017-08-20 15:40] LABS: Basophils % (A) 0 %; CH 25.1; CHCM 28.6; Eosinophils # (A) 0.4 k/uL (0-0.7); Eosinophils % (A) 4 %; HCT 32.4 % (34.0-46.0); HDW 2.85; HGB 9.6 gm/dL (11.4-16.0); Hypochromasia Marked; Luc # (Auto) 0.16; Luc % (Auto) 2; Lymphocytes # (A) 1.3 k/uL (1.0-4.8); Lymphocytes % (A) 17 %; MCH 26.1 pg (25.0-35.0); MCHC 29.6 g/dL (31.0-37.0); Mean Platelet Volume 7.5; Monocytes # (A) 0.5 k/uL (0-1.0); Monocytes % (A) 6 %; Neutrophils # (A) 5.8 k/uL (1.3-7.7); Neutrophils % (A) 71 %; RBC 3.68 m/uL (3.80-5.40); RDW 14.5 % (11.5-15.5); WBC 8.1 k/uL (3.8-10.6); WBC (Perox) 8.47
[2017-08-20 15:50] LABS: INR 1.2 (<1.2); Prothrombin Time 11.6 sec (9.0-12.0)
--- NOTE | 2017-08-20 16:17 | P.GSCN ---
<Leandra Navarrete - Last Filed: 08/20/17 15:40> History of Present Illness Consult date: 08/20/17 Reason for Consult: Coronary artery disease, non-STEMI, surgical recommendations. Requesting physician: Ena Castorena History of present illness: This 71-year-old female presented to the emergency room with increasing weakness and shortness of breath. Apparently, she was recently admitted for chest pain and shortness of breath with workup including echocardiogram and stress test. The echocardiogram was sub-optimal. The Lexiscan stress test demonstrated possible small area of reversibility at the cardiac apex. Of note , this patient has had several previous admissions this year including for pneumonia, COPD exacerbation, angiography with celiac trunk dilatation and stent placement, as well as diverticulitis. With this admission, her daughter stated that she was so weak she was unable to lift herself or eat on her own. She denied any abdominal pain but did endorse emesis the night before coming in. She denied headache, dizziness, lightheadedness, diarrhea. Cardiac troponins were drawn with the third troponin maximizing at 1.830. Her EKG demonstrated some ST depression which was not present on her previous admission. The patient was started on a heparin drip and admitted for cardiac catheterization which was completed this morning. The catheterization demonstrated left main stenosis 80%, totally occluded right coronary artery, 30 % stenosis in the circumflex artery, and 40% stenosis in the proximal LAD. Repeat echocardiogram done today demonstrated mild concentric left ventricular hypertrophy, normal left ventricular function with an ejection fraction of 55-60 %, mild aortic stenosis with a peak gradient of 16.98 mmHg and a mean gradient of 10.62 mmHg, mild mitral regurgitation, and mild tricuspid regurgitation. Dr. May from cardiothoracic surgery was consulted regarding left main disease and surgical recommendations. Review of Systems 14 point review systems was completed and was negative except as noted. - Constitutional Reports as per HPI, Reports fatigue, Reports lethargy, Reports poor appetite, Reports weakness - Cardiovascular Reports as per HPI, Reports chest pain, Reports dyspnea on exertion, Reports edema, Reports leg edema - Respiratory Reports as per HPI, Reports dyspnea, Reports home oxygen - Gastrointestinal Reports as per HPI, Reports vomiting - Integumentary Reports dryness Past Medical History Past Medical History: Cancer, COPD, Diabetes Mellitus, GERD/Reflux, Hearing Disorder / Deafness, Hyperlipidemia, Hypertension, Osteoarthritis (OA), Pneumonia, Skin Disorder, Vascular Disorder Additional Past Medical History / Comment(s): L BREAST CANCER WITH LUMPECTOMY- WAS TO HAVE RADIATION TXS BUT HASN'T YET D/T OTHER HEALTH PROBLEMS, HOME O2 PRN , ABDOMINAL AORTIC ANEURYSM, CARATID ARTERY DISEASE, IDDM TYPE II, GALENA BILATERALLY, ATHRITIS MULTIPLE JOINTS, NEPHROLITHIASIS-PT PASSED STONE ON HER OWN, PSORIASIS, DIVERTICULAR DISEASE, ALLERGIC RHINITIS. History of Any Multi-Drug Resistant Organisms: None Reported Past Surgical History: Breast Surgery, Section, Cholecystectomy Additional Past Surgical History / Comment(s): LEFT BREAST BIOPSY R/T POSITIVE MAMMOGRAM/lumpectomy, angiogram with the celiac trunk dilatation with stent placement of the SMA, BILATERAL OOPHORECTOMY/SALPINGECTOMY, EGD. Past Anesthesia/Blood Transfusion Reactions: No Reported Reaction Past Psychological History: No Psychological Hx Reported Smoking Status: Former smoker (smokes one pack a day for 30 years) Past Alcohol Use History: None Reported Past Drug Use History: None Reported - Past Family History Brother(s) Family Medical History: Congestive Heart Failure (CHF), Myocardial Infarction ( ND) Mother Additional Family Medical History / Comment(s): BREAST CANCER WITH METS TO LIVER AND BONES. Father Family Medical History: CVA/TIA Daughter(s) Family Medical History: No Reported History Medications and Allergies Home Medications Medication Instructions Recorded Confirmed Type Enalapril [Vasotec] 5 mg PO DAILY 01/06/15 08/21/17 History Isosorbide Mononitrate ER [Imdur] 30 mg PO DAILY 01/06/15 08/21/17 History Insulin Aspart [NovoLOG] 20 unit SQ AC-TID 12/09/16 08/21/17 History Insulin Glargine,Hum.rec.anlog 70 units SQ HS 12/09/16 08/21/17 History [Toujeo Solostar] Atorvastatin [Lipitor] 40 mg PO HS 03/10/17 08/21/17 History Clopidogrel [Plavix] 75 mg PO DAILY 03/10/17 08/21/17 History Aspirin EC [Ecotrin Low Dose] 81 mg PO DAILY #30 tablet. 08/16/17 08/21/17 Rx Cephalexin [Keflex] 500 mg PO Q8HR #21 cap 09/28/17 10/03/17 Rx Metoprolol Succinate (ER) [Toprol 50 mg PO DAILY #30 tab 08/16/17 08/21/17 Rx XL] Nitroglycerin Sl Tabs [Nitrostat] 0.4 mg SUBLINGUAL Q5M PRN #25 tab 08/16/1702/02 Rx Allergies Allergy/AdvReac Type Severity Reaction Status Date / Time azithromycin Allergy Rash/Hives Verified 08/21/17 12:28 Surgical - Exam Vital Signs Temp Pulse Resp BP Pulse Ox 97.6 F 83 20 179/75 99 08/18/17 09:28 08/18/17 09:28 08/18/17 09:28 08/18/17 09:28 08/18/17 09:28 - General Appears weak and tired, mild distress. no pain, chronically ill, obese - Eyes normal ocular movement - ENT decreased hearing - Neck no masses, trachea midline - Respiratory Lungs sounds diminished with expiratory wheezes heard bilaterally. Currently on 4 L nasal cannula with oxygen saturation 97%. - Cardiovascular Sinus rhythm on telemetry. Bilateral lower extremity edema present. Palpable DP pulses bilaterally. Right radial T-band present. Rhythm: regular Heart Sounds: normal: S1, S2 - Abdomen Abdomen: soft, non tender, bowel sounds - Genitourinary Deferred - Rectum Deferred - Integumentary Bilateral lower extremities reddened, very dry and scaly. - Psychiatric oriented to time, oriented to person, oriented to place, speech is normal Results - Labs 08/19/17 02:21 08/20/17 03:12 Abnormal Lab Results - Last 24 Hours (Table) 08/19/17 08/19/17 08/19/17 Range/Units 16:42 19:59 21:12 APTT 36.2 H (22.0-30.0) sec Sodium (137-145) mmol/L Chloride (98-107) mmol/L BUN (7-17) mg/dL Creatinine (0.52-1.04) mg/dL Glucose (74-99) mg/dL POC Glucose (mg/dL) 197 H 159 H (75-99) mg/dL AST (14-36) U/L ALT (9-52) U/L Alkaline Phosphatase (38-126) U/L Total Protein (6.3-8.2) g/dL Albumin (3.5-5.0) g/dL 08/20/17 08/20/17 08/20/17 Range/Units 03:09 03:12 06:24 APTT 38.7 H (22.0-30.0) sec Sodium 135 L (137-145) mmol/L Chloride 97 L (98-107) mmol/L BUN 24 H (7-17) mg/dL Creatinine 1.09 H (0.52-1.04) mg/dL Glucose 187 H (74-99) mg/dL POC Glucose (mg/dL) 183 H (75-99) mg/dL AST 38 H (14-36) U/L ALT 68 H (9-52) U/L Alkaline Phosphatase 128 H (38-126) U/L Total Protein 5.6 L (6.3-8.2) g/dL Albumin 3.0 L (3.5-5.0) g/dL 08/20/17 Range/Units 11:59 APTT (22.0-30.0) sec Sodium (137-145) mmol/L Chloride (98-107) mmol/L BUN (7-17) mg/dL Creatinine (0.52-1.04) mg/dL Glucose (74-99) mg/dL POC Glucose (mg/dL) 152 H (75-99) mg/dL AST (14-36) U/L ALT (9-52) U/L Alkaline Phosphatase (38-126) U/L Total Protein (6.3-8.2) g/dL Albumin (3.5-5.0) g/dL Diabetes panel 08/20/17 Range/Units 03:12 Sodium 135 L (137-145) mmol/L Potassium 4.7 (3.5-5.1) mmol/L Chloride 97 L (98-107) mmol/L Carbon Dioxide 30 (22-30) mmol/L BUN 24 H (7-17) mg/dL Creatinine 1.09 H (0.52-1.04) mg/dL Glucose 187 H (74-99) mg/dL Calcium 8.5 (8.4-10.2) mg/dL AST 38 H (14-36) U/L ALT 68 H (9-52) U/L Alkaline Phosphatase 128 H (38-126) U/L Total Protein 5.6 L (6.3-8.2) g/dL Albumin 3.0 L (3.5-5.0) g/dL Calcium panel 08/20/17 Range/Units 03:12 Calcium 8.5 (8.4-10.2) mg/dL Albumin 3.0 L (3.5-5.0) g/dL Pituitary panel 08/20/17 Range/Units 03:12 Sodium 135 L (137-145) mmol/L Potassium 4.7 (3.5-5.1) mmol/L Chloride 97 L (98-107) mmol/L Carbon Dioxide 30 (22-30) mmol/L BUN 24 H (7-17) mg/dL Creatinine 1.09 H (0.52-1.04) mg/dL Glucose 187 H (74-99) mg/dL Calcium 8.5 (8.4-10.2) mg/dL Adrenal panel 08/20/17 Range/Units 03:12 Sodium 135 L (137-145) mmol/L Potassium 4.7 (3.5-5.1) mmol/L Chloride 97 L (98-107) mmol/L Carbon Dioxide 30 (22-30) mmol/L BUN 24 H (7-17) mg/dL Creatinine 1.09 H (0.52-1.04) mg/dL Glucose 187 H (74-99) mg/dL Calcium 8.5 (8.4-10.2) mg/dL Total Bilirubin 0.3 (0.2-1.3) mg/dL AST 38 H (14-36) U/L ALT 68 H (9-52) U/L Alkaline Phosphatase 128 H (38-126) U/L Total Protein 5.6 L (6.3-8.2) g/dL Albumin 3.0 L (3.5-5.0) g/dL - Imaging Chest x-ray: report reviewed, image reviewed EKG: image reviewed Additional studies: Cath report, echo report reviewed. Assessment and Plan (1) COPD (chronic obstructive pulmonary disease) Status: Acute (2) Insulin dependent diabetes mellitus Status: Acute (3) Hypertension Status: Acute (4) Hyperlipidemia Status: Acute (5) Peripheral vascular disease Status: Acute (6) Carotid artery disease Status: Acute (7) Tobacco dependence in remission Status: Acute (8) On home oxygen therapy Status: Acute (9) Generalized weakness Status: Acute (10) Non-STEMI (non-ST elevated myocardial infarction) Status: Acute Plan: The patient was seen and examined at the bedside. Chart/diagnostics were reviewed. Preoperative teaching started with patient, she indicated that she is not sure she would want surgery, she does want a second opinion and wants to discuss it with her children. Of note she did have Plavix this morning, optimally she should be off Plavix for 5-7 days prior to surgery. Will order pre-operative testing and discuss the case with Dr. May. More recommendations to follow. Thank you Dr. Castorena for this consult. We look forward to working with you in the care of your patient. Time with Patient: Greater than 30 <Marshall May - Last Filed: 08/21/17 14:46> Surgical - Exam Vital Signs Temp Pulse Resp BP Pulse Ox 97.6 F 83 20 179/75 99 08/18/17 09:28 08/18/17 09:28 08/18/17 09:28 08/18/17 09:28 08/18/17 09:28 Results - Labs 08/20/17 15:21 08/20/17 03:12 Abnormal Lab Results - Last 24 Hours (Table) 08/20/17 08/20/17 08/20/17 Range/Units 15:21 15:21 16:57 RBC 3.68 L (3.80-5.40) m/uL Hgb 9.6 L (11.4-16.0) gm/dL Hct 32.4 L (34.0-46.0) % MCHC 29.6 L (31.0-37.0) g/dL INR 1.2 H (<1.2) APTT 35.0 H (22.0-30.0) sec ABG pH (7.35-7.45) ABG pCO2 (35-45) mmHg ABG pO2 (83-108) mmHg ABG HCO3 (21-25) mmol/L ABG Total CO2 (19-24) mmol/L ABG O2 Saturation (94-97) % POC Glucose (mg/dL) 137 H (75-99) mg/dL 08/20/17 08/20/17 Range/Units 19:05 19:24 RBC (3.80-5.40) m/uL Hgb (11.4-16.0) gm/dL Hct (34.0-46.0) % MCHC (31.0-37.0) g/dL INR (<1.2) APTT (22.0-30.0) sec ABG pH 7.12 L* (7.35-7.45) ABG pCO2 105 H* (35-45) mmHg ABG pO2 78 L (83-108) mmHg ABG HCO3 33 H (21-25) mmol/L ABG Total CO2 36 H (19-24) mmol/L ABG O2 Saturation 89.0 L (94-97) % POC Glucose (mg/dL) 254 H (75-99) mg/dL Assessment and Plan Plan: The patient was seen and examined. The patient is a 71-year-old female with multiple comorbidities who has been in and out of the hospital on multiple occasions over the past several months. Cardiac catheterization performed today reveals multivessel coronary artery disease. Upon further questioning, the patient is quite debilitated. She is essentially nonambulatory and homebound. She recently received a stent for what sounds like intestinal angina. She is also on home oxygen. In addition she has chronic skin changes in her lower extremities. Given all these findings, I do not believe she would be a good candidate for coronary artery bypass surgery. For this reason I am recommending consideration of high-risk PCI versus medical management. I did convey my recommendation to Dr. Castorena who is in agreement.
[2017-08-20] MEDS ORDERED: HEPARIN SODIUM,PORCINE/D5W PMX 25,000 UNIT in DEXTROSE/WATER 1 500ML.BAG IV SCH (16:30)
[2017-08-20 17:18] LABS: Glucose,Whole Blood 137 mg/dL (75-99)
[2017-08-20 18:21] VITALS: TEMP 97.9
[2017-08-20 18:31] VITALS: BP 156/70
[2017-08-20] MEDS ORDERED: FUROSEMIDE 10 MG/ML 4 ML VIAL IV STA (19:00)
[2017-08-20] MEDS ORDERED: IPRATROPIUM-ALBUTEROL 3 ML NEB INHALATION STA (19:05)
[2017-08-20 19:19] LABS: Glucose,Whole Blood 254 mg/dL (75-99)
[2017-08-20] MEDS ORDERED: methylPREDNISolone SOD SUCCI 125 MG/2 ML VIAL IV STA (19:26)
[2017-08-20 19:38] LABS: ABG HCO3 33 mmol/L (21-25); ABG PCO2 105 mmHg (35-45); ABG PH 7.12 (7.35-7.45); ABG PO2 78 mmHg (83-108)
[2017-08-20 19:39] LABS: ABG Base Excess 3.6 mmol/L; ABG TCO2 36 mmol/L (19-24)
--- NOTE | 2017-08-20 19:55 | XR ---
EXAMINATION TYPE: XR chest 1V portable DATE OF EXAM: 08/20/2017 at 7:14 PM COMPARISON: 08/19/2017 at 8:44 AM HISTORY: Difficulty breathing TECHNIQUE: AP upright portable FINDINGS: Since prior study a fine reticular pattern of increased density seen throughout the mid and lower lungs symmetrically silhouetting the pulmonary vasculature to a marked degree. These changes a re in keeping with interval development of moderate interstitial phase pulmonary edema. There is mild enlargement of the cardiac silhouette, unchanged. Pleural spaces are negative as seen. Bones and soft tissues are unremarkable. IMPRESSION: NEWLY DEVELOPED MODERATE INTERSTITIAL PHASE PULMONARY EDEMA.
[2017-08-20] MEDS ORDERED: LORazepam 0.5 MG TAB PO PRN (20:08)
[2017-08-20] MEDS ORDERED: HALOPERIDOL 0.5 MG TAB PO PRN (20:08)
[2017-08-20] MEDS ORDERED: SCOPOLAMINE 1.5MG/72HR PATCH TRANSDERM PRN (20:08)
[2017-08-20] MEDS ORDERED: DRY MOUTH SPRAY 44.3 SPRAY/44.3 ML SPRAY MUCOUS MEM PRN (20:08)
[2017-08-20] MEDS ORDERED: ATROPINE OPHTH SOLN 1% 5ML BTL SUBLINGUAL PRN (20:08)
[2017-08-20] MEDS ORDERED: METOCLOPRAMIDE 5 MG/ML 2 ML VIAL IVP PRN (20:08)
[2017-08-20] MEDS ORDERED: MORPHINE SULFATE 2 MG/ML SYRINGE IV PRN (20:08)
[2017-08-20] MEDS ORDERED: MORPHINE SULFATE (100 MG/2 ML) 100 MG in SODIUM CHLORIDE 0.9% 100 ML IV SCH (20:15)
[2017-08-20] MEDS ORDERED: INSULIN GLARGINE 100 UNIT/ML 10 ML VIAL SQ SCH (21:00)
[2017-08-20] MEDS: ATORVASTATIN 40 MG TAB PO SCH (21:14)
--- NOTE | 2017-08-20 21:26 | CC ---
CARDIAC CATHETERIZATION REPORT Mrs. Crawley is a 71-year-old female with a history of hypertension, hyperlipidemia, diabetes mellitus, history of peripheral vascular disease, who recently was readmitted to the hospital with symptoms of progressive dyspnea and fatigue and was found to have mild elevation of her troponin. In view of that recommendation made regarding cardiac catheterization. The procedure as well as risks and complication were discussed with the patient and her family and are in full understanding and agreement. 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 Selective right and left coronary angiography was performed using 5-Palauan 3 and half bend left Shalini catheter and 4 bend right Shalini catheter. Multiple views of the coronary artery including hemiaxial views were obtained. Following that, a 5-Palauan tight pigtail catheter was introduced into the left ventricle and pressures were calculated. Following that, catheter and sheaths were removed. Hemostasis was obtained with deployment of a TR band. There were no immediate complications. Patient returned to her room in stable condition. Of note, the patient received 4000 units of intravenous heparin as well as intra-arterial verapamil. FINDINGS: Fluoroscopy: There was severe calcification involving all the coronary tree. Left main: This is a large-sized vessel bifurcating into the left circumflex and left anterior descending artery, left main coronary artery is heavily calcified and has an 80% to 90% stenosis in the mid segment. There was also the appearance of an ostial lesion with dampening. Left anterior descending artery: This is a very tortuous vessel proximally, calcified has plaques in the proximal segment of 30-40%. The distal vessel has no evidence of high-grade stenosis with diffuse mild intimal disease. Left circumflex: This is a nondominant vessel giving rise to 2 obtuse marginal branch of moderate caliber. The left circumflex and its branches have mild intimal disease without any evidence of high-grade stenosis. Right coronary artery: This vessel is totally occluded proximally with no antegrade flow. Collaterals there is collaterals from the left coronary system toward the right PDA. Left ventriculogram: Left ventriculogram was not performed. Hemodynamics: There was no gradient across the aortic valve. The left ventricular end- diastolic pressure was 36-38 minute Hg. CONCLUSION: 1. Critical mid left main disease with calcified coronary arteries. 2. Mild disease in the LAD and left circumflex. 3. Chronically occluded right coronary artery. RECOMMENDATION: In view of the findings and anatomy, I have recommended proceeding with evaluation for coronary bypass grafting. Those findings and recommendations were discussed with the patient and her family who are in full understanding and agreement. The prognosis is guarded. The procedure duration is 26 minutes. JOSEPHINE / ROSEY: [id number] /
[2017-08-20] MEDS: methylPREDNISolone SOD SUCCI 125 MG/2 ML VIAL IV SCH (22:55)
[2017-08-21 02:33] VITALS: RESP 16
[2017-08-21] MEDS: INSULIN LISPRO (humaLOG) 300 UNIT/3 ML VIAL SQ SCH ×2 (03:01)
[2017-08-21] MEDS: IPRATROPIUM-ALBUTEROL 3 ML NEB INHALATION SCH (07:37)
[2017-08-21] MEDS: methylPREDNISolone SOD SUCCI 125 MG/2 ML VIAL IV SCH (08:41)
[2017-08-21] MEDS: CEPHALEXIN 500 MG CAP PO SCH (08:41)
[2017-08-21] MEDS: LISINOPRIL 10 MG TAB PO SCH (08:41)
[2017-08-21] MEDS: ASPIRIN 81 MG PO SCH (08:41)
[2017-08-21] MEDS: METOPROLOL SUCCINATE (ER) 50 MG TAB.ER.24H PO SCH (08:41)
[2017-08-21 08:44] VITALS: PULSE 75
--- NOTE | 2017-08-21 13:33 | P.DS ---
Providers Date of admission: 08/18/17 12:20 Expected date of discharge: 08/21/17 Attending physician: Rich Gamez MD Primary care physician: [facility] Course: 71 Year-Old female with a previous medical history significant for hypertension and hypertensive cardiovascular disease, hyperlipidemia, insulin- dependent diabetes mellitus type 2, abdominal aortic aneurysm , carotid artery disease, COPD on home 2 L was hospitalized at [facility] for right middle lobe pneumonia and COPD exacerbation and was recently discharged around November 2016 , the patient was discharged home and came back a few days later with significant abdominal pain radiating to the back associated with nausea but no vomiting patient at that time was hospitalized under were service and she was seen and evaluated by gastroenterology as well as general surgery underwent a CT abdomen pelvis with contrast and at the same time underwent ultrasound of the gallbladder and EGD she was diagnosed with esophagitis as well as cholelithiasis underwent laparoscopic cholecystectomy and the patient was discharged home in a stable condition. 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 She was seen in February for acute diverticulitis for which patient was treated with antibiotic and sent home.he was admitted on 08/15 for shortness of breath associated with substernal chest pain worsening with exertion. She also complained of worsening swelling of lower extremity. Workup included echocardiogram was done which was a difficult study and pressures of the heart could not be obtained but EF was between 55-60% with no abnormality in the wall seen. Patient underwent stress test that showed possible small area of ischemia at the base of the heart. Dr. Summers decided to continue her on statins, Imdur and changed atenolol to Toprol-XL 50 mg daily. Patient was also seen by Dr. Woo regarding concern for cellulitis of the lower extremities. Venous Doppler studies of the lower extremities negative for DVT bilaterally. Dr. Woo noted that this was a chronic dermatitis of the lower extremities, he recommended transcend alone cream and follow up with the dermatology appointment that has been arranged. Patient was sent home on a short course of antibiotic treatment. Patient came back to the ED today with worsening weakness and shortness of breath. According to the daughter bedside patient was unable to even lift herself and eat on her own vomiting last night. She also endorses heart burn, nausea and vomiting. Patient states that her shortness of breath has also worsened. Patient denies any abdominal pain, hematochezia Iuliano hematemesis, melena, dysuria, hematuria or urinary frequency. Patient denies any cough production, fever, chills or wheezing she uses 2 L off oxygen at baseline for her COPD but is currently using 3 L. Workup done in the ED includes CBC, BMP which was unremarkable. Patient did have a evaluated CK-MB and troponin of 0.98. Patient's BNP has increased from 300 to 1500 in the past [address] depression in V4 V5 and V6. EKG 3 days ago was normal sinus rhythm. Patient started on heparin drip and is admitted cardiology consult will be placed and patient may likely need a cardiac catheterization. 08/19: Patient was seen and evaluated today. She was noted to be resting comfortably in bed in no acute distress. She did receive a dose of IV Dilaudid for some right shoulder pain. She was very drowsy this morning, but easily arousable. Nursing staff states they had some difficulty arousing patient right after receiving Dilaudid. For this reason Dilaudid was discontinued. A shoulder x-ray was ordered, arterial ultrasound bilateral lower extremities also ordered to rule out peripheral artery disease. She denies any chest pain or shortness of breath, she continues to receive IV heparin, she is scheduled for a cardiac cath on Sunday with Dr. Castorena. 08/20: Liver function tests are mildly elevated with AST of 38, ALT 68, alkaline phosphatase 128. Acute hepatitis panel and ultrasound liver ordered. Patient states that she had a rough night and was up out of bed frequently and was confused. Xanax will be discontinued. Lower extremity edema is decreased. She is requiring O2 at 3 L and pulse oxing 97%. Blood sugars are elevated for which Lantus was increased and Humalog scheduled added. Also admitted in DuoNeb treatments scheduled. Echocardiogram reveals mild aortic stenosis, mild mitral regurgitation, mild tricuspid regurgitation, EF 55-60%. Patient scheduled for heart catheterization today. 08/21: Patient underwent heart catheterization with Dr. Samman yesterday finding a critical mid left main disease with calcified coronary arteries, mild disease in the LAD and left circumflex, chronically occluded right coronary artery. Patient has been seen by cardiothoracic surgeon for CABG at this time patient is undecided. Patient is on Plavix which will need to be discontinued for 5-7 days prior to surgery. Repeat chest x-ray shows newly developed moderate interstitial phase pulmonary edema. Lasix 40 mg IV push was given last evening. Patient has decided against surgical intervention and patient has been made comfort care during the night. All aggressive treatment will be held and patient will be transferred to the oncology unit. Consult placed with hospice. Discharge diagnoses: 1. Non-ST elevated myocardial infarction. 2. Chronic dermatitis of lower extremity 3 acute on chronic hypoxic respiratory failure secondary to severe COPD and pulmonary edema with acute systolic heart failure 4. 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 5. Diabetes Mellitus type 2. 6. Hypertension. 7. Hyperlipidemia. 8. Breast cancer post left lumpectomy. 9. Allergic Rhinitis. asymptomatic 10. Elevated liver function tests. 13. Acute delirium. Discharge plan: [facility] as GIP Impression and plan of care have been directed as dictated by the signing physician. Sanam Dow nurse practitioner acting as scribe for signing physician. Patient Condition at Discharge: Undetermined Plan - Discharge Summary New Discharge Prescriptions: No Action Enalapril [Vasotec] 5 mg PO DAILY Isosorbide Mononitrate ER [Imdur] 30 mg PO DAILY Insulin Glargine,Hum.rec.anlog [Toujeo Solostar] 70 units SQ HS Insulin Aspart [NovoLOG] 20 unit SQ AC-TID Clopidogrel [Plavix] 75 mg PO DAILY Atorvastatin [Lipitor] 40 mg PO HS Aspirin EC [Ecotrin Low Dose] 81 mg PO DAILY #30 tablet. Cephalexin [Keflex] 500 mg PO Q8HR #21 cap Metoprolol Succinate (ER) [Toprol XL] 50 mg PO DAILY #30 tab Nitroglycerin Sl Tabs [Nitrostat] 0.4 mg SUBLINGUAL Q5M PRN #25 tab PRN Reason: Chest Pain Discharge Medication List Enalapril [Vasotec] 5 mg PO DAILY 01/06/15 [History] Isosorbide Mononitrate ER [Imdur] 30 mg PO DAILY 01/06/15 [History] Insulin Aspart [NovoLOG] 20 unit SQ AC-TID 12/09/16 [History] Insulin Glargine,Hum.rec.anlog [Toujeo Solostar] 70 units SQ HS 12/09/16 [ History] Atorvastatin [Lipitor] 40 mg PO HS 03/10/17 [History] Clopidogrel [Plavix] 75 mg PO DAILY 03/10/17 [History] Aspirin EC [Ecotrin Low Dose] 81 mg PO DAILY #30 tablet.dr 08/16/17 [Rx] Cephalexin [Keflex] 500 mg PO Q8HR #21 cap 08/16/17 [Rx] Metoprolol Succinate (ER) [Toprol XL] 50 mg PO DAILY #30 tab 08/16/17 [Rx] Nitroglycerin Sl Tabs [Nitrostat] 0.4 mg SUBLINGUAL Q5M PRN #25 tab 08/16/17 [Rx ] Follow up Appointment(s)/Referral(s): Rusty Lewis MD [Primary Care Provider] - 1-2 days Discharge Disposition: HOME WITH HOME HEALTH SERVICES
--- NOTE | 2017-08-29 12:50 | P.ARTDOP ---
Arterial Doppler LOWER EXTREMITY ARTERIAL DOPPLER: DATE OF SERVICE: 08/19/2017 Reason for study: Weakness. Doppler waveforms: Multiphasic at the femoral and atypical below. Pulse volume recording: Normal configuration of the femoral and blunting below. Metatarsal and digital are nearly flat line.. Pressure gradients: Gradient above the low femoral and below the knee.. Ankle-brachial indices: 0.55 on the right and 0.53 on the left. Toe pressures: [] on the right, [] on the left Impression: Suspect moderate bilateral femoral popliteal occlusive disease. Clinical correlation recommended..
== END 2017-08-21 11:53 | disposition home health service (06) | DRG 280 ==
LOC: EC 09:25 → 6SEL 12:20 → 5ONC 08-21 10:51
PROVIDERS: ADMIT Internal Medicine; ATTEND Internal Medicine
PROC: B2111ZZ Fluoroscopy of Multiple Coronary Arteries using Low Osmolar Contrast (ICD-10-PCS; 2017-08-20)
PROC: 4A023N7 Measurement of Cardiac Sampling and Pressure, Left Heart, Percutaneous Approach (ICD-10-PCS; principal; 2017-08-20 13:01)
DX: I21.4 Non-ST elevation (NSTEMI) myocardial infarction (principal); I50.21 Acute systolic (congestive) heart failure; J96.21 Acute and chronic respiratory failure with hypoxia; J44.9 Chronic obstructive pulmonary disease, unspecified; I08.3 Combined rheumatic disorders of mitral, aortic and tricuspid valves; I11.0 Hypertensive heart disease with heart failure; E78.5 Hyperlipidemia, unspecified; H91.90 Unspecified hearing loss, unspecified ear; K21.9 Gastro-esophageal reflux disease without esophagitis; I25.10 Atherosclerotic heart disease of native coronary artery without angina pectoris; J30.9 Allergic rhinitis, unspecified; R41.0 Disorientation, unspecified; E11.51 Type 2 diabetes mellitus with diabetic peripheral angiopathy without gangrene; L30.9 Dermatitis, unspecified; Z79.02 Long term (current) use of antithrombotics/antiplatelets; Z87.891 Personal history of nicotine dependence; Z79.4 Long term (current) use of insulin; Z79.82 Long term (current) use of aspirin; Z79.899 Other long term (current) drug therapy; Z80.3 Family history of malignant neoplasm of breast; Z82.49 Family history of ischemic heart disease and other diseases of the circulatory system; Z85.3 Personal history of malignant neoplasm of breast; Z87.442 Personal history of urinary calculi; Z99.81 Dependence on supplemental oxygen; Z87.01 Personal history of pneumonia (recurrent); Z90.722 Acquired absence of ovaries, bilateral; Z90.79 Acquired absence of other genital organ(s); Z82.3 Family history of stroke; Z88.1 Allergy status to other antibiotic agents
CPT/HCPCS: 36415; 36600; 51701; 71010; 71020; 78452; 80048; 80053; 80061; 80074; 81001; 82550; 82553; 82805; 83036; 83735; 83880; 84484; 85025; 85049; 85610; 85730; 93005; 93017; 93306; 93458; 93923; 93970; 94640; 94660; 94760; 96365; 96366; 96367; 96368; 96374; 96375; 96376; 99285; 99291